=== PATIENT | male | born 1945 | race Caucasian/White ===

== ENCOUNTER 2023-09-02 23:40 | Inpatient (IN) | payer MEDICARE, OTHER, SELFPAY ==
[2023-09-02 20:07] VITALS: BP 158/78
[2023-09-02 21:06] LABS: % Basophils 0.3 % (0-2); % Eosinophils 0.8 % (0-6); % Immature Granulocytes 0.5 % (0-0.5); % Lymphocytes 12.6 % (20.5-51.1); % Monocytes 10.6 % (1.7-9.3); % Neutrophils 75.2 % (42.2-75.2); Absolute Eosinophils 0.1 10^3/uL (0-0.7); Absolute Immature Granulocytes 0.1 10^3/uL (0-0.05); Absolute Lymphocytes 1.3 10^3/uL (1.2-3.4); Absolute Monocytes 1.1 10^3/uL (0.1-0.6); Hematocrit 33.5 % (39.0-52.0); Hemoglobin 11.4 g/dL (13.0-18.0); Mean Corpuscular Hgb 27.8 pg (27.0-31.0); Mean Corpuscular Volume 81.7 fL (80.0-94.0); Mean Platelet Volume 10.5 fL (7.4-10.4); Nucleated Red Blood Cells % 0 % (-); Platelet Count 141 10^3/uL (130-400); Red Cell Dist. Width 15.9 % (11.5-14.5); White Blood Cell Count 10.6 10^3/uL (4.8-10.8)
[2023-09-02 21:07] LABS: Urine Albumin 3+ (Neg - Trace); Urine Bilirubin 1+ (Negative); Urine Character Very Cloudy (Clear); Urine Color Yellow; Urine Glucose Negative (Negative); Urine Ketone Trace (Negative); Urine Leukocyte 2+ (Negative); Urine Nitrite Positive (Negative); Urine Occult Blood 4+ (Negative); Urine Urobilinogen 2+ (Neg - 1+)
[2023-09-02 21:15] LABS: ALT (SGPT) 16 U/L (0-50); AST (SGOT) 21 U/L (17-59); Alkaline Phosphatase 73 U/L (38-126); Blood Urea Nitrogen 18 mg/dl (9-20); Calcium 9.3 mg/dl (8.4-10.2); Carbon Dioxide 26 mmol/L (22-30); Chloride 100 mmol/L (98-107); Glucose 161 mg/dl (70-99); Potassium 3.8 mmol/L (3.5-5.1); Sodium 134 mmol/L (135-145); Total Bilirubin 1.5 mg/dl (0.2-1.3); Total Protein 6.6 g/dl (6.3-8.2); eGFR > 60.00
[2023-09-02 21:23] LABS: Urine Bacteria Many (Negative); Urine White Cell >100 /HPF (0-5)
--- NOTE | 2023-09-02 21:57 | ED.GENMED ---
History of Present Illness
General
Chief Complaint: Urinary Symptoms
Source: patient
Exam Limitations: none
Time Seen by Provider: 09/02/23 21:13
Travel History
Have you had any contact with someone who has COVID-19?: No
Do you have any symptoms of coronavirus? Fever > 100 degrees, chills, cough, shortness of breath, sore throat, loss of taste or smell, muscle aches, or headache?: No
History of Present Illness
History of Present Illness:
78-year-old male with history of diabetes, coronary artery disease, hypertension hyperlipidemia presents with weakness chills and urinary frequency. He also notes a pus like material coming out when he urinates. He denies significant flank pain.
No vomiting. No chest pain or short breath. No other complaints at this time
Past History
Past History
ED Past Medical History: CAD, HTN, Hypercholesterolemia, NIDDM, Renal failure (Mild chronic kidney disease) and Other (BPH, low back pain, Sleep apnea, Kidney stones)
ED Past Surgical History: Cardiac (stent placement)
Patient has exhibited threatening behavior?: No
Social History
Tobacco: Non-smoker
Alcohol: None
Personal:
Living: with family
Employment: Retired
Family History
Family History: Other (Noncontributory)
Phy Exam
Physical Exam
Physical Exam:
General: Well-appearing male no acute respiratory distress
HEENT: Normocephalic atraumatic neck is supple
: Regular rate and rhythm no murmurs
Lungs: Clear no wheeze
Abdomen: Soft mild suprapubic tenderness no guarding or rebound normal bowel sounds
Extremities: No cyanosis
Skin: warm, no rashes
Neuro: Alert and oriented. no facial asymmetry
Course
Orders/Labs/Results
Orders:
Orders
09/02/23 20:55
Complete Blood Count/With Diff Urgent
Comprehensive Metabolic Panel Urgent
Urinalysis Reflex To Culture Urgent
Date Specimen was Collected: 09/02/23
Time Specimen was Collected: 20:41
Urine Microscopic Reflex Cult Urgent
Urine Culture Urgent
JOSE C Source: U
Specimen Description:
Date Specimen was Collected: 09/02/23
Time Specimen was Collected: 20:41
09/02/23 21:22
CT Abd/pel Without Iv Or Oral Urgent
Comment:
Reason For Exam: urinary sympoms
09/02/23 22:10
Lactic Acid Urgent
Blood Culture Q30M
JOSE C Source: Blood/Venous
Specimen Description:
Blood Culture Q30M
JOSE C Source: Blood/Venous
Specimen Description:
09/02/23 22:57
CefTRIAXone [Rocephin] 1,000 mg IV NOW STA
Abnormal Lab Results
09/02/23
20:55
RBC 4.10 L 10^6/uL
(4.70-6.10)
Hgb 11.4 L g/dL
(13.0-18.0)
Hct 33.5 L %
(39.0-52.0)
RDW 15.9 H %
(11.5-14.5)
MPV 10.5 H fL
(7.4-10.4)
Abs Immat Gran (auto) 0.1 H 10^3/uL
(0-0.05)
Absolute Neuts (auto) 8.0 H 10^3/uL
(1.4-6.5)
Absolute Monos (auto) 1.1 H 10^3/uL
(0.1-0.6)
Lymphocytes % 12.6 L %
(20.5-51.1)
Monocytes % 10.6 H %
(1.7-9.3)
Sodium 134 L mmol/L
(135-145)
Glucose 161 H mg/dl
(70-99)
Total Bilirubin 1.5 H mg/dl
(0.2-1.3)
Urine Ketones Trace A
(Negative)
Ur Occult Blood Reflex 4+ A
(Negative)
Urine Nitrite (Reflex) Positive A
(Negative)
Urine Bilirubin 1+ A
(Negative)
Urine Urobilinogen 2+ A
(Neg - 1+)
Leukocyte Esterase Rfl 2+ A
(Negative)
Urine WBC (Reflex) >100 A /HPF
(0-5)
Urine Bacteria (Reflex) Many A
(Negative)
Urine Albumin (Reflex) 3+ A
(Neg - Trace)
09/02/23 20:55
09/02/23 20:55
Vital Signs
Initial and Last Documented VS:
Initial Vital Signs
Temp Pulse Resp BP Pulse Ox
98.6 F 72 22 158/78 96
09/02/23 20:07 09/02/23 20:07 09/02/23 20:07 09/02/23 20:07 09/02/23 20:07
Last Documented Vital Signs
Temp Pulse Resp BP Pulse Ox
98.6 F 72 22 158/78 96
09/02/23 20:07 09/02/23 20:07 09/02/23 20:07 09/02/23 20:07 09/02/23 20:07
MDM/Problems Addressed
Differential Diagnosis Includes:
Urinary symptoms. Question UTI versus pyelonephritis versus kidney stone
Patient has multiple medical conditions affecting today's care including [id number] diabetes, coronary artery disease
Patient notes chills. Will check labs including lactic and blood cultures. Urinalysis pending will order CT
*Critical Care Note
Total Time (30-74mins, 75-104mins- exclusive of procedures): Not Applicable
Update Note
Update Note:
CT demonstrates signs of cystitis. Urinalysis with pyuria. Patient has multiple medical comorbidities. Will start Rocephin and admit to hospital.
ED Attending Note
-
Portions of this chart may have been created with voice recognition software.� Occasional wrong word or��sound alike� substitutions may have occurred due to the inherent limitations of voice recognition software.
Discharge Plan
Departure
Patient Disposition: Admit
Date of Disposition: 09/02/23
Time of Disposition: 23:00
Admit to: Telemetry
Presentation/result/management discussed w/ accepting MD/DO: Hospitalist
Discharge Problem:
Acute UTI
Prescriptions:
No Action
pioglitazone 15 MG tablet
15 mg PO DAILY
atorvastatin 40 MG tablet
40 mg PO DAILY
citalopram 10 MG tablet
1 mg PO DAILY
clopidogrel 75 MG tablet
75 mg PO DAILY
amlodipine 10 MG tablet
10 mg PO DAILY
metoprolol tartrate 50 MG tablet
50 mg PO BID
aspirin 81 MG tablet,chewable
81 mg PO DAILY
fenofibrate 160 MG tablet
160 mg PO DAILY
fesoterodine [Toviaz] 4 MG tablet extended release 24 hr
4 mg PO DAILY
plecanatide [Trulance] 3 MG tablet
3 mg PO DAILY
semaglutide [Ozempic] 1 MG/0.75 ML pen injector
1 ea SC WEEKLY
oxycodone-acetaminophen [Percocet] 5-325 mg Tablet
1 tab PO Q6HPRN PRN (Reason: pain) Qty: 12 0RF
Referrals:
NONE,* [Active] -
Interventions
Interventions:
ED-Male Genitourinary Assessment Last Done: 09/02/23 21:06
ED- Neurological Assessment Last Done: 09/02/23 21:06
Discharge Date and Time
Print Language: NIUEAN
[2023-09-02] MEDS: ROCEPHIN 1000 MG IV (23:03)
[2023-09-02] MEDS: NSS 1000 IV (23:04)
[2023-09-02 23:09] VITALS: BP 149/78
--- NOTE | 2023-09-02 23:23 | HPS.HSE ---
Family Physician
-
Family Physician: Lu Lopez NP
Chief Complaint
-
Urinary complaints
History of Present Illness
78 y/o Citizen Of [place] speaking male with hx of DM, CAD, HTN, HLD, enlarged prostate (just established with Urology) presents to ER for 1 day history of weakness. He reports progressive weakness. Also chills and urinary frequency. He noted pus with
urination. No flank pain. No vomiting, SOB or CP. No other complaints.
in ER, UA+ and CT showing cystitis, IVF and IV Abx were given
Medical History
Past Medical History
Past Medical History: Reports Other (DM, CAD, HTN, HLD, enlarged prostate)
Past Surgical History: Reports Cardiac (stent placement)
Social History
Tobacco: Non-smoker
Alcohol: None
Personal:
Living: With Family
Employment: Retired
Family History
Family History: Not pertinent
Allergies / Home Medications
Allergies reflects when Allergies were last updated in [facility].
Home Medications with original date entered in [facility]
Allergy/Medication List:
Allergies
Allergy/AdvReac Type Severity Reaction Status Date / Time
latex Allergy Rash Verified 09/02/23 20:10
Home Medications
amlodipine 10 mg tablet 10 mg PO DAILY 08/31/20
atorvastatin 40 mg tablet 40 mg PO HS 08/31/20
citalopram 10 mg tablet 10 mg PO DAILY 08/31/20
clopidogrel 75 mg tablet 75 mg PO DAILY 08/31/20
metoprolol tartrate 50 mg tablet 50 mg PO BID 08/31/20
cholecalciferol (vitamin D3) 1,250 mcg (50,000 unit) tablet 1,250 mcg PO Q5D 09/02/23
dulaglutide 4.5 mg/0.5 mL subcutaneous pen injector (Trulicity) 4.5 mg SC WE 09/02/23
pantoprazole 40 mg tablet,delayed release 40 mg PO DAILY PRN GERD 09/02/23
pioglitazone 30 mg tablet 30 mg PO DAILY 09/02/23
Review of Systems
-
A 12 point ROS was completed and negative except as noted: Yes
Physical Exam
Vital Signs
Vital Signs
Temp Pulse Resp BP Pulse Ox
98.6 F 63 12 158/78 95
09/02/23 20:07 09/02/23 23:15 09/02/23 23:15 09/02/23 20:07 09/02/23 23:15
Physical Exam
General: Well Developed and Well Nourished
HEENT: NormoCephalic and Anicteric
Respiratory: No Wheezes or Rales
Cardiac: S1/S2 and Regular Rhythm
GI: Soft
Neuro: AO x 3
Hematologic/Lymphatic: No Lymphadenopathy
Psych: Calm
Laboratory Results
-
09/02/23 20:55
09/02/23 20:55
Laboratory Results
Lactic Acid 1.0 mmol/L (0.7-2.0) 09/02/23 22:10
Total Bilirubin 1.5 mg/dl (0.2-1.3) H 09/02/23 20:55
AST 21 U/L (17-59) 09/02/23 20:55
ALT 16 U/L (0-50) 09/02/23 20:55
Alkaline Phosphatase 73 U/L (38-126) 09/02/23 20:55
Data Reviewed
-
CT Scan: Report Reviewed by me
Lab Data: Labs Reviewed by me
Impression/Plan
-
Assessment:
Cystitis/UTI
Suspected underlying enlarged prostate
- + UA, negative CT
- empiric Rocephin pending cultures
generalized weakness from above UTI
- PT/OT
Type 2 DM
- hold Trulicity/Actos
- continue SSI
- check A1c
CAD s/p stent
Essential HTN
HLD
- continue BP meds
- continue Plavix/Statin
DVT ppx: SCDs
Code: Full
[2023-09-03] VITALS (13 sets, daily range): BP systolic 134–215; BP diastolic 62–89; PULSE 70–74; O2SAT 95; BMI 55.4
[2023-09-03] MEDS: NSS 1000 IV ×3 (00:47→20:54)
--- NOTE | 2023-09-03 00:54 | PTCARENOTE ---
Mannual BP 170/68. BP reposted to Wesley REYES. Will recheck BP at 0400 per provider.
--- NOTE | 2023-09-03 03:23 | DOWNTIME ---
There was a [employer] Downtime on 09/02/2023 from 0100 to 09/03/2023 at 0300. Downtime documentation of patient's care, including medication administrations, has been reconciled in the electronic record per guidelines. Refer to the
patient's paper chart under the miscellaneous tab to see printed paper medication records and downtime forms.
[2023-09-03 07:00] LABS: Hemoglobin 10.9 g/dL (13.0-18.0); Mean Corpuscular Hgb 27.6 pg (27.0-31.0); Mean Corpuscular Volume 83.5 fL (80.0-94.0); Platelet Count 131 10^3/uL (130-400); Red Blood Cell Count 3.95 10^6/uL (4.70-6.10); Red Cell Dist. Width 15.9 % (11.5-14.5); White Blood Cell Count 10.5 10^3/uL (4.8-10.8)
[2023-09-03] MEDS: CELEXA 10 MG PO (07:00)
[2023-09-03 07:32] LABS: Blood Urea Nitrogen 15 mg/dl (9-20); Calcium 8.9 mg/dl (8.4-10.2); Carbon Dioxide 24 mmol/L (22-30); Chloride 102 mmol/L (98-107); Estimated Creatinine Clearance 110 ml/min; Glucose 114 mg/dl (70-99); Potassium 3.9 mmol/L (3.5-5.1); Sodium 136 mmol/L (135-145); eGFR > 60.00
[2023-09-03 07:53] LABS: Glucose - Point of Care 109 mg/dl (70-99)
[2023-09-03] MEDS: NOVOLOG FLEXPEN-LOW RESISTANCE SC ×2 (08:00→11:47)
[2023-09-03] MEDS: PLAVIX 75 MG PO (08:08)
[2023-09-03] MEDS: LOPRESSOR 50 MG PO ×2 (08:08→20:12)
[2023-09-03] MEDS: NORVASC 10 MG PO (08:08)
--- NOTE | 2023-09-03 09:16 | W.PN.HOSP.TC ---
Addendum entered and electronically signed by Alexandre Ceballos DO 09/03/23 09:23:
Bladder scan was 150 cc. Add tamsulosin.
Original Note:
Today's Communication/Plan
-
Bladder scan
Await cultures
Continue antibiotics
Bowel regimen
Assessment / Plan
Assessment / Plan
Gen-AAOx3, NAD, morbid obesity
HEENT-NC, AT, anicteric, clear oral mm
Neck-supple
CV-reg, no M, +S1/S2
Lungs-clear B/L
Abd-soft, NT, ND
Ext-no edema
Musculoskeletal-no cyanosis, clubbing
Skin-warm and dry
Neuro-grossly non-focal
Psych-calm, cooperative
Acute cystitis -no anatomic abnormalities noted on CT scan. No stones noted. Hemodynamically stable. Cultures pending. Continue IV Rocephin for now. Patient denies history of UTI in the past.
Suspected BPH. Check bladder scan now, discussed with nurse. Constipation may be contributing, patient states last bowel movement was several days ago. Bowel regimen ordered. He has a urologist, he does not remember the name. Recommend
outpatient follow-up.
Hyponatremia -present on admission. Resolved.
CAD -history of stent. Stable. Continue clopidogrel.
Essential hypertension -blood pressure elevated. Recheck after medications.
DM2 without hyperglycemia -he is on pioglitazone and Trulicity at home. Glucose 114 this morning. Hemoglobin A1c pending.
Hyperlipidemia -continue atorvastatin.
Morbid obesity due to excess calories
Full code
Patient son updated on the phone. All questions answered.
Anticipated Discharge: Within 24 hours
Subjective/Interval History
-
Date of Service: September 03, 2023
Patient seen and examined. Feeling better overall. Denies dysuria, flank pain. No complaints. Spoke with patient with the help of patient's son to interpret.
Objective Data
-
Labs:
Laboratory Results
09/02/23 09/03/23
20:55 06:23
WBC 10.6 10.5
Hgb 11.4 L 10.9 L
Hct 33.5 L 33.0 L
Plt Count 141 131
Sodium 136
Potassium 3.9
Chloride 102
Carbon Dioxide 24
BUN 15
Creatinine 0.7
Glucose 114 H
Calcium 8.9
Vital Signs:
Vital Signs
Temp Pulse Resp BP Pulse Ox
98.7 F 77 18 170/89 94
09/03/23 07:30 09/03/23 07:30 09/03/23 07:30 09/03/23 08:58 09/03/23 07:30
I&O
09/02/23 09/03/23 09/04/23
06:59 06:59 06:59
Intake Total 360 / 360
Output Total 300 / 300
Balance 60 / 60
Review of Systems
-
Unable to obtain full review of systems at this time due to: Language Barrier
History Source: Patient
All other systems: Reviewed and negative
[2023-09-03] MEDS: MIRALAX 17 GRAMS PO (09:42)
[2023-09-03] MEDS: SENOKOT-S 1 TABLET PO ×2 (09:43→20:13)
[2023-09-03] MEDS: FLOMAX 0.400000000000000022 MG PO (09:43)
[2023-09-03 10:41] LABS: Glycohemoglobin (HgbA1c) 6.7 % (4.0-5.6)
[2023-09-03 11:46] LABS: Glucose - Point of Care 139 mg/dl (70-99)
[2023-09-03] MEDS: ROCEPHIN 1000 MG IV (15:13)
[2023-09-03] MEDS: STERILE WATER FOR INJECTION 10 ML IV (15:13)
--- NOTE | 2023-09-03 16:14 | CM ---
rd manager reviewed patient's chart and met with patient and patient lives with his spouse and daughter in a multilevel home, patient is independent with adl's and ambulation, patient states he has a CPAP at home. Patient has a prescription plan
and uses [facility].
PCP: Lu Lopez
Plan: Home with family when stable.
[2023-09-03 16:42] LABS: Glucose - Point of Care 151 mg/dl (70-99)
[2023-09-03] MEDS: NOVOLOG FLEXPEN-LOW RESISTANCE 1 UNITS SC (17:24)
[2023-09-03] MEDS: LIPITOR 40 MG PO (20:54)
[2023-09-03 21:14] LABS: Glucose - Point of Care 158 mg/dl (70-99)
[2023-09-04] MEDS: NSS 1000 IV (06:34)
[2023-09-04 07:19] LABS: Glucose - Point of Care 112 mg/dl (70-99)
[2023-09-04 07:35] VITALS: BP 120/75
[2023-09-04] MEDS: NOVOLOG FLEXPEN-LOW RESISTANCE SC (07:46)
[2023-09-04] MEDS: FLOMAX 0.400000000000000022 MG PO (07:47)
[2023-09-04] MEDS: NORVASC 10 MG PO (07:47)
[2023-09-04] MEDS: LOPRESSOR 50 MG PO (07:47)
[2023-09-04] MEDS: CELEXA 10 MG PO (07:47)
[2023-09-04] MEDS: MIRALAX 17 GRAMS PO (07:48)
[2023-09-04] MEDS: PLAVIX 75 MG PO (07:48)
[2023-09-04] MEDS: SENOKOT-S 1 TABLET PO (07:48)
--- NOTE | 2023-09-04 10:40 | W.PN.HOSP.TC ---
Today's Communication/Plan
-
Discharge
Assessment / Plan
Assessment / Plan
Gen-AAOx3, NAD, morbid obesity
HEENT-NC, AT, anicteric, clear oral mm
Neck-supple
CV-reg, no M, +S1/S2
Lungs-clear B/L
Abd-soft, NT, ND
Ext-no edema
Musculoskeletal-no cyanosis, clubbing
Skin-warm and dry
Neuro-grossly non-focal
Psych-calm, cooperative
Acute cystitis -no anatomic abnormalities noted on CT scan. No stones noted. Preliminary urine culture shows greater than 100,000 Proteus, sensitivity pending. I spoke with microbiology lab. Blood cultures negative so far.
Based on [facility] antibiogram, can use Augmentin on discharge. Follow-up on urine culture sensitivity. Discussed with patient and nurse.
He has a urologist, he does not remember the name. Recommend outpatient follow-up.
Bladder scan yesterday showed 150 cc. Differential diagnosis for nocturia includes overactive bladder versus BPH versus other causes. Counseled patient to avoid caffeine and alcohol, reduce fluid intake after dinnertime.
Hyponatremia -present on admission. Resolved.
CAD -history of stent. Stable. Continue clopidogrel.
Essential hypertension -blood pressure elevated. Recheck after medications.
DM2 without hyperglycemia -he is on pioglitazone and Trulicity at home. Glucose 114 this morning. Hemoglobin A1c 6.7%.
Hyperlipidemia -continue atorvastatin.
Morbid obesity due to excess calories
Full code
Dispo -discharge today. Outpatient follow-up with urology and PCP.
32 minutes spent in discharge process.
Anticipated Discharge: Today
Subjective/Interval History
-
Date of Service: September 04, 2023
Patient seen and examined. Overall feeling better. Still complaining of nocturia. Patient's nurse assisted with translation.
Objective Data
-
Vital Signs:
Vital Signs
Temp Pulse Resp BP Pulse Ox
98.3 F 84 18 120/75 95
09/04/23 07:35 09/04/23 07:35 09/04/23 07:35 09/04/23 07:47 09/04/23 07:35
I&O
09/03/23 09/04/23 09/05/23
06:59 06:59 06:59
Intake Total 360 / 360 2200 / 2200
Output Total 300 / 300 2850 / 2850
Balance 60 / 60 -650 / -650
Review of Systems
-
Unable to obtain full review of systems at this time due to: Language Barrier
History Source: Patient
All other systems: Reviewed and negative
--- NOTE | 2023-09-04 10:46 | W.DS.TRANS ---
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
-
Discharge Instructions:
Discharge Diagnosis/Procedures UTI
Diet Low Fat,Low Cholesterol
Activity As tolerated
Driving Restrictions As prior to admission
Bathing Restrictions None
Instructions:
Stand-Alone Forms:
Changes to Home Medications: No
Discharge Medications:
DC Medications w/original date entered in [facility]
amlodipine 10 mg tablet 10 mg PO DAILY 08/31/20
atorvastatin 40 mg tablet 40 mg PO HS 08/31/20
citalopram 10 mg tablet 10 mg PO DAILY 08/31/20
clopidogrel 75 mg tablet 75 mg PO DAILY 08/31/20
metoprolol tartrate 50 mg tablet 50 mg PO BID 08/31/20
cholecalciferol (vitamin D3) 1,250 mcg (50,000 unit) tablet 1,250 mcg PO Q5D 09/02/23
dulaglutide 4.5 mg/0.5 mL subcutaneous pen injector (Trulicity) 4.5 mg SC WE 09/02/23
pantoprazole 40 mg tablet,delayed release 40 mg PO DAILY PRN GERD 09/02/23
pioglitazone 30 mg tablet 30 mg PO DAILY 09/02/23
amoxicillin 875 mg-potassium clavulanate 125 mg tablet 1 tab PO BID #10 tabs 09/04/23
tamsulosin 0.4 mg capsule 0.4 mg PO DAILY #30 caps 09/04/23
Home Medication Changes
Pending Results: No
--- NOTE | 2023-09-04 11:04 | CM ---
Chart reviewed home today
Plan; Home no needs.
[2023-09-04 11:45] VITALS: BP 145/79
== END 2023-09-04 12:33 | disposition home or self-care (01) | DRG 690 ==
LOC: 4 WEST ACU 23:40
PROVIDERS: Physician Assistant; ADMITTING PHYSICIAN Internal Medicine; ATTENDING PHYSICIAN Hospitalist; EMERGENCY PHYSICIAN Emergency Medicine; FAMILY PHYSICIAN Nurse Practitioner Adult Health
PROC: 5A09357 Assistance with Respiratory Ventilation, Less than 24 Consecutive Hours, Continuous Positive Airway Pressure (ICD-10-PCS; 2023-09-03)
DX: N30.00 Acute cystitis without hematuria (principal); E87.1 Hypo-osmolality and hyponatremia; Z68.43 Body mass index [BMI] 50.0-59.9, adult; R35.0 Frequency of micturition; E11.22 Type 2 diabetes mellitus with diabetic chronic kidney disease; N18.2 Chronic kidney disease, stage 2 (mild); I25.10 Atherosclerotic heart disease of native coronary artery without angina pectoris; I12.9 Hypertensive chronic kidney disease with stage 1 through stage 4 chronic kidney disease, or unspecified chronic kidney disease; E78.00 Pure hypercholesterolemia, unspecified; G47.30 Sleep apnea, unspecified; K59.00 Constipation, unspecified; B96.4 Proteus (mirabilis) (morganii) as the cause of diseases classified elsewhere; E66.01 Morbid (severe) obesity due to excess calories; N40.0 Benign prostatic hyperplasia without lower urinary tract symptoms; Z87.442 Personal history of urinary calculi; Z95.5 Presence of coronary angioplasty implant and graft; Z79.02 Long term (current) use of antithrombotics/antiplatelets; Z79.82 Long term (current) use of aspirin; Z79.85 Long-term (current) use of injectable non-insulin antidiabetic drugs; Z79.891 Long term (current) use of opiate analgesic; Z91.040 Latex allergy status
CPT/HCPCS: 74176; 80048; 80053; 81003; 81015; 82962; 83036; 83605; 85025; 85027; 87040; 87086; 87088; 87186; 94660; 97161; 97166; 99285

== ENCOUNTER 2023-09-05 06:12 | Observation (INO) | payer MEDICARE, OTHER, SELFPAY ==
[2023-09-05] VITALS (10 sets, daily range): BP systolic 147–186; BP diastolic 67–104; BMI 42.0
--- NOTE | 2023-09-05 02:58 | ED.GENMED ---
History of Present Illness
General
Chief Complaint: Fever
Source: patient
Exam Limitations: none
Time Seen by Provider: 09/05/23 02:40
Nursing documentation reviewed up to this point in time: agreed with
Travel History
Have you had any contact with someone who has COVID-19?: No
Do you have any symptoms of coronavirus? Fever > 100 degrees, chills, cough, shortness of breath, sore throat, loss of taste or smell, muscle aches, or headache?: Yes
Symptoms:: fever
History of Present Illness
History of Present Illness:
Pleasant 78-year-old male presents with fever and right arm pain. He was discharged from the hospital at noon today after brief stay for urinary tract infection. Patient states that he has pain where the IV was removed from his right arm.
Past History
Past History
ED Past Medical History: CAD, HTN, Hypercholesterolemia, NIDDM, Renal failure (Mild chronic kidney disease) and Other (BPH, low back pain, Sleep apnea, Kidney stones)
ED Past Surgical History: Cardiac (stent placement)
Patient has exhibited threatening behavior?: No
Social History
Tobacco: Non-smoker
Alcohol: None
Personal:
Living: with family
Employment: Retired
Family History
Family History: Other (Noncontributory)
Review of Systems
Review of Systems
Allergies reviewed?: Yes
All Other Systems: ROS reviewed and negative except as documented in HPI and ROS
Constitutional: Reports fever and fatigue
EENT: Reports no symptoms
Respiratory: Reports no symptoms
Cardiac: Reports no symptoms
ABD/GI: Reports no symptoms
: Reports no symptoms
Musculoskeletal: Reports muscle pain
Skin: Reports no symptoms
Neurological: Reports weakness
Endocrine: Reports no symptoms
Hematologic/Lymphatic: Denies bleeding
Psychiatric: Reports no symptoms
Phy Exam
General Physical Exam
General Presentation: well appearing and mild distress
General Skin: warm, dry and other (Ecchymosis about the right and left mid arm)
General Habitus: normal
General Mental: alert
General Hydration: appears well hydrated
ENT Exam
ENT Exam: EOMI, pharynx normal, neck supple and normocephalic
Eye Exam
Eye Exam: PERRL, cornea clear and conjunctiva normal
Cardiovascular Exam
Cardiovascular Exam: regular rate/rhythm, no edema, no murmur and normal peripheral pulses
Pulmonary Exam
Pulmonary Exam: lungs clear, no respiratory distress, no rales, no crackles, no rhonchi, no stridor, no wheezing and no cough
Gastrointestinal Exam
Gastrointestinal Exam: normal bowel sounds, non tender, soft, no organomegaly, no pulsatile mass and non distended
Neurological Exam
Neurological Exam: alert, oriented x3, no motor deficits and speech normal
Musculoskeletal Exam
Musculoskeletal Exam: full ROM and no edema
Skin Exam
Skin Exam: normal color, warm/dry, no rash and no petechia
Psychiatric Exam
Psychiatric Exam: normal mood/affect
Course
Orders/Labs/Results
Orders:
Orders
09/05/23 02:41
Urinalysis Reflex To Culture Urgent
09/05/23 03:02
HYDROmorphone [Dilaudid] 1 mg IV NOW STA
Ondansetron Injectable [Zofran] 4 mg IV NOW STA
09/05/23 03:03
US Arms, Right [US Periph Venous UPPER Ext RT] Urgent
Comment:
Reason For Exam: Pain and possible swelling after IV removal
09/05/23 03:08
Complete Blood Count/With Diff Urgent
Comprehensive Metabolic Panel Urgent
Lactic Acid Q4H
Comment: CANCEL 2nd LACTIC ACID IF 1st LACTIC ACID IS LESS THAN 2
Procalcitonin Urgent
PCT Algorithmm Indication: Sepsis
09/05/23 04:50
HYDROmorphone [Dilaudid] 0.5 mg IV NOW STA
09/05/23 05:13
Ketorolac [Toradol] 15 mg .ROUTE .STK-MED ONE
09/05/23 05:14
Ketorolac [Toradol] 15 mg IV NOW STA
Abnormal Lab Results
09/05/23
03:08
RBC 4.20 L 10^6/uL
(4.70-6.10)
Hgb 11.5 L g/dL
(13.0-18.0)
Hct 34.2 L %
(39.0-52.0)
RDW 15.2 H %
(11.5-14.5)
Absolute Lymphs (auto) 1.0 L 10^3/uL
(1.2-3.4)
Absolute Monos (auto) 1.0 H 10^3/uL
(0.1-0.6)
Lymphocytes % 12.6 L %
(20.5-51.1)
Monocytes % 12.4 H %
(1.7-9.3)
Potassium 3.3 L mmol/L
(3.5-5.1)
Glucose 151 H mg/dl
(70-99)
Total Bilirubin 1.5 H mg/dl
(0.2-1.3)
09/05/23 03:08
09/05/23 03:08
Vital Signs
Initial and Last Documented VS:
Initial Vital Signs
Temp Pulse Resp BP Pulse Ox
100.5 F H 91 24 147/85 96
09/05/23 02:27 09/05/23 02:27 09/05/23 02:27 09/05/23 02:27 09/05/23 02:27
Last Documented Vital Signs
Temp Pulse Resp BP Pulse Ox
100.5 F H 88 18 186/79 94
09/05/23 02:27 09/05/23 04:54 09/05/23 04:54 09/05/23 04:54 09/05/23 04:54
*Critical Care Note
Total Time (30-74mins, 75-104mins- exclusive of procedures): Not Applicable
ED Attending Note
-
Portions of this chart may have been created with voice recognition software.� Occasional wrong word or��sound alike� substitutions may have occurred due to the inherent limitations of voice recognition software.
Discharge Plan
Departure
Patient Disposition: Admit
Date of Disposition: 09/05/23
Time of Disposition: 05:38
Admit to: Med/Surg
Presentation/result/management discussed w/ accepting MD/DO: Hospitalist
Patient with high blood pressure during this ER visit?: No
Condition: Good
Discharge Problem:
Fever, Weakness, Extremity pain
Prescriptions:
No Action
atorvastatin 40 MG tablet
40 mg PO HS
citalopram 10 MG tablet
10 mg PO DAILY
clopidogrel 75 MG tablet
75 mg PO DAILY
amlodipine 10 MG tablet
10 mg PO DAILY
metoprolol tartrate 50 MG tablet
50 mg PO BID
pantoprazole 40 mg tablet,delayed release (DR/EC)
40 mg PO DAILY PRN (Reason: GERD)
pioglitazone 30 mg tablet
30 mg PO DAILY
cholecalciferol (vitamin D3) 1,250 mcg (50,000 unit) Tablet
1,250 mcg PO Q5D
Trulicity 4.5 mg/0.5 mL pen injector
4.5 mg SC WE
tamsulosin 0.4 mg Capsule
0.4 mg PO DAILY Qty: 30 0RF
amoxicillin-pot clavulanate 875-125 mg tablet
1 tab PO BID Qty: 10 0RF
Referrals:
Lu Lopez NP [Family Provider] -
Interventions
Interventions:
*General Assessment Last Done: 09/05/23 03:33
*Neglect/Abuse Screening Last Done: 09/05/23 03:33
*ED COVID-19 Vaccine History Last Done: 09/05/23 03:33
ED- Neurological Assessment Last Done: 09/05/23 03:36
ED-Skin Assessment Last Done: 09/05/23 03:42
Discharge Date and Time
Print Language: Croatian
[2023-09-05 03:17] LABS: % Basophils 0.4 % (0-2); % Eosinophils 1.4 % (0-6); % Immature Granulocytes 0.5 % (0-0.5); % Lymphocytes 12.6 % (20.5-51.1); % Monocytes 12.4 % (1.7-9.3); % Neutrophils 72.7 % (42.2-75.2); Absolute Eosinophils 0.1 10^3/uL (0-0.7); Absolute Neutrophils 5.9 10^3/uL (1.4-6.5); Hematocrit 34.2 % (39.0-52.0); Hemoglobin 11.5 g/dL (13.0-18.0); Mean Corp Hgb Conc. 33.6 g/dL (33.0-37.0); Mean Corpuscular Hgb 27.4 pg (27.0-31.0); Mean Corpuscular Volume 81.4 fL (80.0-94.0); Mean Platelet Volume 10.2 fL (7.4-10.4); Nucleated Red Blood Cells % 0 % (-); Platelet Count 148 10^3/uL (130-400); Red Cell Dist. Width 15.2 % (11.5-14.5); White Blood Cell Count 8.1 10^3/uL (4.8-10.8)
[2023-09-05] MEDS: DILAUDID 1 MG IV (03:18)
[2023-09-05] MEDS: ZOFRAN 4 MG IV (03:19)
[2023-09-05 03:31] LABS: Lactic Acid 1.1 mmol/L (0.7-2.0)
[2023-09-05 03:33] LABS: ALT (SGPT) 17 U/L (0-50); AST (SGOT) 28 U/L (17-59); Alkaline Phosphatase 81 U/L (38-126); Blood Urea Nitrogen 17 mg/dl (9-20); Calcium 9.3 mg/dl (8.4-10.2); Carbon Dioxide 22 mmol/L (22-30); Chloride 105 mmol/L (98-107); Glucose 151 mg/dl (70-99); Potassium 3.3 mmol/L (3.5-5.1); Sodium 138 mmol/L (135-145); Total Bilirubin 1.5 mg/dl (0.2-1.3); Total Protein 6.8 g/dl (6.3-8.2); eGFR > 60.00
[2023-09-05 04:03] LABS: Procalcitonin < 0.05 ng/ml (0.0-0.25)
[2023-09-05] MEDS: DILAUDID 0.5 MG IV (04:58)
[2023-09-05] MEDS: TORADOL 15 MG IV (05:15)
--- NOTE | 2023-09-05 06:05 | HPS.HSE ---
Family Physician
-
Family Physician: Lu Lopez NP
Chief Complaint
-
R Arm Pain
History of Present Illness
Patient is a 78y M with PMH significant for ASCVD, HTN and DM-II who presents to ED complaining of severe right arm pain. Patient was admitted to from 09/01 - 09/03 secondary to cystitis. He was discharged to home 09/03 on PO abx and was
feeling fairly well according to his daughter. This afternoon / evening, patient began to have severe right arm pain. He has pain with any movement and was 'crying out' in pain at home. Patient denies any injury / trauma. He did have IV in the R
antecubital region during his recent hospital stay. Patient states that his urinary symptoms remain improved and he had been ambulating within the home prior to the onset of his pain.
His pain improved after several doses of IV pain medication in the ED.
Patient denies any prior history of similar symptoms.
At present, patient is feeling somewhat 'woozy' after pain medication in the ED and is unable to stand / ambulate steadily.
Medical History
Past Medical History
Past Medical History: Reports Other (DM, CAD, HTN, CANDICE, enlarged prostate)
Past Surgical History: Reports Cardiac (stent placement)
Social History
Tobacco: Non-smoker
Alcohol: None
Personal:
Living: With Family
Employment: Retired
Family History
Family History: Not pertinent
Allergies / Home Medications
Allergies reflects when Allergies were last updated in [facility].
Home Medications with original date entered in [facility]
Allergy/Medication List:
Allergies
Allergy/AdvReac Type Severity Reaction Status Date / Time
latex Allergy Rash Verified 09/05/23 02:27
Home Medications
amlodipine 10 mg tablet 10 mg PO DAILY Blood Pressure 08/31/20
atorvastatin 40 mg tablet 40 mg PO HS High Cholesterol 08/31/20
citalopram 10 mg tablet 10 mg PO DAILY depression/anxiety 08/31/20
clopidogrel 75 mg tablet 75 mg PO DAILY Blood Clot Prevention/Tx 08/31/20
metoprolol tartrate 50 mg tablet 50 mg PO BID blood pressure 08/31/20
cholecalciferol (vitamin D3) 1,250 mcg (50,000 unit) tablet 1,250 mcg PO Q5D Supplement 09/02/23
dulaglutide 4.5 mg/0.5 mL subcutaneous pen injector (Trulicity) 4.5 mg SC WE diabetes 09/02/23
pantoprazole 40 mg tablet,delayed release 40 mg PO DAILY PRN GERD 09/02/23
pioglitazone 30 mg tablet 30 mg PO DAILY diabetes 09/02/23
amoxicillin 875 mg-potassium clavulanate 125 mg tablet 1 tab PO BID #10 tabs 09/04/23
tamsulosin 0.4 mg capsule 0.4 mg PO DAILY #30 caps 09/04/23
Review of Systems
-
History Source: Patient and Family
A 12 point ROS was completed and negative except as noted: Yes
Constitutional: Denies Fever, Fatigue or Chills
Respiratory: Denies Cough or Trouble Breathing
Cardiac: Denies Chest Pain or Palpitations
Abdomen/GI: Denies Abdominal Pain, Nausea, Vomiting or Diarrhea
: Denies Dysuria, Frequency or Flank Pain
Musculoskeletal: Reports Joint Pain, Muscle Pain and Edema
Neurological: Reports Weakness; Denies Dizzy or Headache
Psych: Denies Depression or Anxiety
Physical Exam
Vital Signs
Vital Signs
Temp Pulse Resp BP Pulse Ox
98.9 F 88 18 186/79 94
09/05/23 05:00 09/05/23 04:54 09/05/23 04:54 09/05/23 04:54 09/05/23 04:54
Physical Exam
General: Other (78y M in no current distress.)
HEENT: Moist mucous membranes and Other (Thick neck.)
Respiratory: Clear; No Wheezes, Rales or Rhonchi
Cardiac: S1/S2 and Regular Rhythm; No Murmur
GI: Soft, Non Tender, Non Distended, Normal Bowel Sounds and Other (Obese)
Musculoskeletal: No Clubbing, No Cyanosis and Other (Increased warmth and focal tenderness lateral aspect of the R elbow without evident erythema, rash, skin lesions. Some discomfort with ROM. No palpable cords.)
Neuro: AO x 3
Laboratory Results
-
09/05/23 03:08
09/05/23 03:08
Laboratory Results
Lactic Acid Cancelled 09/05/23 07:00
Total Bilirubin 1.5 mg/dl (0.2-1.3) H 09/05/23 03:08
AST 28 U/L (17-59) 09/05/23 03:08
ALT 17 U/L (0-50) 09/05/23 03:08
Alkaline Phosphatase 81 U/L (38-126) 09/05/23 03:08
Impression/Plan
-
A/P: Patient is a 78y M with PMH significant for ASCVD, HTN and DM-II s/p recent admission for cystitis who presents to ED complaining of severe R arm pain.
RUE Pain
- Observe for further evaluation and treatment.
- ? superficial phlebitis given location / recent IV / etc.
- US done in the ED with no evidence for deep thrombus.
- Heat application. Follow for any new / worsening symptoms.
- Check inflammatory markers, uric acid, etc to rule out other possible etiologies for his pain.
- Pain seemed most improved with anti-inflammatory / Toradol and will continue pain control medications.
- OT evaluation. Follow for improvement.
Proteus UTI
- Stable. Symptoms remain improved per patient.
- Continue Augmentin and follow-up sensitivities.
ASCVD
- Stable. No current chest pain, etc.
- Continue current CV med regimen including Plavix, beta-jonnie, statin, etc.
Benign Hypertension
- Uncontrolled. Likely in part due to uncontrolled pain.
- Continue home med regimen with holding parameters.
- Adjust regimen as needed for adequate control.
DM-II
- Stable. Continue current med regimen.
- Follow glucose and cover with SSI as needed.
- A1C on recent admission was 6.7%.
CANDICE on CPAP
- Stable. Continue CPAP at HS.
Morbid Obesity due to excess calories
- Affects all aspects of care.
- Encourage healthy diet and increased activity with goal of weight loss.
DVT Prophylaxis: Lovenox
Code Status: Full
--- NOTE | 2023-09-05 07:05 | EDRN ---
the pt pressed the call pop and this RN and Latisha MANN entered the pts room, the pt stated that he needed to urinate and didn't want women present in the room and stated that he wanted to walk to the bathroom and stated that he wasn't sure why the
other nurse wouldn't let him get up, the pt sat up and stood at the side of the bed with no c/o lightheadedness or dizziness, the pt was able to ambulate to the bathroom and back to the stretcher with no issues, will continue to monitor the pt
closely
[2023-09-05 07:30] LABS: Urine Albumin Trace (Neg - Trace); Urine Bilirubin 1+ (Negative); Urine Character Clear (Clear); Urine Color Yellow; Urine Glucose Negative (Negative); Urine Ketone 2+ (Negative); Urine Leukocyte Trace (Negative); Urine Nitrite Negative (Negative); Urine Occult Blood Negative (Negative); Urine Urobilinogen 2+ (Neg - 1+)
[2023-09-05 07:42] LABS: Urine Mucus Many
[2023-09-05 07:45] LABS: Urine Amorphous Seen; Urine Red Blood Cell 0-2 /HPF (0-2)
--- NOTE | 2023-09-05 08:04 | EDRN ---
the pt was received from previous head athletic trainer RN, the pt is resting in stretcher in the lowest position, side rails up x2, call pop within reach, HOB elevated, no s/s of distress, RUE limb restriction, right arm swelling with tenderness to tough,
VS WNL, communications technologist at the pts bedside speaking with the pt and the pts daughter confirming medication reconciliation, will continue to monitor the pt closely
--- NOTE | 2023-09-05 08:13 | EDRN ---
Dr. Ceballos currently at the pts bedside speaking to the pt and the pts daughter
--- NOTE | 2023-09-05 08:15 | EDRN ---
Dr. Ceballos is speaking with the pt and the pts daughter and does not feel that the pt needs to stay in the hospital and wants the pt to be discharged
--- NOTE | 2023-09-05 08:17 | W.PN.HOSP.TC ---
Addendum entered and electronically signed by Alexandre Ceballos DO 09/05/23 08:22:
Hypokalemia -will replete.
Original Note:
Today's Communication/Plan
-
Discharge
Assessment / Plan
Assessment / Plan
Gen-AAOx3, NAD
HEENT-NC, AT, anicteric, clear oral mm
Neck-supple
CV-reg, no M, +S1/S2
Lungs-clear B/L
Abd-soft, NT, ND
Ext-no edema
Musculoskeletal-no cyanosis, clubbing, right antecubital fossa pain with flexion of the right arm, no significant warmth or fluctuance or swelling or redness
Skin-warm and dry
Neuro-grossly non-focal
Psych-calm, cooperative
Right upper extremity superficial phlebitis -no thrombosis noted on Doppler ultrasound. Suspect related to recent hospitalization with peripheral IV catheter use. Main treatment will be warm/cold compresses, elevation, anti-inflammatories such as
ibuprofen. Avoid opiates as they will not be effective and only cause further side effects. Discussed with patient and daughter. Medically stable for discharge. Outpatient follow-up with PCP.
Proteus UTI -discharged yesterday on Augmentin, will continue.
Full code
Anticipated Discharge: Today
Subjective/Interval History
-
Date of Service: September 05, 2023
Patient seen and examined. Daughter at the bedside to help with translation. He feels better today, less arm pain. No other complaints.
Objective Data
-
Labs:
Laboratory Results
09/05/23
03:08
WBC 8.1
Hgb 11.5 L
Hct 34.2 L
Plt Count 148
Sodium 138
Potassium 3.3 L
Chloride 105
Carbon Dioxide 22
BUN 17
Creatinine 0.7
Glucose 151 H
Calcium 9.3
Total Bilirubin 1.5 H
AST 28
ALT 17
Alkaline Phosphatase 81
Vital Signs:
Vital Signs
Temp Pulse Resp BP Pulse Ox
97.6 F 80 15 166/104 92
09/05/23 07:56 09/05/23 08:00 09/05/23 08:00 09/05/23 08:00 09/05/23 08:00
Review of Systems
-
Unable to obtain full review of systems at this time due to: Language Barrier
--- NOTE | 2023-09-05 08:22 | W.DS.TRANS ---
DC Summary - It Analyst
-
Discharge Instructions:
Discharge Diagnosis/Procedures Right arm superficial phlebitis
Diet Diabetic, Carb Controlled
Activity As tolerated
Driving Restrictions As prior to admission
Bathing Restrictions None
Instructions:
Stand-Alone Forms:
Changes to Home Medications: No
Discharge Medications:
DC Medications w/original date entered in [facility]
amlodipine 10 mg tablet 10 mg PO DAILY Blood Pressure 08/31/20
atorvastatin 40 mg tablet 40 mg PO HS High Cholesterol 08/31/20
citalopram 10 mg tablet 10 mg PO DAILY depression/anxiety 08/31/20
clopidogrel 75 mg tablet 75 mg PO DAILY Blood Clot Prevention/Tx 08/31/20
metoprolol tartrate 50 mg tablet 50 mg PO BID blood pressure 08/31/20
pantoprazole 40 mg tablet,delayed release 40 mg PO DAILY PRN GERD 09/02/23
pioglitazone 30 mg tablet 30 mg PO DAILY diabetes 09/02/23
amoxicillin 875 mg-potassium clavulanate 125 mg tablet 1 tab PO BID #10 tabs 09/04/23
acetaminophen 500 mg tablet (Tylenol Extra Strength) 1,000 mg PO HSPRN PRN mild pain 09/05/23
chlorhexidine gluconate 0.12 % mouthwash 15 ml buccal DAILY PRN gingivitis 09/05/23
cholecalciferol (vitamin D3) 1,250 mcg (50,000 unit) capsule 1,250 mcg PO Q5D 09/05/23
clotrimazole-betamethasone 1 %-0.05 % topical cream 1 applic topical DAILYPRN PRN penis 09/05/23
dulaglutide 4.5 mg/0.5 mL subcutaneous pen injector (Trulicity) 4.5 mg SC WE 09/05/23
ibuprofen 800 mg tablet 800 mg PO Q6H PRN arm pain #20 tabs 09/05/23
ketoconazole 2 % topical cream 1 applic topical DAILYPRN PRN penis 09/05/23
Home Medication Changes
Pending Results: No
[2023-09-05] MEDS: KCL 40 MEQ PO (08:43)
== END 2023-09-05 10:00 | disposition home or self-care (01) ==
LOC: ED 06:12
PROVIDERS: ADMITTING PHYSICIAN Hospitalist; ATTENDING PHYSICIAN Hospitalist; EMERGENCY PHYSICIAN Student in an Organized Health Care Education/Training Program; FAMILY PHYSICIAN Nurse Practitioner Adult Health
DX: I80.8 Phlebitis and thrombophlebitis of other sites (principal); R50.9 Fever, unspecified; M79.601 Pain in right arm; N40.0 Benign prostatic hyperplasia without lower urinary tract symptoms; E78.00 Pure hypercholesterolemia, unspecified; G47.33 Obstructive sleep apnea (adult) (pediatric); I12.9 Hypertensive chronic kidney disease with stage 1 through stage 4 chronic kidney disease, or unspecified chronic kidney disease; E11.22 Type 2 diabetes mellitus with diabetic chronic kidney disease; I25.10 Atherosclerotic heart disease of native coronary artery without angina pectoris; R53.1 Weakness; E66.01 Morbid (severe) obesity due to excess calories; Z68.41 Body mass index [BMI] 40.0-44.9, adult; E87.6 Hypokalemia; N30.90 Cystitis, unspecified without hematuria; B96.4 Proteus (mirabilis) (morganii) as the cause of diseases classified elsewhere; Z95.5 Presence of coronary angioplasty implant and graft; Z87.442 Personal history of urinary calculi; Z79.02 Long term (current) use of antithrombotics/antiplatelets; Z79.84 Long term (current) use of oral hypoglycemic drugs
CPT/HCPCS: 80053; 81003; 81015; 83605; 84145; 85025; 93971

== ENCOUNTER → 2023-10-28 11:08 | Outpatient (REF) | payer MEDICARE, OTHER, SELFPAY | LOC: HWRCS 11:08 | PROVIDERS: ATTENDING PHYSICIAN Nurse Practitioner Adult Health | DX: R06.02 Shortness of breath (principal) | CPT/HCPCS: 93306 ==

== ENCOUNTER → 2023-11-11 13:47 | Outpatient (REF) | payer MEDICARE, OTHER, SELFPAY | LOC: HWRAD 13:47 | PROVIDERS: ATTENDING PHYSICIAN Urology; FAMILY PHYSICIAN Nurse Practitioner Adult Health | DX: N30.00 Acute cystitis without hematuria (principal) | CPT/HCPCS: 76770 ==

== ENCOUNTER → 2023-12-25 07:16 | Outpatient (REF) | payer MEDICARE, OTHER, SELFPAY | LOC: EMG 07:16 | PROVIDERS: ATTENDING PHYSICIAN Physician Assistant Surgical | DX: M25.522 Pain in left elbow (principal); G56.22 Lesion of ulnar nerve, left upper limb | CPT/HCPCS: 95886; 95909 ==

== ENCOUNTER 2024-09-28 15:46 | Inpatient (IN) | payer MEDICARE, OTHER, SELFPAY ==
[2024-09-28] VITALS (8 sets, daily range): BP systolic 128–148; BP diastolic 64–76; BMI 44.3
[2024-09-28] MEDS: DILAUDID 0.5 MG IV ×3 (13:25→22:58)
[2024-09-28 13:41] LABS: % Basophils 0.7 % (0-2); % Eosinophils 3.1 % (0-6); % Immature Granulocytes 0.6 % (0-0.5); % Lymphocytes 28.8 % (20.5-51.1); % Monocytes 9.2 % (1.7-9.3); % Neutrophils 57.6 % (42.2-75.2); Absolute Basophils 0.1 10^3/uL (0-0.2); Absolute Eosinophils 0.2 10^3/uL (0-0.7); Absolute Monocytes 0.6 10^3/uL (0.1-0.6); Hematocrit 35.8 % (39.0-52.0); Hemoglobin 11.8 g/dL (13.0-18.0); Mean Corpuscular Hgb 27.8 pg (27.0-31.0); Mean Corpuscular Volume 84.4 fL (80.0-94.0); Mean Platelet Volume 10.1 fL (7.4-10.4); Nucleated Red Blood Cells % 0 % (-); Platelet Count 148 10^3/uL (130-400); Red Blood Cell Count 4.24 10^6/uL (4.70-6.10); Red Cell Dist. Width 16.2 % (11.5-14.5); White Blood Cell Count 6.9 10^3/uL (4.8-10.8)
[2024-09-28 13:51] LABS: APTT 34.9 Sec (23.4-35.0); INR 1.35
[2024-09-28 13:58] LABS: ALT (SGPT) 18 U/L (0-50); AST (SGOT) 20 U/L (17-59); Albumin 4.4 g/dl (3.5-5.0); Alkaline Phosphatase 72 U/L (38-126); Blood Urea Nitrogen 19 mg/dl (9-20); Calcium 9.4 mg/dl (8.4-10.2); Carbon Dioxide 27 mmol/L (22-30); Chloride 107 mmol/L (98-107); Estimated Creatinine Clearance 101 ml/min; Glucose 195 mg/dl (70-99); Potassium 3.9 mmol/L (3.5-5.1); Sodium 142 mmol/L (135-145); Total Bilirubin 0.9 mg/dl (0.2-1.3); Total Protein 7.3 g/dl (6.3-8.2); eGFR > 60.00
[2024-09-28] MEDS: DILAUDID 1 MG IV (14:00)
--- NOTE | 2024-09-28 14:54 | ED.MUSCINJ ---
HPI-Injury
General
Chief Complaint: Fall
Source: patient
Time Seen by Provider: 09/28/24 13:08
History of Present Illness-Injury
Initial Injury comments:
Note:
CHIEF COMPLAINT(S)
Right hip pain after a fall.
HISTORY OF PRESENT ILLNESS
The patient is a 79-year-old male who presents with right hip pain following a fall that occurred while he was outside adjusting his slipper. He did not experience any lightheadedness or dizziness prior to the fall and specifically denies any loss
of consciousness. The patient is on a blood thinner, Apixaban. He denies trauma to his head or any neck or chest pain after the incident. There is a noticeable concern about his right leg being shortened and externally rotated, which raises
suspicion of a hip fracture. The patient has a history of diabetes and hypertension and is being seen by a concrete products machine operator. He denies any past surgeries on the hip.
ADDITIONAL HISTORY OBTAINED FROM SOURCES OTHER THAN THE PATIENT
Per a family member present, it was stated that during the fall, the patient landed in a way that prevented his head from hitting the ground.
CHRONIC MEDICAL CONDITIONS SIGNIFICANTLY AFFECTING CARE
- Diabetes
- Hypertension
SOCIAL HISTORY
The patient lives with his family and typically uses a walker but was using a cane at the time of the fall.
MEDICATIONS
The patient is currently on Apixaban for anticoagulation.
PHYSICAL EXAM
-Heart: RRR
Lungs: CTA
Musculoskeletal: The right leg appears shortened and externally rotated, indicating a potential hip fracture. c-spine nontender
Skin is intact
Neurologic: alert and oriented
- Nursing notes reviewed. Vital signs now show regular rhythm, excluding concerns for cardiac arrhythmia, though continuous monitoring is advised.
PLAN
- Obtain X-rays of the hip to evaluate for fracture.
- Start intravenous access for potential pain management.
- Administer pain medication as needed.
DIFFERENTIAL DIAGNOSIS
The Differential Diagnosis includes, in no particular order and is not limited to:
1. Hip fracture
2. Hip dislocation
3. Contusion of the hip
CARE-UPDATE
09/28/24 - 14:52
X-rays confirmed a displaced and angulated intertrochanteric fracture of the right hip. Plan to notify hospitalists and orthopedic team for further evaluation, and arrange for patient admission to the hospital for management.
Past History
Past History
ED Past Medical History: CAD, HTN, Hypercholesterolemia, NIDDM, Renal failure (Mild chronic kidney disease) and Other (BPH, low back pain, Sleep apnea, Kidney stones)
ED Past Surgical History: Cardiac (stent placement)
Patient has exhibited threatening behavior?: No
Social History
Tobacco: Non-smoker
Alcohol: None
Personal:
Living: with family
Employment: Retired
Family History
Family History: Other (Noncontributory)
Phy Exam
Physical Exam
Physical Exam:
see above
Injury Course
Orders/Labs/Results
Orders:
Orders
09/28/24 13:16
CR Hip - RT w/wo Pel 2-3 Vw* Urgent
Comment:
Reason For Exam: fall, hip pain
Include a pelvis x-ray?: Yes
09/28/24 13:19
HYDROmorphone [Dilaudid] 0.5 mg IV NOW STA
09/28/24 13:30
Type+Screen Urgent
Complete Blood Count/With Diff Urgent
Comprehensive Metabolic Panel Urgent
PTT Urgent
Prothrombin Time Urgent
09/28/24 13:42
ABO2 Urgent
BBK Wristband Number:
Associate notified that ABO2 has been ordered: [id number]
Date: 09/28/24
Time: 13:42
Bone Char Kiln Operator ID: [id number]
09/28/24 13:55
HYDROmorphone [Dilaudid] 1 mg IV NOW STA
Abnormal Lab Results
06/10/25
13:30
RBC 4.24 L 10^6/uL
(4.70-6.10)
Hgb 11.8 L g/dL
(13.0-18.0)
Hct 35.8 L %
(39.0-52.0)
RDW 16.2 H %
(11.5-14.5)
Immature Gran % 0.6 H %
(0-0.5)
PT 17.0 H Sec
(11.4-14.6)
Glucose 195 H mg/dl
(70-99)
09/28/24 13:30
09/28/24 13:30
*Critical Care Note
Total Time (30-74mins, 75-104mins- exclusive of procedures): Not Applicable
ED Attending Note
-
Portions of this chart may have been created with voice recognition software.� Occasional wrong word or��sound alike� substitutions may have occurred due to the inherent limitations of voice recognition software.
Discharge Plan
Departure
Patient Disposition: Admit
Date of Disposition: 09/28/24
Time of Disposition: 14:55
Presentation/result/management discussed w/ accepting MD/DO: Hospitalist
Discharge Problem:
Closed fracture of right hip
Prescriptions:
No Action
atorvastatin 40 MG tablet
40 mg PO HS
citalopram 10 MG tablet
10 mg PO DAILY
amlodipine 10 MG tablet
10 mg PO DAILY
metoprolol tartrate 50 MG tablet
50 mg PO BID
pantoprazole 40 mg tablet,delayed release (DR/EC)
40 mg PO DAILY
pioglitazone 30 mg tablet
30 mg PO DAILY
Trulicity 4.5 mg/0.5 mL pen injector
4.5 mg SC WE@1900
tamsulosin [Flomax] 0.4 mg Capsule
0.8 mg PO HS
cholecalciferol (vitamin D3) [Vitamin D3] 125 mcg (5,000 unit) Tablet
125 mcg PO DAILY
Eliquis 5 mg Tablet
5 mg PO BID
Referrals:
Lu Lopez RESTAURANT DELIVERY DRIVER [Family Provider, Family Practice]
Interventions
Interventions:
*Risk Screen - Suicide Last Done: 09/28/24 13:10
*General Assessment Last Done: 09/28/24 13:10
*Neglect/Abuse Screening Last Done: 09/28/24 13:10
*ED- Fall Risk Assessment Last Done: 09/28/24 13:10
*ED COVID-19 Vaccine History Last Done: 09/28/24 13:10
ED-Musculoskeletal Assessment Last Done: 09/28/24 13:21
ED- Neurological Assessment Last Done: 09/28/24 13:20
ED-Skin Assessment Last Done: 09/28/24 13:21
Discharge Date and Time
Print Language: Scottish
--- NOTE | 2024-09-28 15:06 | HPS.HSE ---
Addendum entered and electronically signed by Ez Elizondo MD 09/28/24 16:35:
Seen and examined by me independently in collaboration with the nurse practitioner Shayy.
Past medical history/social history/medication/allergies reviewed.
Lab data and imaging data reviewed.
Nepalese-speaking patient but family at bedside who provided the history. Patient does understand some Andorran and speaks a little Andorran.
Patient was getting outside the house with his slippers on slipped and fell down onto the right side and came in with a right hip pain. He is diagnosed to have a right intertrochanteric hip fracture and getting admitted for surgical fixation.
He denies any loss of consciousness.
He has a history of CAD with prior stents but denies any history of heart attack or heart failure. Denies any angina story. Follows with auctioneer art with [facility]. He says he may had stress test a month ago and doctors office but
is not clear on the details. Last visit the auctioneer art to decrease the dose of metoprolol.
Eliquis was introduced by his auctioneer art apparently but did not know he had atrial fibrillation [echo from last year shows he was in atrial fibrillation]. Denies palpitation.
In the last couple of months is seeing increasing lower extremity swelling and also exertional shortness of breath but did not had any evaluation apparently. Not on any diuretics. Denies any primary lung problems of asthma or emphysema.
Non-smoker. He has got history of sleep apnea on CPAP. No orthopnea or cough.
Alert and oriented.
No respiratory distress lying flat in the ER.
Has shortness of breath S2 heard irregular heart rate and 70s on the monitor A-fib
Abdomen obese, soft
Bilateral lower extremity edema 2+
Labs are okay.
EKG pending.
With 2-month history of progressive lower extremity edema and shortness of breath on exertion evaluate for heart failure. Check BNP. Check a chest x-ray. Consult cardiology for preop cardiac eval.
Hold Eliquis for procedure. Orthopedics to see with regards to surgical fixation.
Full code.
Original Note:
Family Physician
-
Family Physician: Lu Lopez NP
Chief Complaint
-
mechanical fall
History of Present Illness
Patient is a 79-year-old male with past medical history significant for hypertension, diabetes, GERD, atrial fibrillation, depression/anxiety and CAD who presented to [facility] ED for evaluation s/p mechanical fall. Patient family at bedside who assist
with HPI as patient is primarily Nepalese speaking. Patient walked outside this morning in slippers when he lost his footing and feel on right hip. Patient was in significant discomfort and unable to get up so family called EMS for assistance. Denies
any recent illness, fever, chills, cough, shortness of breath, chest pain, nausea, vomiting, constipation, diarrhea or urinary symptoms.
Medical History
Past Medical History
Past Medical History: Reports Other
Additional Past Medical History:
DM
CAD
hypertension
atrial fibrillation
CANDICE
enlarged prostate
Past Surgical History: Reports Other
Additional Past Surgical History:
cardiac stent
Social History
Tobacco: Non-smoker
Alcohol: None
Personal:
Living: With Family
Employment: Retired
Family History
Family History: Not pertinent
Allergies / Home Medications
Allergies reflects when Allergies were last updated in [facility].
Home Medications with original date entered in [facility]
Allergy/Medication List:
Allergies
Allergy/AdvReac Type Severity Reaction Status Date / Time
latex Allergy Rash Verified 09/05/23 02:27
Home Medications
amlodipine 10 mg tablet 10 mg PO DAILY Blood Pressure 08/31/20
atorvastatin 40 mg tablet 40 mg PO HS High Cholesterol 08/31/20
citalopram 10 mg tablet 10 mg PO DAILY depression/anxiety 08/31/20
metoprolol tartrate 50 mg tablet 50 mg PO BID blood pressure 08/31/20
pantoprazole 40 mg tablet,delayed release 40 mg PO DAILY GERD 09/02/23
pioglitazone 30 mg tablet 30 mg PO DAILY diabetes 09/02/23
dulaglutide 4.5 mg/0.5 mL subcutaneous pen injector (Trulicity) 4.5 mg SC WE@1900 Diabetes 09/05/23
apixaban 5 mg tablet (Eliquis) 5 mg PO BID Blood Clot Prevention/Tx 09/28/24
cholecalciferol (vitamin D3) 125 mcg (5,000 unit) tablet (Vitamin D3) 125 mcg PO DAILY Supplement 09/28/24
tamsulosin 0.4 mg capsule (Flomax) 0.8 mg PO HS Urinary Issue 09/28/24
Review of Systems
-
History Source: Patient and Family
Musculoskeletal: Reports Joint Pain (right hip pain )
Physical Exam
Vital Signs
Vital Signs
Temp Pulse Resp BP Pulse Ox
97.6 F 69 15 145/73 91
09/28/24 15:02 09/28/24 15:00 09/28/24 15:00 09/28/24 14:58 09/28/24 15:02
Physical Exam
General: Well Developed, Well Nourished, No Apparent Distress and Morbidly Obese
HEENT: NormoCephalic, Moist mucous membranes and Atraumatic
Respiratory: Clear
Cardiac: S1/S2 and Regular Rhythm
Breast: Deferred by me
GI: Soft, Non Tender, Non Distended and Normal Bowel Sounds
Rectal: Deferred by Provider
Genito-urinary: Deferred by me
Musculoskeletal: No Clubbing, No Cyanosis, No Edema and Other (right leg is shortened and externally rotated )
Skin: IV/Catheter Site
Neuro: Awake, Alert and Nonfocal/grossly intact
Psych: Calm
Laboratory Results
-
09/28/24 13:30
09/28/24 13:30
Laboratory Results
PT 17.0 Sec (11.4-14.6) H 09/28/24 13:30
INR 1.35 09/28/24 13:30
APTT 34.9 Sec (23.4-35.0) 09/28/24 13:30
Total Bilirubin 0.9 mg/dl (0.2-1.3) 09/28/24 13:30
AST 20 U/L (17-59) 09/28/24 13:30
ALT 18 U/L (0-50) 09/28/24 13:30
Alkaline Phosphatase 72 U/L (38-126) 09/28/24 13:30
Data Reviewed
-
Lab Data: Labs Reviewed by me
Impression/Plan
-
IMPRESSION/PLAN:
#right hip intertrochanteric fracture
Hip x-ray: read pending
- Admit to med/surg
- Consult Ortho
- pain regimen
- Consult cardiology for clearance for surgery
- EKG and BNP
#hypertension
- continue amlodipine and metoprolol
#hyperlipidemia
- continue atorvastatin
#atrial fibrillation
- continue metoprolol
- hold apixaban for surgery
#diabetes
- AccuCheck AC & HS
- SSI
- continue pioglitazone and Trulicity
#GERD
- continue pantoprazole
#CANDICE
patient own CPAP
#depression/anxiety
Code status: full code
DVT prophylaxis: SCDs
[2024-09-28 16:21] LABS: NT-proBNP 1930 pg/ml
--- NOTE | 2024-09-28 16:24 | CON.CAR ---
Addendum entered and electronically signed by Anurag Esparza MD 09/28/24 19:07:
I saw and examined the patient.
The Development Professional's note was reviewed and I agree with the note.
Comment: Briefly, 79-year-old man past medical history of cardiomyopathy with mildly reduced LVEF 45-50%, CAD with remote prior bare-metal stent placement and persistent atrial fibrillation on Eliquis who presents after mechanical fall and was found
to have hip fracture. Cardiology is asked to comment on his risk for operative repair.
History obtained through family members at bedside, patient has been experiencing worsening dyspnea over the last several weeks to months
Suspect he may have some degree of heart failure at this time
Plan to check proBNP
Will try to optimize his volume status with IV Lasix
Records from his primary hard metals engraver hand reviewed, Lexiscan nuclear stress test from August 2024 with fixed defect but no evidence of ischemia
Echo also from August 2024 with moderate MR and mildly reduced LV systolic function
No need to repeat the above testing
Okay to hold Eliquis while awaiting the OR
Original Note:
Consultation
Consultation Request
Date/Time Consultation Requested: 09/28/2024
Date/Time Consultation Performed: 09/28/2024
Requesting Provider: Dr. Elizondo
Performing Provider: Dr. Esparza
Reason for Consultation: Acute HF, Afib, hip fracture
Medical History
-
History of Present Illness:
Patient came to [facility] ER today after a mechanical fall at home and is being admitted with hip fracture cardiology is consulted for preoperative cardiovascular evaluation and concern for possible acute heart failure. Patient is 79 and lives at home
with his family, he does not speak [place] but multiple family members are present to help with translation. Patient slipped and fell with his slippers on the stairs outside of their home today and fell and had immediate pain and broke his hip.
Patient was brought to [facility], but generally follows with Dr. Leigh reid at [place]. Patient has a history of abnormal stress test leading to cardiac catheterization and bare-metal stenting of unknown vessels x 2 07/2014. He last saw
Frances in the office on 08/25/2024 and complained of TEMPLE for months and increased LE edema. Patient was found to be in newly diagnosed paroxysmal atrial fibrillation at that visit and was started on Eliquis 5 mg twice daily. He also had a monitor
placed and as noted above had a 100% atrial fibrillation burden. He also had an echo that showed moderately reduced EF at 45 to 50%. Patient is not chronically on a diuretic.
PMH:
EF 45 to 50% by echo 09/08/2024
CAD status post BMS x 2 unknown vessels 07/2014
Persistent A-fib
Chronic Eliquis OAC
Hyperlipidemia
DM 2
Moderate MR by echo 09/08/2024
Past Medical History
Past Medical History: Other (in HPI)
Past Surgical History: Cardiac (BMS unknown vessels 07/2014)
Social History
Tobacco: Non-Smoker
Alcohol: None
Drug: None
Living: With Family
Employment: Retired
Family History
Family History: Hypertension
Allergies / Home Medications
Allergy/AdvReac Type Severity Reaction Status Date / Time
latex Allergy Rash Verified 09/05/23 02:27
�Medication �Instructions �Recorded �Confirmed �Type
amlodipine 10 mg tablet 10 mg PO DAILY Blood Pressure 08/31/20 09/28/24 History
atorvastatin 40 mg tablet 40 mg PO HS High Cholesterol 08/31/20 09/28/24 History
citalopram 10 mg tablet 10 mg PO DAILY depression/anxiety 08/31/20 09/28/24 History
metoprolol tartrate 50 mg tablet 50 mg PO BID blood pressure 08/31/20 09/28/24 History
pantoprazole 40 mg tablet,delayed 40 mg PO DAILY GERD 09/02/23 09/28/24 History
release
pioglitazone 30 mg tablet 30 mg PO DAILY diabetes 09/02/23 09/28/24 History
dulaglutide 4.5 mg/0.5 mL 4.5 mg SC WE@1900 Diabetes 09/05/23 09/28/24 History
subcutaneous pen injector
(Trulicity)
apixaban 5 mg tablet (Eliquis) 5 mg PO BID Blood Clot 09/28/24 09/28/24 History
Prevention/Tx
cholecalciferol (vitamin D3) 125 125 mcg PO DAILY Supplement 09/28/24 09/28/24 History
mcg (5,000 unit) tablet (Vitamin
D3)
tamsulosin 0.4 mg capsule (Flomax) 0.8 mg PO HS Urinary Issue 09/28/24 09/28/24 History
Review of Systems
-
History Source: Patient and Family (son in law, daughter and grandchildren in the room and on the phone)
All other systems: Negative unless noted
Physical Exam
Vital Signs
Temp Pulse Resp BP Pulse Ox
97.6 F 67 22 137/76 88
09/28/24 15:02 09/28/24 16:00 09/28/24 16:00 09/28/24 16:00 09/28/24 16:00
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
HEENT: mmm
LUNGS: RA. No audible wheeze
CV: A-fib on telemetry. Irreg irreg, S1/S2, no murmur
ABD: soft, BS+, NT
EXT: +3 pitting B/L LE edema
NEURO: Gross non-focal
SKIN: No rash
Lab Results
09/28/24 13:30
09/28/24 13:30
Tju-Y-Dfhudwuvnnk Pept 1930 pg/ml 09/28/24 15:49
Impression / Plan
-
PCP: Dr. Lu Lopez
Card: Dr. Leigh Ann Daniels at [place]
Impression:
Admitted with mechanical fall and hip fracture 09/28/2024
Acute HFmrEF
EF 45 to 50% by echo 09/08/2024
CAD status post BMS x 2 unknown vessels 07/2014
Persistent A-fib
Chronic Eliquis OAC
Hyperlipidemia
DM 2
Moderate MR by echo 09/08/2024
ZIO monitor 09/08/2024: Continuous atrial fibrillation with 100% burden
Lexiscan nuclear stress test 09/08/2024: EF 54%, medium sized moderate defect in the anterior wall that is fixed
Echo 09/08/2024: [facility], EF 45 to 50%, moderate concentric LVH, mild to moderate TR, mild PHTN with PAP 40 mmHg, moderate MR, mild aortic regurgitation
Plan:
-Patient came to [facility] ER today after a mechanical fall at home and is being admitted with hip fracture cardiology is consulted for preoperative cardiovascular evaluation and concern for possible acute heart failure. Patient is 79 and lives at home
with his family, he does not speak [place] but multiple family members are present to help with translation. Patient slipped and fell with his slippers on the stairs outside of their home today and fell and had immediate pain and broke his hip.
Patient was brought to [facility], but generally follows with Dr. Frances reid at [place]. Patient has a history of abnormal stress test leading to cardiac catheterization and bare-metal stenting of unknown vessels x 2 07/2014. He last saw Dr. Daniels
in the office on 08/25/2024 and complained of TEMPLE for months and increased LE edema. Patient was found to be in newly diagnosed paroxysmal atrial fibrillation at that visit and was started on Eliquis 5 mg twice daily. He also had a monitor placed
and as noted above had a 100% atrial fibrillation burden. He also had an echo that showed moderately reduced EF at 45 to 50%. Patient is not chronically on a diuretic.
-ECG reviewed by me shows atrial fibrillation with controlled ventricular response
-Obtained records from primary hard metals engraver hand and then's reviewed and summarized within this note all performed by me on 09/28/2024
-Suspect patient is in acute HFmr EF. No need to repeat echo
-Recommend Lasix 40 mg IV x 1 now and assess for response
-Would recommend condom catheter if able to be placed given hip fracture and need for IV diuresis
-Patient is chronically on Lopressor 50 mg twice daily, would consider changing to Toprol-XL given acute HF and EF at 45%
-No evidence of ischemia on stress test 09/08/2024, it is possible that his newly HF is related to atrial arrhythmia although HR controlled. Atrial fibrillation burden was 100% by monitoring 09/08/2024
-Landyquprashant is on hold for surgery. No history of thromboembolic event
-Recommend IV diuresis and stabilization prior to planned hip repair, will reassess in a.m.
--- NOTE | 2024-09-28 18:35 | PTCARENOTE ---
pt arrived to 2S room 2104 via bed from the ED. pt is AAOx3, Finnish speaking. pt oriented to room, bed controls and plan of care with assistance of son, Rashawn. offering no c/o pain at this time. son went home to get pt's own CPAP machine and
will return shortly. care ongoing.
[2024-09-28] MEDS: NOVOLOG FLEXPEN-LOW RESISTANCE SC (19:45)
[2024-09-28] MEDS: ROXICODONE 5 MG PO (19:46)
[2024-09-28] MEDS: LASIX 40 MG IV (19:46)
[2024-09-28] MEDS: FLOMAX 0.8 MG PO (21:17)
[2024-09-28] MEDS: LOPRESSOR 50 MG PO (21:17)
[2024-09-28] MEDS: LIPITOR 40 MG PO (21:17)
[2024-09-28 21:36] LABS: Glucose - Point of Care 166 mg/dl (70-99)
[2024-09-29 06:00] VITALS: BMI 42.0
[2024-09-29 07:15] VITALS: BP 151/73
--- NOTE | 2024-09-29 07:22 | CON.ORTHO ---
Consultation
-
Date/Time Consultation Requested: September 28, 2024 at 3 PM
Date/Time Consultation Performed: September 29, 2024 at 6:30 AM
Requesting Provider: Dr Elizondo
Performing Provider: Christiano Massey PA-C for Dr. Dubose
Reason for Consultation: Right hip pain
Consultation - Orthopedics
History
Patient speaks Somali and very little Armenian. He seems to understand what I am telling him today. History primarily obtained from chart and his son Aston España.
This is a 79-year-old gentleman who was walking outside earlier yesterday and lost his balance. He fell on his right hip. There was immediate onset of pain with inability to bear weight. He was eventually transported to [facility]
emergency room and x-rays revealed right hip intertrochanteric fracture. In his fall no other injuries. No back pain, numbness, tingling or weakness. Overnight he was admitted to the hospitalist service with orthopedic consult. His son relays
that he normally walks with a cane. This appears to be mechanical fall with no preceding lightheadedness or dizziness. When he fell he did not strike his head or injure his neck.
Allergies / Home Medications
Allergy/AdvReac Type Severity Reaction Status Date / Time
latex Allergy Rash Verified 09/05/23 02:27
�Medication �Instructions �Recorded
amlodipine 10 mg tablet 10 mg PO DAILY Blood Pressure 08/31/20
atorvastatin 40 mg tablet 40 mg PO HS High Cholesterol 08/31/20
citalopram 10 mg tablet 10 mg PO DAILY depression/anxiety 08/31/20
metoprolol tartrate 50 mg tablet 50 mg PO BID blood pressure 08/31/20
pantoprazole 40 mg tablet,delayed 40 mg PO DAILY GERD 09/02/23
release
pioglitazone 30 mg tablet 30 mg PO DAILY diabetes 09/02/23
dulaglutide 4.5 mg/0.5 mL 4.5 mg SC WE@1900 Diabetes 09/05/23
subcutaneous pen injector
(Trulicity)
apixaban 5 mg tablet (Eliquis) 5 mg PO BID Blood Clot 09/28/24
Prevention/Tx
cholecalciferol (vitamin D3) 125 125 mcg PO DAILY Supplement 09/28/24
mcg (5,000 unit) tablet (Vitamin
D3)
tamsulosin 0.4 mg capsule (Flomax) 0.8 mg PO HS Urinary Issue 09/28/24
Vital Signs / Lab Results
Temp Pulse Resp BP Pulse Ox
98 F 75 18 144/71 91
09/28/24 23:00 09/28/24 23:00 09/28/24 23:00 09/28/24 23:00 09/28/24 23:00
He is 6 foot, weight 140.4 kg, BMI 42.0 kg/meters square, temperature 97.6 �F, pulse 69, respiratory rate 15, BP 145/73 and pulse ox on room air is 91%. Patient with full range of motion bilateral upper extremities and left lower extremity. Right
hip has edema without ecchymosis. Tenderness localized to the right hip and thigh. Shortening and external rotation noted. Logroll elicits pain in the right hip region. Distal neurovascular was grossly intact.
09/28/24 13:30
09/28/24 13:30
X-rays of the right hip show comminuted intertrochanteric fracture with extension into subtrochanteric region along with displacement.
Assessment / Plan
Right hip comminuted/displaced intertrochanteric fracture
Patient unfortunately has sustained right hip comminuted/displaced intertrochanteric fracture which is going to require surgical stabilization with gamma nail after Eliquis washout. Surgery has been tentatively scheduled for October 01, 2024 with
[facility]. It appears as though medicine and cardiology has cleared the patient. Anticoagulants will be held and mechanical devices used for DVT prophylactics. He will be n.p.o. for October 01, 2024. Ancef on-call to operating room. Type and screen has
been ordered. Surgery, postoperative course along with risk and potential complications were discussed with both patient and son. All questions were answered and they are agreeable to surgical intervention and blood if necessary.
[2024-09-29 08:14] LABS: Glucose - Point of Care 113 mg/dl (70-99)
[2024-09-29] MEDS: NOVOLOG FLEXPEN-LOW RESISTANCE SC ×3 (08:45→17:33)
[2024-09-29 08:50] LABS: Glycohemoglobin (HgbA1c) 6.4 % (4.0-5.6)
[2024-09-29] MEDS: VITAMIN D3 (cholecalciferol) 125 MCG PO (09:05)
[2024-09-29] MEDS: CELEXA 10 MG PO (09:06)
[2024-09-29] MEDS: PROTONIX 40 MG PO (09:06)
[2024-09-29] MEDS: ACTOS 30 MG PO (09:06)
[2024-09-29] MEDS: NORVASC 10 MG PO (09:06)
[2024-09-29] MEDS: LOPRESSOR 50 MG PO ×2 (09:06→20:47)
--- NOTE | 2024-09-29 09:07 | CM ---
CM reviewed medical records. CM spoke with patient in room. Of note, patient is Argentine speaking, but able to communicate. Patient denied VN, SNF. Patient does have a CPAP from [facility]. Patient stated that he stays primarily upstairs and rarely
gets out of bed. Patient stated that his son or grandson helps him down the stairs if needed. Patient lives with his .
Patient stated that he is active with his PCP. Patient does have medication coverage.
PLAN: SNF s/p OR.
--- NOTE | 2024-09-29 10:33 | W.PN.HOSP.TC ---
Today's Communication/Plan
-
Continue pain regimen DVT prophylaxis
Continue with IV diuresis per cardiology
Monitor on telemetry
Assessment / Plan
Assessment / Plan
Mechanical fall leading onto right intertrochanteric fracture
-Ortho plan for surgical repair for October 01 noted.
- DVT prophylaxis with Lovenox till surgery.
- Continue with current pain regimen.
Acute heart failure and midrange EF.
Patient on presentation admitted with progressive lower extremity edema and exertional shortness of breath. Clinically Was concerning for heart failure. BNP was elevated. Obtained a chest x-ray today which showed cardiomegaly with mildly
increased pulmonary vascularity suggesting mild CHF versus acute pulmonary edema.
Echo from 09/08/2024 showed EF of 45 to 50%.
Initiated on IV diuresis. Appreciate cardiology consultation.
CAD s/p PCI and coronary stents bare-metal 07/2014. Patient without angina. EKG with incomplete right bundle branch block and nonspecific T abnormalities in the inferior leads/anterior lateral leads. Check troponin baseline.
Persistent atrial fibrillation-rate controlled. On Eliquis which is on hold for procedure.
Essential hypertension-continue the home medication
Diabetes mellitus type 2-on Trulicity and pioglitazone. Start on sliding scale insulin. Check hemoglobin A1c.
Full code
Total time spent on today's encounter was 52 minutes which included time spent in counseling the patient/family regarding diagnosis and treatment plan as listed above, goals of care, and symptom management. Case was discussed with nursing staff,
specialists, and care coordinators/case management. All labs and imaging personally reviewed by me. Remainder the time spent in detailed review of previous records, lab data, imaging, and other medical provider documentation.
Anticipated Discharge: > 48 hours
Subjective/Interval History
-
Date of Service: September 29, 2024
Patient speaks limited Polish but understands Polish.
He is denying any shortness of breath. He was lying flat without shortness of breath; lying flat is preferential position due to right hip fracture.
Denies chest pain.
No nausea vomiting.
Objective Data
-
Vital Signs:
Vital Signs
Temp Pulse Resp BP Pulse Ox
98.4 F 74 16 151/73 93
09/29/24 07:15 09/29/24 07:15 09/29/24 07:15 09/29/24 07:15 09/29/24 07:15
I&O
09/28/24 09/29/24 09/30/24
06:59 06:59 06:59
Output Total 2625 / 2625
Balance -2625 / -2625
Review of Systems
-
Unable to obtain full review of systems at this time due to: Language Barrier
Physical Exam
-
Respiratory: Clear to Auscultation (On anterior auscultation. Difficult to examine because of right hip fracture.) and Non Labored Respirations; Negative Accessory Resp Muscle Use
Cardiac: S1/S2 and Irregular Rhythm; Negative Tachycardic
GI: Soft and Other (obese)
Neuro: Awake, Alert and Oriented
Psych: Calm
Data Reviewed
-
Labs: Labs Reviewed by me
--- NOTE | 2024-09-29 10:36 | W.PN.CARDCBS ---
Today's Communication / Plan
-
He has right hip comminuted/displaced intertrochanteric fracture and is gettingEliquis washout.
Surgery has been tentatively scheduled for October 01, [address] Dubose.
Cont IV diuresis but await labs this AM, ordered AM September 29.
IF cr stable with give additional lasix 40 mg IV daily today as his Is and Os are negative ove 2L last 24 hrs
pBNP was elevated on presentation
Wt coming down
Recent outside echo with stable EF. Cont Toprol.
Records from his primary pre sales technical engineer have been reviewed:
Lexiscan nuclear stress test from August 2024 with fixed defect but no evidence of ischemia
Echo also from August 2024 with moderate MR and mildly reduced LV systolic function
No need to repeat the above testing
Cont Eliquis washout
HR controlled.
He remains compensated for OR October 01
Impression / Plan
-
.
PCP: Dr. Lu Lopez
Card: Dr. Leigh Ann Daniels at [place]
Impression:
Admitted with mechanical fall and hip fracture 09/28/2024
Acute HFmrEF
EF 45 to 50% by echo 09/08/2024
CAD status post BMS x 2 unknown vessels 07/2014
Persistent A-fib
Chronic Eliquis OAC
Hyperlipidemia
DM 2
Moderate MR by echo 09/08/2024
ZIO monitor 09/08/2024: Continuous atrial fibrillation with 100% burden
Lexiscan nuclear stress test 09/08/2024: EF 54%, medium sized moderate defect in the anterior wall that is fixed
Echo 09/08/2024: [facility], EF 45 to 50%, moderate concentric LVH, mild to moderate TR, mild PHTN with PAP 40 mmHg, moderate MR, mild aortic regurgitation
Plan:
He has right hip comminuted/displaced intertrochanteric fracture and is gettingEliquis washout.
Surgery has been tentatively scheduled for October 01, [address] Dubose.
Cont IV diuresis but await labs this AM, ordered AM September 29.
IF cr stable with give additional lasix 40 mg IV daily today as his Is and Os are negative ove 2L last 24 hrs
pBNP was elevated on presentation
Wt coming down
Recent outside echo with stable EF. Cont Toprol.
Records from his primary pre sales technical engineer have been reviewed:
Lexiscan nuclear stress test from August 2024 with fixed defect but no evidence of ischemia
Echo also from August 2024 with moderate MR and mildly reduced LV systolic function
No need to repeat the above testing
Cont Eliquis washout
HR controlled.
He remains compensated for OR October 01
HPI: Patient came to [facility] ER today after a mechanical fall at home and is being admitted with hip fracture cardiology is consulted for preoperative cardiovascular evaluation and concern for possible acute heart failure. Patient is 79 and lives at
home with his family, he does not speak Cambodian but multiple family members are present to help with translation. Patient slipped and fell with his slippers on the stairs outside of their home today and fell and had immediate pain and broke his
hip. Patient was brought to [facility], but generally follows with Dr. Daniels down at [place].
Patient has a history of abnormal stress test leading to cardiac catheterization and bare-metal stenting of unknown vessels x 2 07/2014. He last saw Dr. Daniels in the office on 08/25/2024 and complained of TEMPLE for months and increased LE edema.
Patient was found to be in newly diagnosed paroxysmal atrial fibrillation at that visit and was started on Eliquis 5 mg twice daily. He also had a monitor placed and as noted above had a 100% atrial fibrillation burden. He also had an echo that
showed moderately reduced EF at 45 to 50%. Patient is not chronically on a diuretic.
.
Progress Note - Bung Remover
Subjective
Date of Service: September 29, 2024
Pt seen and examined. No cp or dyspne.
Objective
Labs:
09/28/24 13:30
09/28/24 13:30
Labs
Hgb 11.8 g/dL (13.0-18.0) L 09/28/24 13:30
Hct 35.8 % (39.0-52.0) L 09/28/24 13:30
Plt Count 148 10^3/uL (130-400) 09/28/24 13:30
PT 17.0 Sec (11.4-14.6) H 09/28/24 13:30
INR 1.35 09/28/24 13:30
APTT 34.9 Sec (23.4-35.0) 09/28/24 13:30
Sodium 142 mmol/L (135-145) 09/28/24 13:30
Potassium 3.9 mmol/L (3.5-5.1) 09/28/24 13:30
BUN 19 mg/dl (9-20) 09/28/24 13:30
Creatinine 0.9 mg/dL (0.7-1.3) 09/28/24 13:30
Glucose 195 mg/dl (70-99) H 09/28/24 13:30
Vital Signs and I&O:
Vital Signs
Temp Pulse Resp BP Pulse Ox
98.4 F 74 16 151/73 93
09/29/24 07:15 09/29/24 07:15 09/29/24 07:15 09/29/24 07:15 09/29/24 07:15
Vital Signs
Temp Pulse Resp BP Pulse Ox
98.4 F 74 16 151/73 93
09/29/24 07:15 09/29/24 07:15 09/29/24 07:15 09/29/24 07:15 09/29/24 07:15
Intake & Output
09/27/24 09/28/24 09/29/24 09/30/24
06:59 06:59 06:59 06:59
Output Total 2625 / 2625
Balance -2625 / -2625
Physical Exam
Physical Exam
General: No acute distress, AAOX3
Neck: Negative JVD
Heart: Irregularly irregular, Negative S3 positive S1/S2, Negative S4, No murmur
Lungs: CTA b/l, negative wheezes/rales/rhonchi
Abd: Positive BS, NT/ND, neg rebound/rigidity/guarding
Ext: Negative cyanosis/clubbing/edema
Neuro: nonfocal
--- NOTE | 2024-09-29 10:42 | PN.CDI ---
CDI
- -
CDI:
Physician Documentation Request
Admit Date: 09/28/24 15:46
Dear Doctor Mikhail,
Clinical Indicators:
Height: 6 ft
Weight: 309 lbs 8.4 oz
BMI:
09/29/24
06:00
Body Mass Index (BMI) 42.0
09/29 note, 'BMI: 42.0 (obese)'
If possible, please provide an associated diagnosis related to the abnormal BMI ( > or = to 40), such as:
Obesity
Morbid obesity
BMI is not significant
Other, please specify
Use of terms such as suspected, likely, concern for, or probable (associated with a specific diagnosis that is being evaluated, monitored, or treated as if it exists) are acceptable and can be coded in the inpatient setting, when documented at the
time of discharge.
Thank you,
ARCELIA Sanford RN
CDI Specialist
available via tiger text
Please use your independent medical judgment in providing your response.
[2024-09-29 11:30] LABS: Blood Urea Nitrogen 18 mg/dl (9-20); Calcium 9.4 mg/dl (8.4-10.2); Carbon Dioxide 29 mmol/L (22-30); Chloride 103 mmol/L (98-107); Estimated Creatinine Clearance 98 ml/min; Glucose 136 mg/dl (70-99); Potassium 3.9 mmol/L (3.5-5.1); Sodium 139 mmol/L (135-145); eGFR > 60.00
[2024-09-29 11:45] LABS: Glucose - Point of Care 141 mg/dl (70-99)
[2024-09-29 11:58] VITALS: BP 153/67
[2024-09-29] MEDS: ROXICODONE 5 MG PO ×2 (12:57→22:29)
[2024-09-29] MEDS: LASIX 40 MG IV (14:26)
[2024-09-29] MEDS: DILAUDID 0.5 MG IV ×2 (15:09→20:53)
[2024-09-29 15:15] VITALS: BP 153/75
[2024-09-29 17:13] LABS: Glucose - Point of Care 137 mg/dl (70-99)
[2024-09-29 19:20] VITALS: BP 154/67
[2024-09-29] MEDS: FLOMAX 0.8 MG PO (20:48)
[2024-09-29] MEDS: LIPITOR 40 MG PO (20:49)
[2024-09-29] MEDS: TYLENOL 650 MG PO (20:53)
[2024-09-29] MEDS: FLUSH (NSS) 2 FLUSH IV (20:53)
[2024-09-29 21:53] LABS: Glucose - Point of Care 142 mg/dl (70-99)
[2024-09-29 23:05] VITALS: BP 143/63
[2024-09-30] MEDS: FLUSH (NSS) 2 FLUSH IV ×2 (02:04→21:51)
[2024-09-30] MEDS: DILAUDID 0.5 MG IV ×3 (02:05→21:50)
[2024-09-30 03:05] VITALS: BP 147/81
[2024-09-30 06:00] VITALS: BMI 41.2
--- NOTE | 2024-09-30 06:52 | W.PN.UPDATE ---
Update Note
Progress Note Update
Patient on schedule for open treatment right intertrochanteric fracture October 01, [address] Dubose. Presently he is NPO after midnight and Ancef 3 g IV on-call to operating room. H&H in the morning and type and screen has been completed.
[2024-09-30 07:28] VITALS: BP 159/73
[2024-09-30] MEDS: CELEXA 10 MG PO (07:48)
[2024-09-30] MEDS: VITAMIN D3 (cholecalciferol) 125 MCG PO (07:48)
[2024-09-30] MEDS: ACTOS 30 MG PO (07:48)
[2024-09-30] MEDS: LOPRESSOR 50 MG PO ×2 (07:48→21:46)
[2024-09-30] MEDS: PROTONIX 40 MG PO (07:49)
[2024-09-30] MEDS: NORVASC 10 MG PO (07:49)
[2024-09-30 07:50] LABS: Glucose - Point of Care 139 mg/dl (70-99)
[2024-09-30] MEDS: NOVOLOG FLEXPEN-LOW RESISTANCE SC (07:50)
[2024-09-30] MEDS: LASIX 40 MG IV (07:50)
--- NOTE | 2024-09-30 09:33 | CM ---
Addendum entered by Viji Dexter RN 10/01/24 13:42:
RADHA reviewed medical records. Patient for OR today. Pending PT recommendations post operatively.
PLAN: SNF
Original Note:
Radha reviewed medical records. Patient for OR on 10/01. Cm will continue to follow for post-operative need.
PLAN: SNF pending post operative course and PT recommendations.
[2024-09-30] MEDS: ROXICODONE 5 MG PO ×3 (10:33→23:21)
--- NOTE | 2024-09-30 11:00 | W.PN.HOSP.TC ---
Today's Communication/Plan
-
OR tomorrow
Assessment / Plan
Assessment / Plan
Mechanical fall leading onto right intertrochanteric fracture
-Ortho plan for surgical repair for October 01 noted.
- DVT prophylaxis with mechanical device.
- Continue with current pain regimen.
Acute heart failure and midrange EF.
Patient on presentation admitted with progressive lower extremity edema and exertional shortness of breath. Clinically Was concerning for heart failure. BNP was elevated. Obtained a chest x-ray today which showed cardiomegaly with mildly
increased pulmonary vascularity suggesting mild CHF versus acute pulmonary edema.
Echo from 09/08/2024 showed EF of 45 to 50%.
Initiated on IV diuresis. Improved weight. Appreciate cardiology consultation.
CAD s/p PCI and coronary stents bare-metal 07/2014. Patient without angina. EKG with incomplete right bundle branch block and nonspecific T abnormalities in the inferior leads/anterior lateral leads.
Persistent atrial fibrillation-rate controlled. On Eliquis which is on hold for procedure.
Essential hypertension-continue the home medication
Diabetes mellitus type 2-on Trulicity and pioglitazone. Start on sliding scale insulin. hemoglobin A1c 6.4.
Full code
Anticipated Discharge: > 48 hours
Subjective/Interval History
-
Date of Service: September 30, 2024
No overnight events.
Denies shortness of breath.
Objective Data
-
Vital Signs:
Vital Signs
Temp Pulse Resp BP Pulse Ox
98.2 F 79 16 159/73 96
09/30/24 07:28 09/30/24 07:28 09/30/24 07:28 09/30/24 07:28 09/30/24 07:28
I&O
09/29/24 09/30/24 10/01/24
06:59 06:59 06:59
Intake Total 270 / 270
Output Total 2625 / 2625 3375 / 3375
Balance -2625 / -2625 -3105 / -3105
Review of Systems
-
Unable to obtain full review of systems at this time due to: Language Barrier (Speaks limited Japanese)
Cardiac: Denies Chest Pain
Abdomen/GI: Denies Abdominal Pain, Nausea or Vomiting
Neuro: Denies Dizzy (Mostly in bed due to pain from fracture site)
Physical Exam
-
General: Comfortable (While lying in his bed)
Respiratory: Clear to Auscultation (Anteriorly) and Non Labored Respirations; Negative Accessory Resp Muscle Use
Cardiac: S1/S2 and Irregular Rhythm; Negative Tachycardic
GI: Negative Soft
Musculoskeletal: Negative No Edema (Improving bilateral lower extremity edema)
Neuro: Awake, Alert and Oriented
Psych: Calm
--- NOTE | 2024-09-30 11:42 | W.PN.CARDCBS ---
Today's Communication / Plan
-
Cont IV diuresis with lasix 40 mg IV daily.
Is and Os are negative over 5L last 48 hrs
Wt continue to come down
pBNP was elevated on presentation
Check BMP September 30
Recent outside echo with stable EF. Cont Toprol.
Records from his primary rubber tester have been reviewed:
Lexiscan nuclear stress test from August 2024 with fixed defect but no evidence of ischemia
Echo also from August 2024 with moderate MR and mildly reduced LV systolic function
No need to repeat the above testing
Cont Eliquis washout
HR remains controlled.
He remains compensated for OR October 01
Impression / Plan
-
.
PCP: Dr. Lu Lopez
Card: Dr. Leigh Ann Daniels at [place]
Impression:
Admitted with mechanical fall and hip fracture 09/28/2024
Acute HFmrEF
EF 45 to 50% by echo 09/08/2024
CAD status post BMS x 2 unknown vessels 07/2014
Persistent A-fib
Chronic Eliquis OAC
Hyperlipidemia
DM 2
Moderate MR by echo 09/08/2024
ZIO monitor 09/08/2024: Continuous atrial fibrillation with 100% burden
Lexiscan nuclear stress test 09/08/2024: EF 54%, medium sized moderate defect in the anterior wall that is fixed
Echo 09/08/2024: [facility], EF 45 to 50%, moderate concentric LVH, mild to moderate TR, mild PHTN with PAP 40 mmHg, moderate MR, mild aortic regurgitation
Plan:
He has right hip comminuted/displaced intertrochanteric fracture and is gettingEliquis washout.
Surgery has been tentatively scheduled for October 01, [address] Dubose.
Cont IV diuresis with lasix 40 mg IV daily.
Is and Os are negative over 5L last 48 hrs
Wt continue to come down
pBNP was elevated on presentation
Check BMP September 30
Recent outside echo with stable EF. Cont Toprol.
Records from his primary rubber tester have been reviewed:
Lexiscan nuclear stress test from August 2024 with fixed defect but no evidence of ischemia
Echo also from August 2024 with moderate MR and mildly reduced LV systolic function
No need to repeat the above testing
Cont Eliquis washout
HR remains controlled.
He remains compensated for OR October 01
HPI: Patient came to [facility] ER today after a mechanical fall at home and is being admitted with hip fracture cardiology is consulted for preoperative cardiovascular evaluation and concern for possible acute heart failure. Patient is 79 and lives at
home with his family, he does not speak Serbian but multiple family members are present to help with translation. Patient slipped and fell with his slippers on the stairs outside of their home today and fell and had immediate pain and broke his
hip. Patient was brought to [facility], but generally follows with [facility] [place].
Patient has a history of abnormal stress test leading to cardiac catheterization and bare-metal stenting of unknown vessels x 2 07/2014. He last saw Dr. Daniels in the office on 08/25/2024 and complained of TEMPLE for months and increased LE edema.
Patient was found to be in newly diagnosed paroxysmal atrial fibrillation at that visit and was started on Eliquis 5 mg twice daily. He also had a monitor placed and as noted above had a 100% atrial fibrillation burden. He also had an echo that
showed moderately reduced EF at 45 to 50%. Patient is not chronically on a diuretic.
.
Progress Note - Manager Leadership Development
Subjective
Date of Service: September 30, 2024
Pt seen and examined. No complaints. No chest pain or shortness of breath.
Objective
Labs:
09/28/24 13:30
09/29/24 10:45
Labs
Hgb 11.8 g/dL (13.0-18.0) L 09/28/24 13:30
Hct 35.8 % (39.0-52.0) L 09/28/24 13:30
Plt Count 148 10^3/uL (130-400) 09/28/24 13:30
PT 17.0 Sec (11.4-14.6) H 09/28/24 13:30
INR 1.35 09/28/24 13:30
APTT 34.9 Sec (23.4-35.0) 09/28/24 13:30
Sodium Cancelled 09/29/24 10:45
Potassium Cancelled 09/29/24 10:45
BUN Cancelled 09/29/24 10:45
Creatinine Cancelled 09/29/24 10:45
Glucose Cancelled 09/29/24 10:45
Vital Signs and I&O:
Vital Signs
Temp Pulse Resp BP Pulse Ox
98.2 F 79 16 159/73 96
09/30/24 07:28 09/30/24 07:28 09/30/24 07:28 09/30/24 07:28 09/30/24 07:28
Vital Signs
Temp Pulse Resp BP Pulse Ox
98.2 F 79 16 159/73 96
09/30/24 07:28 09/30/24 07:28 09/30/24 07:28 09/30/24 07:28 09/30/24 07:28
Intake & Output
09/28/24 09/29/24 09/30/24 10/01/24
06:59 06:59 06:59 06:59
Intake Total 270 / 270
Output Total 2625 / 2625 3375 / 3375 650 / 650
Balance -2625 / -2625 -3105 / -3105 -650 / -650
Physical Exam
Physical Exam
General: No acute distress, AAOX3
Neck: Negative JVD
Heart: irregularly irregular, Negative S3 positive S1/S2, Negative S4, No murmur
Lungs: CTA b/l, negative wheezes/rales/rhonchi
Abd: Positive BS, NT/ND, neg rebound/rigidity/guarding
Ext: Negative cyanosis/clubbing/edema
Neuro: nonfocal
[2024-09-30 12:03] LABS: Glucose - Point of Care 165 mg/dl (70-99)
[2024-09-30] MEDS: NOVOLOG FLEXPEN-LOW RESISTANCE 1 UNITS SC ×2 (12:50→17:24)
[2024-09-30 13:46] LABS: Blood Urea Nitrogen 25 mg/dl (9-20); Calcium 9.4 mg/dl (8.4-10.2); Carbon Dioxide 28 mmol/L (22-30); Chloride 100 mmol/L (98-107); Estimated Creatinine Clearance 80 ml/min; Glucose 155 mg/dl (70-99); Potassium 3.6 mmol/L (3.5-5.1); Sodium 138 mmol/L (135-145); eGFR > 60.00
[2024-09-30 15:10] VITALS: BP 165/70
[2024-09-30 17:19] LABS: Glucose - Point of Care 199 mg/dl (70-99)
[2024-09-30] MEDS: SENOKOT-S 1 TABLET PO (17:24)
[2024-09-30 18:36] LABS: Hepatitis C Antibody Negative (Negative)
[2024-09-30 19:20] VITALS: BP 121/76
[2024-09-30 21:41] LABS: Glucose - Point of Care 190 mg/dl (70-99)
[2024-09-30] MEDS: LIPITOR 40 MG PO (21:46)
[2024-09-30] MEDS: FLOMAX 0.8 MG PO (21:46)
[2024-09-30 23:18] VITALS: BP 176/87
[2024-09-30] MEDS: TYLENOL 650 MG PO (23:21)
[2024-10-01] VITALS (13 sets, daily range): BP systolic 112–166; BP diastolic 59–84; BMI 41.0
[2024-10-01] MEDS: TYLENOL 650 MG PO (03:32)
[2024-10-01] MEDS: ROXICODONE 5 MG PO ×3 (03:32→22:03)
[2024-10-01] MEDS: DILAUDID 0.5 MG IV ×2 (05:05→20:18)
[2024-10-01] MEDS: FLUSH (NSS) 2 FLUSH IV (05:06)
[2024-10-01 07:08] LABS: Glucose - Point of Care 158 mg/dl (70-99)
[2024-10-01] MEDS: NOVOLOG FLEXPEN-LOW RESISTANCE SC ×2 (07:18→15:04)
[2024-10-01 08:10] LABS: Hematocrit 35.7 % (39.0-52.0); Hemoglobin 11.7 g/dL (13.0-18.0); Mean Corp Hgb Conc. 32.8 g/dL (33.0-37.0); Mean Corpuscular Hgb 27.2 pg (27.0-31.0); Mean Platelet Volume 10.3 fL (7.4-10.4); Platelet Count 155 10^3/uL (130-400); White Blood Cell Count 10.5 10^3/uL (4.8-10.8)
[2024-10-01] MEDS: LOPRESSOR 50 MG PO ×2 (08:20→20:08)
[2024-10-01] MEDS: NOVOLOG FLEXPEN-LOW RESISTANCE 1 UNITS SC (08:20)
[2024-10-01] MEDS: ACTOS 30 MG PO (08:20)
[2024-10-01] MEDS: PROTONIX 40 MG PO (08:20)
[2024-10-01] MEDS: CELEXA 10 MG PO (08:21)
[2024-10-01] MEDS: LASIX 40 MG IV (08:21)
[2024-10-01] MEDS: NORVASC 10 MG PO (08:21)
[2024-10-01] MEDS: VITAMIN D3 (cholecalciferol) 125 MCG PO (08:21)
[2024-10-01] MEDS: SENOKOT-S 1 TABLET PO (08:26)
[2024-10-01 09:09] LABS: Blood Urea Nitrogen 30 mg/dl (9-20); Carbon Dioxide 28 mmol/L (22-30); Chloride 101 mmol/L (98-107); Estimated Creatinine Clearance 87 ml/min; Glucose 168 mg/dl (70-99); Potassium 3.5 mmol/L (3.5-5.1); Sodium 137 mmol/L (135-145); eGFR > 60.00
[2024-10-01 12:22] LABS: Glucose - Point of Care 183 mg/dl (70-99)
[2024-10-01 14:26] LABS: Glucose - Point of Care 215 mg/dl (70-99)
[2024-10-01] MEDS: DILAUDID 0.25 MG IV (14:28)
--- NOTE | 2024-10-01 15:33 | PTCARENOTE ---
Pt returned to 2S in bed. Pt drowsy, but easily arouses to verbal stimulu, sleeping between care. RLE primaseals x3 with a small amount of drainage noted. Telemetry reapplied. IVF discontinued per Dr Vasquez. RLE with decreased movement, and pulses
weak to palpation. Neurovascular assessment otherwise WDL. Nasal cannula maintained. Bed locked and in the lowest position, safety maintained. Oriented to room and call pop, family at bedside.
--- NOTE | 2024-10-01 15:40 | W.PN.HOSP.TC ---
Today's Communication/Plan
-
Postoperative care
DC IV fluids
Trulicity tomorrow
Assessment / Plan
Assessment / Plan
79-year-old with a fall
CVS: S1-S2 irregular
Chest: CTA B/L
Abdomen: Soft, NT / Bowel sounds present
Extremities: right hip surgical dressing
COAT FITTER: Non focal exam
# Mechanical fall leading to right intertrochanteric fracture
Status post OR today October 01
Pain management
# Acute heart failure with midrange ejection fraction
Presented with progressive lower extremity edema and shortness of breath
Chest x-ray with cardiomegaly and pulmonary vascularity increased
Echo 09/08/2024-showed ejection fraction 45 to 50%
Continue IV diuresis
Cardiology following
# Coronary disease with history of stents July 2014
[facility] nuclear scan from August 2024 with fixed defect no evidence of ischemia
EKG incomplete RBBB and nonspecific ST-T changes
# Hyperlipidemia-continue atorvastatin
# Hypertension
On Norvasc as outpatient-Hold
Continue metoprolol
# Persistent atrial fibrillation-Eliquis restarted per orthopedics
Continue metoprolol
# Diabetes type 2-hemoglobin A1c 6.4
On Trulicity 4.5 mg subcutaneous on Wednesdays and and pioglitazone 30 mg as outpatient. He did not get it dispense [place]. Advised to bring it so he can start taking it tomorrow
Accu-Cheks and sliding scale coverage
# Anxiety/Depression-continue Celexa
# Prostate disease-continue Flomax. Watch for retention postsurgery
# Sleep apnea-continue CPAP
# Obesity with a BMI of 41
# DVT prophylaxis-Eliquis restarted
# Full code
Discussed with nursing at bedside
Discussed with family at bedside
Part of this note was created using voice recognition system. Occasional wrong word or��sound alike� substitutions may have inadvertently occurred due to the inherent limitations of voice recognition software. If noted kindly bring it to my
attention for correction.
Anticipated Discharge: 24 - 48 hours
Subjective/Interval History
-
Date of Service: October 01, 2024
Objective Data
-
Labs:
Laboratory Results
10/01/24
07:41
WBC 10.5
Hgb 11.7 L
Hct 35.7 L
Plt Count 155
Sodium 137
Potassium 3.5
Chloride 101
Carbon Dioxide 28
BUN 30 H
Creatinine 1.0
Glucose 168 H
Calcium 9.0
Vital Signs:
Vital Signs
Temp Pulse Resp BP Pulse Ox
97.7 F 79 15 131/68 100
10/01/24 15:25 10/01/24 15:25 10/01/24 15:25 10/01/24 15:25 10/01/24 15:25
I&O
09/30/24 10/01/24 10/02/24
06:59 06:59 06:59
Intake Total 270 / 270 120 / 120 75 / 75
Output Total 3375 / 3375 650 / 650 1150 / 1150
Balance -3105 / -3105 -530 / -530 -1075 / -1075
--- NOTE | 2024-10-01 16:02 | W.PN.CARDCBS ---
Today's Communication / Plan
-
Changed to Lasix 40 mg daily and sign off
Impression / Plan
-
PCP: Dr. Lu Lopez
Card: Dr. Leigh Ann Daniels at [place]
Impression:
Admitted with mechanical fall and hip fracture 09/28/2024
Acute HFmrEF
EF 45 to 50% by echo 09/08/2024
CAD status post BMS x 2 unknown vessels 07/2014
Persistent A-fib
Chronic Eliquis OAC
Hyperlipidemia
DM 2
Moderate MR by echo 09/08/2024
ZIO monitor 09/08/2024: Continuous atrial fibrillation with 100% burden
Lexiscan nuclear stress test 09/08/2024: EF 54%, medium sized moderate defect in the anterior wall that is fixed
Echo 09/08/2024: [facility], EF 45 to 50%, moderate concentric LVH, mild to moderate TR, mild PHTN with PAP 40 mmHg, moderate MR, mild aortic regurgitation
Plan:
Seen immediately postop.
Appears stable from cardiology viewpoint
BUN has increased and likely euvolemic
Will change to p.o. Lasix 40 mg daily
Resume Eliquis when okay with orthopedics
Discussed with patient's family in room
Will sign off, call with questions
Patient can follow-up with outpatient radio machinist at [place]
HPI: Patient came to [facility] ER today after a mechanical fall at home and is being admitted with hip fracture cardiology is consulted for preoperative cardiovascular evaluation and concern for possible acute heart failure. Patient is 79 and lives at
home with his family, he does not speak Nigerian but multiple family members are present to help with translation. Patient slipped and fell with his slippers on the stairs outside of their home today and fell and had immediate pain and broke his
hip. Patient was brought to [facility], but generally follows with Dr. Frances reid at [place].
Patient has a history of abnormal stress test leading to cardiac catheterization and bare-metal stenting of unknown vessels x 2 07/2014. He last saw Dr. Daniels in the office on 08/25/2024 and complained of TEMPLE for months and increased LE edema.
Patient was found to be in newly diagnosed paroxysmal atrial fibrillation at that visit and was started on Eliquis 5 mg twice daily. He also had a monitor placed and as noted above had a 100% atrial fibrillation burden. He also had an echo that
showed moderately reduced EF at 45 to 50%. Patient is not chronically on a diuretic.
.
Progress Note - Technical Account Manager
Subjective
Date of Service: October 01, 2024
Patient seen immediately postop. Sedated at present.
Objective
Labs:
10/01/24 07:41
10/01/24 07:41
Labs
Hgb 11.7 g/dL (13.0-18.0) L 10/01/24 07:41
Hct 35.7 % (39.0-52.0) L 10/01/24 07:41
Plt Count 155 10^3/uL (130-400) 10/01/24 07:41
PT 17.0 Sec (11.4-14.6) H 09/28/24 13:30
INR 1.35 09/28/24 13:30
APTT 34.9 Sec (23.4-35.0) 09/28/24 13:30
Sodium 137 mmol/L (135-145) 10/01/24 07:41
Potassium 3.5 mmol/L (3.5-5.1) 10/01/24 07:41
BUN 30 mg/dl (9-20) H 10/01/24 07:41
Creatinine 1.0 mg/dL (0.7-1.3) 10/01/24 07:41
Glucose 168 mg/dl (70-99) H 10/01/24 07:41
Vital Signs and I&O:
Vital Signs
Temp Pulse Resp BP Pulse Ox
97.7 F 79 15 131/68 100
10/01/24 15:25 10/01/24 15:25 10/01/24 15:25 10/01/24 15:25 10/01/24 15:25
Vital Signs
Temp Pulse Resp BP Pulse Ox
97.7 F 79 15 131/68 100
10/01/24 15:25 10/01/24 15:25 10/01/24 15:25 10/01/24 15:25 10/01/24 15:25
Intake & Output
09/29/24 09/30/24 10/01/24 10/02/24
06:59 06:59 06:59 06:59
Intake Total 270 / 270 120 / 120 75 / 75
Output Total 2625 / 2625 3375 / 3375 650 / 650 1150 / 1150
Balance -2625 / -2625 -3105 / -3105 -530 / -530 -1075 / -1075
Physical Exam
Physical Exam
General: Sedate at present
Neck: Supple, no JVD, HJR, carotids +2 B/L, no bruits bilaterally.
Heart: Non displaced PMI, RRR, no murmurs, No S3, S4, no rubs.
Lungs: Poor effort
Extremities: No clubbing, cyanosis or edema bilaterally.
Neuro: Sedate at present
[2024-10-01 16:58] LABS: Glucose - Point of Care 229 mg/dl (70-99)
[2024-10-01] MEDS: NOVOLOG FLEXPEN-LOW RESISTANCE 2 UNITS SC (18:16)
[2024-10-01] MEDS: MIRALAX 17 GRAMS PO (18:24)
[2024-10-01] MEDS: COLACE 100 MG PO (20:07)
[2024-10-01] MEDS: ELIQUIS 2.5 MG PO (20:07)
[2024-10-01] MEDS: ANCEF 5 IV (20:07)
[2024-10-01] MEDS: SENOKOT 17.2 MG PO (20:08)
[2024-10-01] MEDS: LIPITOR 40 MG PO (21:46)
[2024-10-01] MEDS: FLOMAX 0.8 MG PO (21:47)
[2024-10-01 21:48] LABS: Glucose - Point of Care 258 mg/dl (70-99)
[2024-10-02] VITALS (7 sets, daily range): BP systolic 131–160; BP diastolic 67–114; BMI 41.3
[2024-10-02] MEDS: DILAUDID 1 MG IV (00:14)
--- NOTE | 2024-10-02 00:33 | PTCARENOTE ---
Pt pain does not seem to be controlled with PRN medications and ice, reached out [employer] for 1X order of Dilaudid. Pt has multiple orders for severe pain same medications but different hours. Asssited @ this time with repositioning and CPAP placement
from RT.Call pop within reach
[2024-10-02] MEDS: ROXICODONE 10 MG PO ×3 (02:27→16:04)
[2024-10-02] MEDS: ANCEF 5 IV (05:26)
[2024-10-02 06:10] LABS: Hematocrit 33.4 % (39.0-52.0)
[2024-10-02 06:33] LABS: Blood Urea Nitrogen 45 mg/dl (9-20); Calcium 8.9 mg/dl (8.4-10.2); Carbon Dioxide 27 mmol/L (22-30); Chloride 98 mmol/L (98-107); Estimated Creatinine Clearance 63 ml/min; Glucose 184 mg/dl (70-99); Potassium 3.7 mmol/L (3.5-5.1); Sodium 135 mmol/L (135-145); eGFR 51.45
[2024-10-02 07:12] LABS: Glucose - Point of Care 184 mg/dl (70-99)
[2024-10-02] MEDS: PROTONIX 40 MG PO (09:00)
[2024-10-02] MEDS: ACTOS 30 MG PO (09:00)
[2024-10-02 09:02] LABS: Glucose - Point of Care 184 mg/dl (70-99)
[2024-10-02] MEDS: LOPRESSOR 50 MG PO ×2 (09:06→21:02)
[2024-10-02] MEDS: VITAMIN D3 (cholecalciferol) 125 MCG PO (09:06)
[2024-10-02] MEDS: CELEXA 10 MG PO (09:06)
[2024-10-02] MEDS: COLACE 100 MG PO ×2 (09:06→21:02)
[2024-10-02] MEDS: LASIX 40 MG PO (09:07)
[2024-10-02] MEDS: ELIQUIS 2.5 MG PO ×2 (09:07→21:02)
[2024-10-02] MEDS: SENOKOT 17.2 MG PO ×2 (09:07→21:02)
[2024-10-02] MEDS: NOVOLOG FLEXPEN-LOW RESISTANCE 1 UNITS SC (09:07)
--- NOTE | 2024-10-02 11:42 | W.PN.HOSP.TC ---
Today's Communication/Plan
-
Lasix to p.o.
Check bladder scan
Continue to follow creatinine
Bilateral shoulder x-rays
Assessment / Plan
Assessment / Plan
79-year-old with a fall
# Mechanical fall leading to right intertrochanteric fracture
Status post ORIF October 01
cw Pain management and PT tx
# Acute heart failure with midrange ejection fraction
Presented with progressive lower extremity edema and shortness of breath
Chest x-ray with cardiomegaly and pulmonary vascularity increased
Echo 09/08/2024-showed ejection fraction 45 to 50%
Continue diuresis-switch to p.o. Lasix today
Cardiology following
#SANTIAGO-creatinine bumped to 1.4 suspect probably diuresis related-switch to oral Lasix. Check bladder scan. Continue to follow creatinine.
# Coronary disease with history of stents July 2014
[facility] nuclear scan from August 2024 with fixed defect no evidence of ischemia
EKG incomplete RBBB and nonspecific ST-T changes
# Hyperlipidemia-continue atorvastatin
# Hypertension
On Norvasc as outpatient-Hold
Continue metoprolol
# Persistent atrial fibrillation-Eliquis restarted per orthopedics
Continue metoprolol
# Diabetes type 2-hemoglobin A1c 6.4
On Trulicity 4.5 mg subcutaneous on Wednesdays and and pioglitazone 30 mg as outpatient. . Advised to bring it so he can start taking it here.
Accu-Cheks and sliding scale coverage
# Anxiety/Depression-continue Celexa
# Prostate disease-continue Flomax. Watch for retention postsurgery
# Sleep apnea-continue CPAP
# Obesity with a BMI of 41
# DVT prophylaxis-Eliquis restarted
# Full code
Complains of bilateral shoulder pains. He has decent range of motion's but has discomfort. I suspect this is more because of being on his back for 2 days without mobility. Check plain x-rays of the shoulder.
Discussed with nursing at bedside
Part of this note was created using voice recognition system. Occasional wrong word or��sound alike� substitutions may have inadvertently occurred due to the inherent limitations of voice recognition software. If noted kindly bring it to my
attention for correction.
Anticipated Discharge: 24 - 48 hours
Subjective/Interval History
-
Date of Service: October 02, 2024
Today complains of bilateral shoulder discomfort at the end movement. No neck pain. He did not have it at the time of admission.
Patient has been on his back for 2 days because he could not move because the right hip was painful and he was waiting for Eliquis washout to get his hip repair
Objective Data
-
Labs:
Laboratory Results
10/02/24
05:36
Hgb 11.0 L
Hct 33.4 L
Sodium 135
Potassium 3.7
Chloride 98
Carbon Dioxide 27
BUN 45 H
Creatinine 1.4 H
Glucose 184 H
Calcium 8.9
Vital Signs:
Vital Signs
Temp Pulse Resp BP Pulse Ox
98.0 F 84 18 160/68 93
10/02/24 07:25 10/02/24 07:25 10/02/24 07:25 10/02/24 07:25 10/02/24 07:25
I&O
10/01/24 10/02/24 10/03/24
06:59 06:59 06:59
Intake Total 120 / 120 555 / 555
Output Total 650 / 650 1580 / 1580
Balance -530 / -530 -1025 / -1025
Review of Systems
-
Unable to obtain full review of systems at this time due to: Language Barrier (Limited Portuguese but able to communicate his needs and able to provide history)
Respiratory: Reports Trouble Breathing
Cardiac: Reports Chest Pain
Abdomen/GI: Reports Abdominal Pain, Nausea and Vomiting
Physical Exam
-
General: Comfortable
Respiratory: Non Labored Respirations; Negative Accessory Resp Muscle Use
Cardiac: S1/S2 and Irregular Rhythm; Negative Tachycardic
GI: Soft
Musculoskeletal: Other (Discomfort noted in shoulders with movements in both active and passive attempts)
Psych: Calm
Data Reviewed
-
Labs: Labs Reviewed by me
[2024-10-02 11:57] LABS: Glucose - Point of Care 242 mg/dl (70-99)
[2024-10-02] MEDS: NOVOLOG FLEXPEN-LOW RESISTANCE 2 UNITS SC (12:26)
--- NOTE | 2024-10-02 12:57 | W.PN.ORTHO ---
Today's Communication / Plan
-
POD#1 right hip gamma nail under the direction of Dr. Dubose
--Weight bearing as tolerated to right leg. Ambulate with assistive device
--PT/OT
--Pain medications as needed
--Surgical dressings in place. There is some drainage to the middle dressing. Can reinforce/change as needed.
--Hemoglobin 11 on AM labs. Continue to monitor
--Eliquis at modified dose x3 days, then resume normal dosing
--Case management consult for discharge planning
--We will continue to follow along
Assessment
.
Distal Motor Intact: Yes
Dressing:
there is bloody drainage to the middle dressing. will continue to monitor
Plan
.
Surgery / Date: Right hip gamma nail
DVT Prophylaxis: Other (eliquis)
Activity:
Out of bed.
PT/OT
Subjective
.
.:
Patient resting comfortably in bed. He does report pain to the right leg. He has not been out of bed yet
Vital Signs and Labs
.
Vital Signs and Labs:
Lab Results
10/02/24 05:36
10/02/24 05:36
Temp Pulse Resp BP Pulse Ox
98.2 F 91 18 150/83 92
10/02/24 11:20 10/02/24 11:20 10/02/24 11:20 10/02/24 11:20 10/02/24 11:20
PT 17.0 Sec (11.4-14.6) H 09/28/24 13:30
INR 1.35 09/28/24 13:30
Physical Exam
-
Directed exam of right hip performed. Primaseal dressings in place. There is drainage to the middle dressing. +TTP to lateral hip. thigh is soft and compressible. calf soft and nontender. NVI distally
[2024-10-02] MEDS: DILAUDID 0.5 MG IV ×2 (13:11→21:02)
[2024-10-02 15:38] LABS: Glucose - Point of Care 257 mg/dl (70-99)
[2024-10-02] MEDS: NOVOLOG FLEXPEN-LOW RESISTANCE 3 UNITS SC (16:05)
[2024-10-02] MEDS: MIRALAX 17 GRAMS PO (21:02)
[2024-10-02] MEDS: LIPITOR 40 MG PO (21:04)
[2024-10-02] MEDS: FLOMAX 0.8 MG PO (21:04)
[2024-10-02 22:15] LABS: Glucose - Point of Care 241 mg/dl (70-99)
[2024-10-03] VITALS (8 sets, daily range): BP systolic 130–159; BP diastolic 47–81; PULSE 83; O2SAT 92; BMI 41.9
[2024-10-03] MEDS: ROXICODONE 10 MG PO ×2 (00:35→11:45)
--- NOTE | 2024-10-03 00:48 | PTCARENOTE ---
Pt unable to tolerate his own CPAP for more then a few hours, placed back of 3l of O2 @ this time to maintain sats above 92%
[2024-10-03 06:09] LABS: Hematocrit 29.5 % (39.0-52.0); Hemoglobin 9.8 g/dL (13.0-18.0); Mean Corp Hgb Conc. 33.2 g/dL (33.0-37.0); Mean Corpuscular Hgb 27.7 pg (27.0-31.0); Mean Corpuscular Volume 83.3 fL (80.0-94.0); Mean Platelet Volume 10.6 fL (7.4-10.4); Platelet Count 170 10^3/uL (130-400); Red Blood Cell Count 3.54 10^6/uL (4.70-6.10); Red Cell Dist. Width 15.6 % (11.5-14.5); White Blood Cell Count 10.3 10^3/uL (4.8-10.8)
[2024-10-03 06:46] LABS: Blood Urea Nitrogen 50 mg/dl (9-20); Calcium 8.9 mg/dl (8.4-10.2); Carbon Dioxide 28 mmol/L (22-30); Chloride 96 mmol/L (98-107); Estimated Creatinine Clearance 63 ml/min; Glucose 191 mg/dl (70-99); Sodium 133 mmol/L (135-145); eGFR 51.45
[2024-10-03 07:36] LABS: Glucose - Point of Care 190 mg/dl (70-99)
[2024-10-03] MEDS: NOVOLOG FLEXPEN-LOW RESISTANCE 1 UNITS SC (07:50)
[2024-10-03] MEDS: LASIX 40 MG PO (07:51)
[2024-10-03] MEDS: COLACE 100 MG PO ×2 (07:51→21:44)
[2024-10-03] MEDS: PROTONIX 40 MG PO (07:51)
[2024-10-03] MEDS: ACTOS 30 MG PO (07:52)
[2024-10-03] MEDS: ELIQUIS 2.5 MG PO ×2 (07:52→21:44)
[2024-10-03] MEDS: LOPRESSOR 50 MG PO ×2 (07:52→21:51)
[2024-10-03] MEDS: CELEXA 10 MG PO (07:52)
[2024-10-03] MEDS: VITAMIN D3 (cholecalciferol) 125 MCG PO (07:52)
[2024-10-03] MEDS: SENOKOT 17.2 MG PO ×2 (07:52→21:44)
[2024-10-03] MEDS: DILAUDID 0.5 MG IV (09:20)
[2024-10-03 11:40] LABS: Glucose - Point of Care 267 mg/dl (70-99)
[2024-10-03] MEDS: NOVOLOG FLEXPEN-LOW RESISTANCE 3 UNITS SC ×2 (11:45→17:01)
--- NOTE | 2024-10-03 12:52 | W.PN.HOSP.TC ---
Today's Communication/Plan
-
Continue current treatments
Follow creatinine closely
DC planning
Assessment / Plan
Assessment / Plan
79-year-old with a fall
# Mechanical fall leading to right intertrochanteric fracture
Status post ORIF October 01
cw Pain management and PT tx
# Acute heart failure with midrange ejection fraction
Presented with progressive lower extremity edema and shortness of breath
Chest x-ray with cardiomegaly and pulmonary vascularity increased
Echo 09/08/2024-showed ejection fraction 45 to 50%
Continue diuresis-switched to p.o. Lasix 10/02
Cardiology following
#SANTIAGO-creatinine bumped to 1.4 suspect probably diuresis related.No high residuals on bladder scan. Continue to follow creatinine. If continued rising creatinine hold diuretics.
# Coronary disease with history of stents July 2014
[facility] scan from August 2024 with fixed defect no evidence of ischemia
EKG incomplete RBBB and nonspecific ST-T changes
# Hyperlipidemia-continue atorvastatin
# Hypertension
On Norvasc as outpatient-Hold
Continue metoprolol
# Persistent atrial fibrillation-Eliquis restarted per orthopedics
Continue metoprolol
# Diabetes type 2-hemoglobin A1c 6.4
On Trulicity 4.5 mg subcutaneous on Wednesdays and and pioglitazone 30 mg as outpatient. . Advised to bring it so he can start taking it here.
Accu-Cheks and sliding scale coverage
# Anxiety/Depression-continue Celexa
# Prostate disease-continue Flomax. Watch for retention postsurgery
# Sleep apnea-continue CPAP
# Obesity with a BMI of 41
# DVT prophylaxis-Eliquis restarted
# Full code
#bilateral shoulder pains. He has decent range of motion's but has discomfort. I suspect this is more because of being on his back for 2 days without mobility. neg plain x-rays of the shoulder.
Discussed with nursing at bedside
Part of this note was created using voice recognition system. Occasional wrong word or��sound alike� substitutions may have inadvertently occurred due to the inherent limitations of voice recognition software. If noted kindly bring it to my
attention for correction.
Anticipated Discharge: Within 24 hours
Subjective/Interval History
-
Date of Service: October 03, 2024
Sitting in the chair. Able to move his shoulders better now.
Still complains of pain from the right hip/leg area. It was difficult but was able to be transferred to a chair.
Denies any shortness of breath or chest pain.
No nausea vomiting.
Objective Data
-
Labs:
Laboratory Results
10/03/24
04:04
WBC 10.3
Hgb 9.8 L
Hct 29.5 L
Plt Count 170
Sodium 133 L
Potassium 4.0
Chloride 96 L
Carbon Dioxide 28
BUN 50 H
Creatinine 1.4 H
Glucose 191 H
Calcium 8.9
Vital Signs:
Vital Signs
Temp Pulse Resp BP Pulse Ox
98.4 F 84 17 159/81 94
10/03/24 11:25 10/03/24 11:25 10/03/24 11:25 10/03/24 11:25 10/03/24 11:25
I&O
10/02/24 10/03/24 10/04/24
06:59 06:59 06:59
Intake Total 555 / 555 1560 / 1560
Output Total 1580 / 1580 1200 / 1200
Balance -1025 / -1025 360 / 360
Physical Exam
-
General: Comfortable
Respiratory: Clear to Auscultation and Non Labored Respirations; Negative Accessory Resp Muscle Use
Cardiac: S1/S2 and Irregular Rhythm; Negative Tachycardic
GI: Soft
Neuro: AO x 3
Psych: Calm
Data Reviewed
-
Labs: Labs Reviewed by me
--- NOTE | 2024-10-03 13:26 | W.PN.ORTHO ---
Today's Communication / Plan
-
POD#2 right hip gamma nail under the direction of Dr. Dubose
--Weight bearing as tolerated to right leg. Ambulate with assistive device
--PT/OT
--Pain medications as needed
--Surgical dressings in place. There is some drainage to the proximal and middle dressing. Can reinforce/change as needed.
--Eliquis at modified dose x3 days, then resume normal dosing
--Case management consult for discharge planning
--Follow up outpatient 4 weeks. Honey may be removed at 2 weeks postop at [facility]
--Patient is orthopedically stable postoperatively. We will sign off at this time. Please reach out with any additional questions or concerns.
Assessment
.
Dressing:
Clean, dry and intact.
Plan
.
Surgery / Date: Right hip gamma nail
DVT Prophylaxis: Other (eliquis)
Activity:
Out of bed.
PT/OT
Subjective
.
.:
Patient resting comfortably in chair. He endorses pain to the lateral hip. Nurse reports that the proximal dressing was changed overnight
Vital Signs and Labs
.
Vital Signs and Labs:
Lab Results
10/03/24 04:04
10/03/24 04:04
Temp Pulse Resp BP Pulse Ox
98.4 F 84 17 159/81 94
10/03/24 11:25 10/03/24 11:25 10/03/24 11:25 10/03/24 11:25 10/03/24 11:25
PT 17.0 Sec (11.4-14.6) H 09/28/24 13:30
INR 1.35 09/28/24 13:30
Physical Exam
-
Directed exam of right hip performed. Primaseal dressings in place. There is drainage to the proximal and middle dressing. +TTP to lateral hip. thigh is soft and compressible. calf soft and nontender. NVI distally
[2024-10-03 16:54] LABS: Glucose - Point of Care 263 mg/dl (70-99)
[2024-10-03 21:39] LABS: Glucose - Point of Care 206 mg/dl (70-99)
[2024-10-03] MEDS: FLOMAX 0.8 MG PO (21:44)
[2024-10-03] MEDS: LIPITOR 40 MG PO (21:44)
[2024-10-04] VITALS (7 sets, daily range): BP systolic 140–162; BP diastolic 60–73; PULSE 72; O2SAT 95; BMI 41.7
--- NOTE | 2024-10-04 04:21 | PTCARENOTE ---
Changed drsgs to medial and distal incisions d/t excess drainage. Care ongoing.
[2024-10-04 07:48] LABS: Glucose - Point of Care 202 mg/dl (70-99)
[2024-10-04 08:04] LABS: Hematocrit 27.7 % (39.0-52.0)
[2024-10-04] MEDS: NOVOLOG FLEXPEN-LOW RESISTANCE 2 UNITS SC ×3 (08:23→17:37)
[2024-10-04 08:33] LABS: Blood Urea Nitrogen 43 mg/dl (9-20); Carbon Dioxide 31 mmol/L (22-30); Chloride 97 mmol/L (98-107); Estimated Creatinine Clearance 73 ml/min; Glucose 183 mg/dl (70-99); Potassium 3.6 mmol/L (3.5-5.1); Sodium 136 mmol/L (135-145); eGFR > 60.00
--- NOTE | 2024-10-04 08:51 | CM ---
CM spoke with patient's son. Patient's son is agreeable to SNF. CM sent referrals to [facility], [facility] and [facility]. CM will await acceptance feedback.
[2024-10-04] MEDS: VITAMIN D3 (cholecalciferol) 125 MCG PO (09:18)
[2024-10-04] MEDS: LOPRESSOR 50 MG PO ×2 (09:18→21:20)
[2024-10-04] MEDS: ELIQUIS 2.5 MG PO (09:18)
[2024-10-04] MEDS: ACTOS 30 MG PO (09:18)
[2024-10-04] MEDS: LASIX 40 MG PO (09:18)
[2024-10-04] MEDS: CELEXA 10 MG PO (09:18)
[2024-10-04] MEDS: COLACE 100 MG PO (09:18)
[2024-10-04] MEDS: PROTONIX 40 MG PO (09:19)
[2024-10-04] MEDS: SENOKOT 17.2 MG PO (09:19)
[2024-10-04 09:20] LABS: Mean Corp Hgb Conc. 32.9 g/dL (33.0-37.0); Mean Corpuscular Hgb 27.7 pg (27.0-31.0); Mean Corpuscular Volume 84.2 fL (80.0-94.0); Platelet Count 176 10^3/uL (130-400); Red Blood Cell Count 3.29 10^6/uL (4.70-6.10); Red Cell Dist. Width 15.9 % (11.5-14.5); White Blood Cell Count 8.3 10^3/uL (4.8-10.8)
[2024-10-04 09:45] LABS: Iron 24 ug/dl (49-181)
[2024-10-04] MEDS: ROXICODONE 10 MG PO (09:53)
[2024-10-04 09:54] LABS: Percent Saturation 10 % (20-50); Total Iron Binding Capacity 234 ug/dl (261-462)
[2024-10-04 12:17] LABS: Glucose - Point of Care 221 mg/dl (70-99)
[2024-10-04 13:57] LABS: Hematocrit 29.3 % (39.0-52.0); Hemoglobin 9.7 g/dL (13.0-18.0); Mean Corp Hgb Conc. 33.1 g/dL (33.0-37.0); Mean Corpuscular Hgb 27.5 pg (27.0-31.0); Mean Platelet Volume 10.8 fL (7.4-10.4); Platelet Count 204 10^3/uL (130-400); Red Blood Cell Count 3.53 10^6/uL (4.70-6.10); White Blood Cell Count 8.6 10^3/uL (4.8-10.8)
[2024-10-04] MEDS: DESENEX/MITRAZOL/ZEASORB 1 APPLIC TOPICAL (14:07)
[2024-10-04] MEDS: FERRLECIT 110 MG IV (14:24)
--- NOTE | 2024-10-04 14:36 | W.PN.HOSP.TC ---
Today's Communication/Plan
-
Medically stable for discharge to rehab
Assessment / Plan
Assessment / Plan
79-year-old with a fall
Seated in a chair
States that he has pain all over. He is not able to completely specify
Says patient has pain in the neck
Awake alert
Cardiovascular system S1-S2 appreciated
Chest clear to auscultation
Bilateral lower extremity mild edema
Right thigh edema noted mild shadowing at the dressing
#Bilateral shoulder pains. He has decent range of motion's but has discomfort. I suspect this is more because of being on his back for 2 days without mobility. neg plain x-rays of the shoulder.
Check x-ray of the cervical spine
Lidocaine patch
# Mechanical fall leading to right intertrochanteric fracture
Status post ORIF October 01
cw Pain management and PT tx
# Anemia secondary to acute blood loss postoperatively
Iron deficiency noted-IV iron ordered
Follow hemoglobin
# Acute heart failure with midrange ejection fraction
Presented with progressive lower extremity edema and shortness of breath
Chest x-ray with cardiomegaly and pulmonary vascularity increased
Echo 09/08/2024-showed ejection fraction 45 to 50%
Continue diuresis-switched to p.o. Lasix 10/02
Cardiology following
# Acute hypoxic respiratory insufficiency-secondary to heart failure and postop. Off oxygen now. IS ordered.
#SANTIAGO-creatinine bumped to 1.4 suspect probably diuresis related.No high residuals on bladder scan. Continue to follow creatinine. Creatinine better
# Coronary disease with history of stents July 2014
[facility] nuclear scan from August 2024 with fixed defect no evidence of ischemia
EKG incomplete RBBB and nonspecific ST-T changes
# Hyperlipidemia-continue atorvastatin
# Hypertension
On Norvasc as outpatient-Hold
Continue metoprolol
# Persistent atrial fibrillation-Eliquis restarted per orthopedics
Continue metoprolol
# Diabetes type 2-hemoglobin A1c 6.4
On Trulicity 4.5 mg subcutaneous on Wednesdays and and pioglitazone 30 mg as outpatient.
I had advised the family to bring in Trulicity but they have not.
Will use NovoLog insulin in the time being
Accu-Cheks and sliding scale coverage
# Anxiety/Depression-continue Celexa
# Prostate disease-continue Flomax.
# Sleep apnea-continue CPAP
# Obesity with a BMI of 41
# DVT prophylaxis-Eliquis restarted
# Full code
Discussed with nursing at bedside
Discussed with family at bedside
Discussed with pharmacy
Advised patient that he needs to be more mobile and out of bed
Part of this note was created using voice recognition system. Occasional wrong word or��sound alike� substitutions may have inadvertently occurred due to the inherent limitations of voice recognition software. If noted kindly bring it to my
attention for correction.
Anticipated Discharge: Within 24 hours
Subjective/Interval History
-
Date of Service: October 04, 2024
Objective Data
-
Labs:
Laboratory Results
10/04/24 10/04/24 10/04/24
06: 08:47 13:51
WBC 8.3 Cancelled 8.6
Hgb 9.0 L Cancelled 9.7 L
Hct 27.7 L Cancelled 29.3 L
Plt Count 176 Cancelled 204
Sodium 136
Potassium 3.6
Chloride 97 L
Carbon Dioxide 31 H
BUN 43 H
Creatinine 1.2
Glucose 183 H
Calcium 9.0
Vital Signs:
Vital Signs
Temp Pulse Resp BP Pulse Ox
98.0 F 78 20 147/66 92
10/04/24 12:07 10/04/24 12:07 10/04/24 12:07 10/04/24 12:07 10/04/24 12:07
I&O
10/03/24 10/04/24 10/05/24
06:59 06:59 06:59
Intake Total 1560 / 1560 780 / 780 110 / 110
Output Total 1200 / 1200 850 / 850
Balance 360 / 360 -70 / -70 110 / 110
[2024-10-04 15:37] LABS: Vitamin B12 249 pg/ml (239-931)
[2024-10-04] MEDS: LIDOCAINE 4% PATCH 2 PATCH TOPICAL (15:39)
--- NOTE | 2024-10-04 15:39 | CM ---
Addendum entered by Viji Dexter RN 10/05/24 10:54:
CM called [employer] to obtain a copy of patient's settings. CM is awaiting fax from [employer].
Addendum entered by Viji Dexter RN 10/05/24 10:11:
CM updated patient's son with berry picker time.
Addendum entered by Viji Dexter RN 10/05/24 08:27:
Plan for transfer to [facility] today.
[place]
Report
[phone]

Addendum entered by Viji Dexter RN 10/04/24 16:07:
Patient has been accepted to [facility] for tomorrow transfer.
Patient's son has been updated and is agreeable to plan. CM updated hospitalist.
Original Note:
CM was updated that patient would be medically ready for discharge 10/05. Family is agreeable to [facility]. Cm updated admission coordinator at to confirm acceptance.
[2024-10-04 15:46] LABS: Glucose - Point of Care 279 mg/dl (70-99)
[2024-10-04] MEDS: NOVOLOG FLEXPEN 5 UNITS SC ×2 (15:47→17:36)
[2024-10-04 17:30] LABS: Glucose - Point of Care 236 mg/dl (70-99)
[2024-10-04 21:05] LABS: Glucose - Point of Care 216 mg/dl (70-99)
[2024-10-04] MEDS: FLOMAX 0.8 MG PO (21:20)
[2024-10-04] MEDS: ELIQUIS 5 MG PO (21:20)
[2024-10-04] MEDS: LIPITOR 40 MG PO (21:20)
[2024-10-04] MEDS: SENOKOT PO (21:21)
[2024-10-04] MEDS: COLACE PO (21:21)
[2024-10-05 06:00] VITALS: BMI 41.0
[2024-10-05] MEDS: TYLENOL 650 MG PO (06:38)
[2024-10-05 07:17] LABS: Glucose - Point of Care 166 mg/dl (70-99)
[2024-10-05 07:48] VITALS: BP 146/62
--- NOTE | 2024-10-05 09:12 | W.PN.HOSP.TC ---
Today's Communication/Plan
-
discharge
Assessment / Plan
Assessment / Plan
79-year-old with a fall
He Cant remember if the patch helped or not. Pain Ok
Awake alert
Cardiovascular system S1-S2 appreciated
Chest clear to auscultation
Bilateral lower extremity mild edema
Right thigh edema noted mild shadowing at the dressing unchanged
#Bilateral shoulder pains. He has decent range of motion's but has discomfort. I suspect this is more because of being on his back for 2 days without mobility. neg plain x-rays of the shoulder.
Check x-ray of the cervical spine
Lidocaine patch
# Mechanical fall leading to right intertrochanteric fracture
Status post ORIF October 01
cw Pain management and PT tx
# Anemia secondary to acute blood loss postoperatively
Iron deficiency noted-IV iron ordered
PO at discharge
CBC in rehab
# Acute heart failure with midrange ejection fraction
Presented with progressive lower extremity edema and shortness of breath
Chest x-ray with cardiomegaly and pulmonary vascularity increased
Echo 09/08/2024-showed ejection fraction 45 to 50%
Continue diuresis-switched to p.o. Lasix 10/02
# Acute hypoxic respiratory insufficiency-secondary to heart failure and postop. Off oxygen now. IS ordered.
#SANTIAGO-creatinine bumped to 1.4 suspect probably diuresis related.No high residuals on bladder scan. Continue to follow creatinine. Creatinine better
# Coronary disease with history of stents July 2014
[facility] scan from August 2024 with fixed defect no evidence of ischemia
EKG incomplete RBBB and nonspecific ST-T changes
# Hyperlipidemia-continue atorvastatin
# Hypertension
On Norvasc as outpatient-Hold- Restart as OP if BP elevated.
Continue metoprolol
# Persistent atrial fibrillation-Eliquis restarted per orthopedics
Continue metoprolol
# Diabetes type 2-hemoglobin A1c 6.4
On Trulicity 4.5 mg subcutaneous on Wednesdays and and pioglitazone 30 mg as outpatient.
I had advised the family to bring in Trulicity can get it at rehab as for discharge today
Will use NovoLog insulin in the time being
Accu-Cheks and sliding scale coverage
# Anxiety/Depression-continue Celexa
# Prostate disease-continue Flomax.
# Sleep apnea-continue CPAP
# Obesity with a BMI of 41
# DVT prophylaxis-Eliquis restarted
# Full code
Discussed with nursing at bedside
Discussed with case management.
Advised patient that he needs to be more mobile and out of bed
Part of this note was created using voice recognition system. Occasional wrong word or��sound alike� substitutions may have inadvertently occurred due to the inherent limitations of voice recognition software. If noted kindly bring it to my
attention for correction.
More than 30 minutes spent in discharge including
Final examination of the patient
Summarizing hospital stay
Instructions for continuing care to all relevant caregivers
Preparation of discharge records, prescriptions, and referral forms
37 min
Total time spent (in minutes):
Anticipated Discharge: Today
Subjective/Interval History
-
Date of Service: October 05, 2024
Objective Data
-
Vital Signs:
Vital Signs
Temp Pulse Resp BP Pulse Ox
98.6 F 83 20 146/62 98
10/05/24 07:48 10/05/24 07:48 10/05/24 07:48 10/05/24 07:48 10/05/24 07:48
I&O
10/04/24 10/05/24 10/06/24
06:59 06:59 06:59
Intake Total 780 / 780 710 / 710
Output Total 850 / 850 660 / 660
Balance -70 / -70 50 / 50
--- NOTE | 2024-10-05 09:12 | W.DS.TRANS ---
Addendum entered and electronically signed by Misti Vasquez MD 10/05/24 14:55:
Dictation- [id number]
Original Note:
DC Summary - Obstetrics Specialist
-
Discharge Instructions:
Discharge Diagnosis/Procedures Mechanical fall and right intertrochanteric
fracture status post ORIF October 01
Anemia secondary to acute blood loss
Acute heart failure with midrange ejection
fraction
Acute hypoxic respiratory insufficiency
Acute kidney injury
Coronary artery disease
Hyperlipidemia
Hypertension
Atrial fibrillation
Diabetes
Anxiety and depression
Prostate disease
Sleep apnea
Diet 2 Gram Sodium,Restrict fluids to 64 oz
Activity As tolerated,With assistance
Driving Restrictions No driving
Blood Work CBC, BMP 3 to 4 days
Other Services PT,OT
Specialty Instructions Weigh Daily
Instructions:
Stand-Alone Forms:
Changes to Home Medications: Yes
Discharge Medications:
DC Medications w/original date entered in [facility] MD
atorvastatin 40 mg tablet 40 mg PO HS High Cholesterol 08/31/20
citalopram 10 mg tablet 10 mg PO DAILY depression/anxiety 08/31/20
metoprolol tartrate 50 mg tablet 50 mg PO BID blood pressure 08/31/20
pantoprazole 40 mg tablet,delayed release 40 mg PO DAILY GERD 09/02/23
pioglitazone 30 mg tablet 30 mg PO DAILY diabetes 09/02/23
dulaglutide 4.5 mg/0.5 mL subcutaneous pen injector (Trulicity) 4.5 mg SC WE@1900 Diabetes 09/05/23
apixaban 5 mg tablet (Eliquis) 5 mg PO BID Blood Clot Prevention/Tx 09/28/24
cholecalciferol (vitamin D3) 125 mcg (5,000 unit) tablet (Vitamin D3) 125 mcg PO DAILY Supplement 09/28/24
tamsulosin 0.4 mg capsule (Flomax) 0.8 mg PO HS Urinary Issue 09/28/24
acetaminophen 325 mg tablet 1,000 mg (3.0769 x 325 mg) PO Q8H Pain #60 tabs 10/05/24
cyanocobalamin (vitamin B-12) 1,000 mcg capsule 1,000 mcg PO DAILY Supplement #30 caps 10/05/24
ferrous sulfate 325 mg (65 mg iron) tablet 325 mg PO DAILY anemia #30 tabs 10/05/24
furosemide 40 mg tablet 40 mg PO DAILY Fluid retention/Swelling #0 tabs 10/05/24
lidocaine 4 % topical patch 2 patch topical DAILY Pain #0 ea 10/05/24
oxycodone 10 mg tablet 10 mg PO Q4HPRN PRN moderate pain #6 tabs 10/05/24
oxycodone 5 mg tablet 5 mg PO Q4HPRN PRN mild pain #6 tabs 10/05/24
polyethylene glycol 3350 17 gram oral powder packet 17 g PO DAILY constipation #0 ea 10/05/24
sennosides 8.6 mg tablet (Roxane-drew) 17.2 mg (2 x 8.6 mg) PO BID Constipation #0 tabs 10/05/24
Home Medication Changes
new
acetaminophen 325 mg tablet 1,000 mg (3.0769 x 325 mg) PO Q8H Pain #60 tabs 10/05/24
cyanocobalamin (vitamin B-12) 1,000 mcg capsule 1,000 mcg PO DAILY Supplement #30 caps 10/05/24
ferrous sulfate 325 mg (65 mg iron) tablet 325 mg PO DAILY anemia #30 tabs 10/05/24
furosemide 40 mg tablet 40 mg PO DAILY Fluid retention/Swelling #0 tabs 10/05/24
lidocaine 4 % topical patch 2 patch topical DAILY Pain #0 ea 10/05/24
oxycodone 10 mg tablet 10 mg PO Q4HPRN PRN moderate pain #6 tabs 10/05/24
oxycodone 5 mg tablet 5 mg PO Q4HPRN PRN mild pain #6 tabs 10/05/24
polyethylene glycol 3350 17 gram oral powder packet 17 g PO DAILY constipation #0 ea 10/05/24
sennosides 8.6 mg tablet (Roxane-drew) 17.2 mg (2 x 8.6 mg) PO BID Constipation #0 tabs 10/05/24
Pending Results: No
[2024-10-05] MEDS: ACTOS 30 MG PO (09:15)
[2024-10-05] MEDS: COLACE PO (09:16)
[2024-10-05] MEDS: LASIX 40 MG PO (09:16)
[2024-10-05] MEDS: CELEXA 10 MG PO (09:16)
[2024-10-05] MEDS: ELIQUIS 5 MG PO (09:16)
[2024-10-05] MEDS: LIDOCAINE 4% PATCH 2 PATCH TOPICAL (09:17)
[2024-10-05] MEDS: VITAMIN D3 (cholecalciferol) 125 MCG PO (09:18)
[2024-10-05] MEDS: PROTONIX 40 MG PO (09:18)
[2024-10-05] MEDS: SENOKOT PO (09:18)
[2024-10-05] MEDS: NOVOLOG FLEXPEN-LOW RESISTANCE 1 UNITS SC (09:18)
[2024-10-05] MEDS: LOPRESSOR 50 MG PO (09:18)
[2024-10-05] MEDS: NOVOLOG FLEXPEN 5 UNITS SC (09:19)
== END 2024-10-05 11:18 | DRG 480 ==
LOC: 2 SOUTH 15:46
PROVIDERS: Nuclear Medicine Nuclear Cardiology; Nurse Practitioner Family; Physician Assistant; Physician Assistant Surgical; ADMITTING PHYSICIAN Internal Medicine; ATTENDING PHYSICIAN Hospitalist; CONSULT PHYSICIAN Internal Medicine Cardiovascular Disease; CONSULT PHYSICIAN Specialist; EMERGENCY PHYSICIAN Student in an Organized Health Care Education/Training Program; FAMILY PHYSICIAN Nurse Practitioner Adult Health
PROC: 0QS606Z Reposition Right Upper Femur with Intramedullary Internal Fixation Device, Open Approach (ICD-10-PCS; 2024-10-01)
PROC: 5A09357 Assistance with Respiratory Ventilation, Less than 24 Consecutive Hours, Continuous Positive Airway Pressure (ICD-10-PCS; 2024-10-01)
DX: S72.141A Displaced intertrochanteric fracture of right femur, initial encounter for closed fracture (principal); I50.21 Acute systolic (congestive) heart failure; I13.0 Hypertensive heart and chronic kidney disease with heart failure and stage 1 through stage 4 chronic kidney disease, or unspecified chronic kidney disease; I48.19 Other persistent atrial fibrillation; Z68.41 Body mass index [BMI] 40.0-44.9, adult; N17.9 Acute kidney failure, unspecified; D62 Acute posthemorrhagic anemia; N18.2 Chronic kidney disease, stage 2 (mild); E11.22 Type 2 diabetes mellitus with diabetic chronic kidney disease; E78.00 Pure hypercholesterolemia, unspecified; G47.33 Obstructive sleep apnea (adult) (pediatric); R06.89 Other abnormalities of breathing; R09.02 Hypoxemia; E66.9 Obesity, unspecified; I25.10 Atherosclerotic heart disease of native coronary artery without angina pectoris; N40.0 Benign prostatic hyperplasia without lower urinary tract symptoms; K21.9 Gastro-esophageal reflux disease without esophagitis; F41.9 Anxiety disorder, unspecified; M25.512 Pain in left shoulder; M25.511 Pain in right shoulder; F32.A Depression, unspecified; W01.0XXA Fall on same level from slipping, tripping and stumbling without subsequent striking against object, initial encounter; Y93.89 Activity, other specified; Y92.007 Garden or yard of unspecified non-institutional (private) residence as the place of occurrence of the external cause; Z95.5 Presence of coronary angioplasty implant and graft; Z87.442 Personal history of urinary calculi; Z79.01 Long term (current) use of anticoagulants; Z79.85 Long-term (current) use of injectable non-insulin antidiabetic drugs; Z91.040 Latex allergy status
CPT/HCPCS: 71045; 72050; 73030; 73502; 76000; 80048; 80053; 82607; 82728; 82962; 83036; 83540; 83550; 83880; 85014; 85018; 85025; 85027; 85610; 85730; 86803; 86850; 86900; 86901; 93005; 96374; 96375; 97163; 97167; 97530; 97535; 99285; C1713; J2916

== ENCOUNTER 2025-01-17 15:26 | Inpatient (IN) | payer MEDICARE, OTHER, SELFPAY ==
[2025-01-17 09:22] VITALS: BP 149/73
[2025-01-17 10:46] VITALS: BMI 38.3
[2025-01-17 11:14] LABS: Hematocrit 36.9 % (39.0-52.0); Hemoglobin 12.0 g/dL (13.0-18.0); Mean Corp Hgb Conc. 32.5 g/dL (33.0-37.0); Mean Corpuscular Volume 75.6 fL (80.0-94.0); Nucleated Red Blood Cells % 0 % (-); Platelet Count 183 10^3/uL (130-400); Red Cell Dist. Width 18.7 % (11.5-14.5)
[2025-01-17 11:43] LABS: ALT (SGPT) 16 U/L (0-50); AST (SGOT) 18 U/L (17-59); Albumin 4.4 g/dl (3.5-5.0); Alkaline Phosphatase 117 U/L (38-126); Blood Urea Nitrogen 8 mg/dl (9-20); Calcium 9.2 mg/dl (8.4-10.2); Carbon Dioxide 25 mmol/L (22-30); Chloride 99 mmol/L (98-107); Estimated Creatinine Clearance 105 ml/min; Glucose 186 mg/dl (70-99); Lipase 68 U/L (23-300); Potassium 3.5 mmol/L (3.5-5.1); Sodium 135 mmol/L (135-145); Total Protein 7.6 g/dl (6.3-8.2); eGFR > 60.00
[2025-01-17] MEDS: ZOFRAN 4 MG IV (11:45)
[2025-01-17] MEDS: DILAUDID 0.5 MG IV ×5 (11:45→20:58)
--- NOTE | 2025-01-17 12:12 | ED.GENMED ---
History of Present Illness
General
Chief Complaint: Abdominal Pain
Source: patient and family (Son)
Exam Limitations: none
Time Seen by Provider: 01/17/25 10:24
Nursing documentation reviewed up to this point in time: agreed with
History of Present Illness
History of Present Illness:
79-year-old male with a past medical history as noted presents to the ER for evaluation of abdominal pain. Patient notably had colonoscopy 01/13/2025, had biopsies taken reportedly; this was done through [facility]. Symptoms started the next day
with abdominal pain and symptoms have been progressive since then. He reports pain in the epigastrium radiates towards the left side. No clear triggering or relieving factors noted. He has associated nausea and vomiting this morning. Denies any
change in bowel habits. No fever noted. No urinary symptoms.
Past History
Past History
ED Past Medical History: CAD, HTN, Hypercholesterolemia, NIDDM, Renal failure (Mild chronic kidney disease) and Other (BPH, low back pain, Sleep apnea, Kidney stones)
ED Past Surgical History: Cardiac (stent placement)
Patient has exhibited threatening behavior?: No
Social History
Tobacco: Non-smoker
Alcohol: None
Personal:
Living: with family
Employment: Retired
Family History
Family History: Other (Noncontributory)
Review of Systems
Review of Systems
All Other Systems: ROS reviewed and negative except as documented in HPI and ROS
Constitutional: Denies fever
Respiratory: Denies trouble breathing
Cardiac: Denies chest pain
ABD/GI: Reports abdominal pain, nausea and vomiting; Denies diarrhea
: Denies dysuria or flank pain
Musculoskeletal: Denies neck pain or back pain
Neurological: Denies headache
Phy Exam
Physical Exam
Physical Exam:
General: Awake, alert, laying in bed appears to be in moderate pain distress
Head: Normocephalic, atraumatic
Eyes: Conjunctiva normal, sclera anicteric
Throat: Airway intact, handling secretions
Neck: Trachea midline, supple without meningismus
Lungs: Clear to auscultation bilaterally, no wheezing, rales, rhonchi
Heart: Regular rate and rhythm, no murmurs, gallops, or rubs
Abd: Soft, mildly distended, diffusely tender to palpation
Neuro: Grossly intact
Skin: No rash in area of concern
Extremities: Warm and well-perfused
Scores
Heart Failure Risk
Heart Failure Risk Score: Not Applicable
Heart Score for Chest Pain Patients
STEMI patient?: Not applicable
Withdrawal Assessment of Alcohol
Withdrawal Assessment Completed?: Not applicable
Course
Orders/Labs/Results
Orders:
Orders
01/17/25 11:00
Troponin I Urgent
01/17/25 11:02
Complete Blood Count/With Diff Urgent
Comprehensive Metabolic Panel Urgent
Lipase Urgent
01/17/25 11:36
HYDROmorphone [Dilaudid] 0.5 mg IV NOW STA
Ondansetron Injectable [Zofran] 4 mg IV NOW STA
01/17/25 11:37
CT Abd/pelvis W Iv Cont Urgent
Comment:
Reason For Exam: abd pain s/p colonoscopy
01/17/25 12:11
HYDROmorphone [Dilaudid] 0.5 mg IV NOW STA
01/17/25 12:13
Electrocardiogram (*1) Urgent
Reason for Study: Abdominal Pain
EKG- Treatment ONCE
01/17/25 13:23
US Abdomen Complete/Upper Urgent
Comment:
Reason For Exam: upper abd pain
01/17/25 13:25
HYDROmorphone [Dilaudid] 0.5 mg IV NOW STA
01/17/25 13:26
0.9% Sodium Chloride 500 ml [Nss] 500 ml IV BOLUS
01/17/25 13:36
CefTRIAXone [Rocephin] 1,000 mg IV NOW STA
MetroNIDAZOLE 500 MG/100 ML [Flagyl 500 mg] 100 ml IV NOW
01/17/25 13:37
Consult Surgery [SURGICAL CONSULT] Urgent
Consulting Provider: Apollo Whipple
Was physician already notified: Yes
Abnormal Lab Results
01/17/25
11:02
Hgb 12.0 L g/dL
(13.0-18.0)
Hct 36.9 L %
(39.0-52.0)
MCV 75.6 L fL
(80.0-94.0)
MCH 24.6 L pg
(27.0-31.0)
MCHC 32.5 L g/dL
(33.0-37.0)
RDW 18.7 H %
(11.5-14.5)
Absolute Neuts (auto) 6.7 H 10^3/uL
(1.4-6.5)
Absolute Monos (auto) 0.8 H 10^3/uL
(0.1-0.6)
Lymphocytes % 17.1 L %
(20.5-51.1)
BUN 8 L mg/dl
(9-20)
Glucose 186 H mg/dl
(70-99)
Total Bilirubin 1.6 H mg/dl
(0.2-1.3)
01/17/25 11:02
01/17/25 11:02
Vital Signs
Initial and Last Documented VS:
Initial Vital Signs
Temp Pulse Resp BP Pulse Ox
36.5 C 75 18 149/73 97
01/17/25 09:22 01/17/25 09:22 01/17/25 09:22 01/17/25 09:22 01/17/25 09:22
Last Documented Vital Signs
Temp Pulse Resp BP Pulse Ox
36.5 C 75 14 158/68 98
01/17/25 09:22 01/17/25 13:00 01/17/25 13:00 01/17/25 13:00 01/17/25 13:00
MDM/Problems Addressed
Differential Diagnosis Includes:
Colon perforation, splenic injury, diverticulitis, nephrolithiasis, anginal equivalent
MDM/Problems Addressed:
79-year-old male who is a few days out from a colonoscopy presents for evaluation of abdominal pain worsening over the past few days. Vitals and exam as above. Plan to check labs including a CBC and a CMP, lipase. Will check EKG and troponin.
Will send for a CT of the abdomen pelvis. Will provide pain control and antiemetic. Monitor closely reassess after the above.
Labs reviewed: CBC shows marginal anemia, CMP no clinically significant abnormalities. T. bili marginally elevated which is chronic. Transaminases are normal and lipase is normal. EKG shows sinus rhythm and troponin is undetectable. CT abdomen
pelvis shows no definitive acute process however gallbladder is distended and there could be some pericholecystic fluid on CT. There is also some stranding around the bladder. Given the degree of pain patient is having�he required another
parenteral dose of pain medicine and continues to look uncomfortable�suspect that this may be acute cholecystitis. Will plan to follow-up with an ultrasound. Will cover with antibiotics. Discussed case with general surgery for consultation.
Discussed case with hospitalist for admission.
*Radiology
Radiology exam reviewed: radiology read reviewed
*Pulse Oximetry
SaO2: 100
Oxygen Mode of Delivery: Room air
Patient hypoxic: no (100%)
*EKG
Interpreted by ED Provider?: Yes
Heart Rate: 70
Rate: normal
Rhythm: sinus and PVC's
[place]: normal axis
Interval: normal interval
QRS Pattern: normal QRS
Ischemia: non-specific ST changes
*Critical Care Note
Total Time (30-74mins, 75-104mins- exclusive of procedures): Not Applicable
Data Reviewed
Source: patient, records and family
Patient Management
Discussion with other providers: Hospitalist (Discussed with hospitalist) and Child Care Lead Teacher (Discussed with general surgeon)
Escalation/DeEscalation of care consider admission/obs:
Admission indicated
ED Attending Note
-
Portions of this chart may have been created with voice recognition software.� Occasional wrong word or��sound alike� substitutions may have occurred due to the inherent limitations of voice recognition software.
Discharge Plan
Departure
Patient Disposition: Admit
Date of Disposition: 01/17/25
Time of Disposition: 13:37
Admit to doctor: Quinn
Presentation/result/management discussed w/ accepting MD/DO: Hospitalist
Discharge Problem:
Abdominal pain, Acute cholecystitis
Prescriptions:
No Action
atorvastatin 40 MG tablet
40 mg PO HS
citalopram 10 MG tablet
10 mg PO DAILY
metoprolol tartrate 50 MG tablet
50 mg PO BID
pantoprazole 40 mg tablet,delayed release (DR/EC)
40 mg PO DAILY
pioglitazone 30 mg tablet
30 mg PO DAILY
Trulicity 4.5 mg/0.5 mL pen injector
4.5 mg SC WE@1900
tamsulosin [Flomax] 0.4 mg Capsule
0.8 mg PO HS
cholecalciferol (vitamin D3) [Vitamin D3] 125 mcg (5,000 unit) Tablet
125 mcg PO DAILY
Eliquis 5 mg Tablet
5 mg PO BID
sennosides [Roxane-drew] 8.6 mg Tablet
17.2 mg PO BID Qty: 0 0RF
acetaminophen 325 mg Tablet
1,000 mg PO Q8H Qty: 60 0RF
oxycodone 10 mg Tablet
10 mg PO Q4HPRN PRN (Reason: moderate pain) Qty: 6 0RF
oxycodone 5 mg Tablet
5 mg PO Q4HPRN PRN (Reason: mild pain) Qty: 6 0RF
polyethylene glycol 3350 17 gram Powder In Packet
17 g PO DAILY Qty: 0 0RF
furosemide 40 mg Tablet
40 mg PO DAILY Qty: 0 0RF
lidocaine 4 % Adhesive Patch,Medicated
2 patch topical DAILY Qty: 0 0RF
cyanocobalamin (vitamin B-12) 1,000 mcg capsule
1,000 mcg PO DAILY Qty: 30 0RF
ferrous sulfate 325 mg (65 mg iron) tablet
325 mg PO DAILY Qty: 30 0RF
Referrals:
Lu Lopez NP [Family Provider, Family Practice]
Interventions
Interventions:
[id number] Assessment Last Done: 01/17/25 10:47
Discharge Date and Time
Print Language: Greenlandic
[2025-01-17 12:50] VITALS: BP 158/74
[2025-01-17 12:59] LABS: Troponin I < 0.012 ng/ml
[2025-01-17 13:00] VITALS: BP 158/68
--- NOTE | 2025-01-17 13:42 | HPS.HSE ---
Addendum entered and electronically signed by Toño Harris MD 01/17/25 15:31:
Patient seen and examined independently.
Plan of care discussed with physician sourcing assistant Elly
Impression
79 years old male with ASCVD, type 2 diabetes, obesity underwent colonoscopy on 01/14 with small rectal polyp removed. 2 days after colonoscopy patient developed abdominal pain mostly at the epigastric and right upper quadrant area nausea and dry
heaves.
Epigastric/right upper quadrant abdominal pain
Other conditions
Recent hospitalization with mechanical fall and right hip fracture requiring gamma nail fixation 10/13
Chronic CHF mildly reduced EF)�EF 45 to�50% by echo 09/12
CAD status post BMS x 2 unknown
Persistent atrial fibrillation baseline chronic Eliquis therapy.
Moderate MR
Dyslipidemia
Type 2 diabetes.
Obesity due to excessive calories BMI 38.2
BPH
Plan:
Acute concern at over epigastric abdominal pain.
Afebrile.
Exam with right upper quadrant tenderness.
CT scan of the abdomen and pelvis with IV contrast only showed no acute colonic pathology concerning for moderately distended gallbladder with questionable trace of the cholecystic fluid. No radiopaque stones appreciated.
Abdominal ultrasound showing moderate amount of sludge within the distended gallbladder with no findings of acute cholecystitis.
Concern for biliary colic, evolving acute cholecystitis.
Normal WBC, LFT, afebrile, although with right upper quadrant tenderness.
Surgery evaluation
Allow clear liquid diet
Hold Eliquis for possible cholecystectomy.
Monitor for recurrent pain.
Consider HIDA
Initiated on empiric antibiotics ceftriaxone/Flagyl while in ED
Continue PPI
ASCVD.
Permanent A-fib.
Chronic CHF mildly reduced EF.
Is compensated.
Hold Lasix acutely given reduced oral intake
Continue metoprolol, amlodipine
Type 2 diabetes.
Update hemoglobin A1c
Outpatient regimen including Trulicity and pioglitazone.
Hold pioglitazone acutely.
Moving forward TZD probably not the best option for patient with CHF
Insulin basal bolus protocol with serial Accu-Cheks
BPH.
Monitor for retention
Continue Flomax
Original Note:
Family Physician
-
Family Physician: Lu Lopez NP
Chief Complaint
-
Abdominal Pain
History of Present Illness
Patient is a 79 y/o male past medical history of CAD, CHF, A-Fib, DM, HTN, BPH and CANDICE who presents with abdominal pain. Patient underwent colonoscopy on Jan 13, and the abdominal pain started the following day. He notes pain is mostly in the
epigastric region and radiates towards the left side. He reports associated nausea and vomiting this morning. He denies changes in bowel habits and denies rectal bleeding. He denies fevers.
Medical History
Past Medical History
Past Medical History: Reports Other
Additional Past Medical History:
Coronary Artery Disease s/p Stent
Chronic HFmrEF
Permanent Atrial Fibrillation
Diabetes Mellitus, Type II
Essential Hypertension
Hyperlipidemia
Anxiety / Depression
BPH
Obstructive Sleep Apnea
Past Surgical History: Reports Other
Additional Past Surgical History:
cardiac stent
Social History
Tobacco: Non-smoker
Alcohol: None
Personal:
Living: With Family
Employment: Retired
Family History
Family History: Not pertinent
Allergies / Home Medications
Allergies reflects when Allergies were last updated in [facility].
Home Medications with original date entered in [facility]
Allergy/Medication List:
Allergies
Allergy/AdvReac Type Severity Reaction Status Date / Time
latex Allergy Rash Verified 01/17/25 09:22
Home Medications
citalopram 10 mg tablet 10 mg PO DAILY depression/anxiety 08/31/20
pantoprazole 40 mg tablet,delayed release 40 mg PO DAILY GERD 09/02/23
pioglitazone 30 mg tablet 30 mg PO DAILY diabetes 09/02/23
dulaglutide 4.5 mg/0.5 mL subcutaneous pen injector (Trulicity) 4.5 mg SC WE@1900 Diabetes 09/05/23
apixaban 5 mg tablet (Eliquis) 5 mg PO BID Blood Clot Prevention/Tx 09/28/24
tamsulosin 0.4 mg capsule (Flomax) 0.8 mg PO HS Urinary Issue 09/28/24
furosemide 40 mg tablet 40 mg PO DAILY Fluid retention/Swelling #0 tabs 10/05/24
amlodipine 10 mg tablet (Norvasc) 10 mg PO DAILY 01/17/25
atorvastatin 20 mg tablet (Lipitor) 20 mg PO QPM 01/17/25
ergocalciferol (vitamin D2) 1,250 mcg (50,000 unit) capsule 1,250 mcg PO HSU 01/17/25
metoprolol tartrate 25 mg tablet 25 mg PO BID 01/17/25
Review of Systems
-
A 12 point ROS was completed and negative except as noted: Yes
Constitutional: Denies Fever
Respiratory: Denies Cough or Trouble Breathing
Cardiac: Denies Chest Pain or Palpitations
Abdomen/GI: Denies Abdominal Pain, Nausea, Vomiting or Diarrhea
Physical Exam
Vital Signs
Vital Signs
Temp Pulse Resp BP Pulse Ox
97.7 F 75 14 158/68 98
01/17/25 09:22 01/17/25 13:00 01/17/25 13:00 01/17/25 13:00 01/17/25 13:00
Physical Exam
General: Well Developed, No Apparent Distress and Obese
HEENT: NormoCephalic, Anicteric, Moist mucous membranes and Atraumatic
Respiratory: Clear and Non Labored Respirations; No Wheezes, Rales or Rhonchi
Cardiac: S1/S2 and Irregular Rhythm; No Tachycardia
GI: Soft and Tender (Mild in epigastric region, and Moderate in Right Upper Quadrant with some voluntary guarding)
Rectal: Deferred by Provider
Musculoskeletal: No Clubbing, No Cyanosis and No Edema
Skin: Warm and Dry; No Rash
Neuro: Awake, Alert, Oriented and Nonfocal/grossly intact
Psych: Calm
Laboratory Results
-
01/17/25 11:02
01/17/25 11:02
Laboratory Results
Total Bilirubin 1.6 mg/dl (0.2-1.3) H 01/17/25 11:02
AST 18 U/L (17-59) 01/17/25 11:02
ALT 16 U/L (0-50) 01/17/25 11:02
Alkaline Phosphatase 117 U/L (38-126) 01/17/25 11:02
Troponin I < 0.012 ng/ml 01/17/25 11:00
Lipase 68 U/L (23-300) 01/17/25 11:02
Abd/Pelvis CT Scan:
1. No definitive acute abnormalities within the abdomen or pelvis.
2. Moderately distended gallbladder with questionable trace pericholecystic fluid. No radiopaque stones appreciated. If patient has right upper quadrant abdominal pain, acute cholecystitis is a consideration.
3. Mild pericystic stranding which may be chronic given findings on prior CT, however cystitis is also a consideration.
4. No colonic wall thickening appreciated. No free fluid within the abdomen or pelvis. No evidence for free air.
Data Reviewed
-
CT Scan: Report Reviewed by me
Lab Data: Labs Reviewed by me
Impression/Plan
-
Abdominal Pain, likely secondary to Acute Cholecystitis
-Await Abd US
-Consult General Surgery
-Allow clear liquids for now then NPO after midnight for possible OR tomorrow
-Continue ceftriaxone and metronidazole
Coronary Artery Disease s/p Stent
-Stable
Chronic HFmrEF
-Echo August 2024: EF 45-50%
-Hold Lasix while on decreased diet
-Monitor Is&Os and Daily Weights
Permanent Atrial Fibrillation
-Hold Eliquis pending surgical consult
-Continue Metoprolol for rate control
Diabetes Mellitus, Type II
-Monitor sugars and continue coverage insulin
-Hold pioglitazone
-Patient maintained on Trulicity as outpatient
Essential Hypertension
-Continue metoprolol
Hyperlipidemia
-Continue atorvastatin
Anxiety / Depression
-Continue Celexa
BPH
-Continue Flomax
Obstructive Sleep Apnea
-Continue CPAP
Class II Obesity due to Excess Calories
-Encourage weight loss
-Affects all aspects of care
DVT proph: SCDs until able to resume Eliquis
[2025-01-17] MEDS: ROCEPHIN 1000 MG IV (14:38)
[2025-01-17] MEDS: NSS 500 IV (14:39)
[2025-01-17] MEDS: FLAGYL 500 MG 100 IV ×2 (14:39→21:01)
--- NOTE | 2025-01-17 14:52 | CON.GS ---
Addendum entered and electronically signed by Apollo Whipple MD 01/17/25 18:37:
I saw and examined the patient independently.
The Sql Manager's note was reviewed and I agree with the note, assessment and plan except where noted below.
Comment: This is a 79-year-old male with a history of CAD, A-fib on Eliquis, diabetes, morbid obesity who presents with a 2-day history of postprandial right upper quadrant/epigastric abdominal pain. Exam, imaging, blood work all consistent with
acute cholecystitis. His last dose of Eliquis was yesterday evening.
Will plan for a laparoscopic cholecystectomy with possible cholangiogram in the OR tomorrow
N.p.o., IV fluids, IV antibiotics.
Risks/Benefits/Alternatives, expected postoperative course and possible complications (bleeding, infection, injury to surrounding structures, acute/chronic pain) discussed at length. Patient wishes to proceed with surgery. All questions answered.
Consent not obtained.
I spent 65 minutes in total for the care of this patient today including direct patient care and counseling, reviewing labs, imaging, coordination of care, as well as documentation.
Original Note:
Consultation
-
Date/Time Consultation Performed: 01/17/25 1445
Medical History
-
Chief Complaint: RUQ pain
History of Present Illness:
Mr Toney is a 79 yo male with a h/o CAD s/p stent, afib on Eliquis (LD yesterday ryan), NIDDM and colonoscopy in on 01/14 with biopsy of a small rectal polyp at that time in [place]. He did well initially after his scope and had no pain or
discomfort. He was quite hungry after his prep and had a large fatty meal with bruce and subsequently developed RUQ and epigastric discomfort and pain. He is complaining of epigastric discomfort currently with severe RUQ tenderness/+Ames's sign on
exam. He reports nausea and vomiting this morning prompting presentation to the ED for evaluation. He has been stooling normally with last BM today.
Pt seen and examined at bedside with Dr. Harris. Son present to assist with history.
Past Medical History
Past Medical History: Arrhythmias (afib on Eliquis (LD 01/16 pm)), CAD, HTN, Hypercholesterolemia, NIDDM, Renal Failure (CKD, bph, renal stone) and Valvular Disease (moderate MR)
Past Surgical History: Cardiac (cardiac stent) and Orthopedic (right femur gamma nail 09/2024)
Social History
Tobacco: Non-Smoker
Alcohol: Occasional
Family History
Family History: Reviewed & Not Pertinent
Allergies / Home Medications
Allergy/AdvReac Type Severity Reaction Status Date / Time
latex Allergy Rash Verified 01/17/25 09:22
�Medication �Instructions �Recorded �Confirmed �Type
citalopram 10 mg tablet 10 mg PO DAILY depression/anxiety 08/31/20 01/17/25 History
pantoprazole 40 mg tablet,delayed 40 mg PO DAILY GERD 09/02/23 01/17/25 History
release
pioglitazone 30 mg tablet 30 mg PO DAILY diabetes 09/02/23 01/17/25 History
dulaglutide 4.5 mg/0.5 mL 4.5 mg SC WE@1900 Diabetes 09/05/23 01/17/25 History
subcutaneous pen injector
(Trulicity)
apixaban 5 mg tablet (Eliquis) 5 mg PO BID Blood Clot 09/28/24 01/17/25 History
Prevention/Tx
tamsulosin 0.4 mg capsule (Flomax) 0.8 mg PO HS Urinary Issue 09/28/24 01/17/25 History
furosemide 40 mg tablet 40 mg PO DAILY Fluid 10/05/24 01/17/25 Rx
retention/Swelling #0 tabs
amlodipine 10 mg tablet (Norvasc) 10 mg PO DAILY 01/17/25 01/17/25 History
atorvastatin 20 mg tablet (Lipitor) 20 mg PO QPM 01/17/25 01/17/25 History
ergocalciferol (vitamin D2) 1,250 1,250 mcg PO HSU 01/17/25 01/17/25 History
mcg (50,000 unit) capsule
metoprolol tartrate 25 mg tablet 25 mg PO BID 01/17/25 01/17/25 History
Review of Systems
-
History Source: Patient and Family
All other systems: Negative unless noted
A 10 point review of systems was completed, and was negative except as per HPI.
Physical Exam
Vital Signs
Temp Pulse Resp BP Pulse Ox
97.7 F 75 14 158/68 98
01/17/25 09:22 01/17/25 13:00 01/17/25 13:00 01/17/25 13:00 01/17/25 13:00
01/16/25 01/17/25 01/18/25
06:59 06:59 06:59
Actual Weight 127.9 kg
Body Mass Index (BMI) 38.3
Lab Results
01/17/25 11:02
01/17/25 11:02
WBC 9.2 10^3/uL (4.8-10.8) 01/17/25 11:02
Hgb 12.0 g/dL (13.0-18.0) L 01/17/25 11:02
Hct 36.9 % (39.0-52.0) L 01/17/25 11:02
Plt Count 183 10^3/uL (130-400) 01/17/25 11:02
Abs Immat Gran (auto) 0.0 10^3/uL (0-0.05) 01/17/25 11:02
Neutrophils % 72.9 % (42.2-75.2) 01/17/25 11:02
Physical Exam
General: Well Developed
HEENT: Moist Mucous Membranes
GI: Soft and Tender (+Ames's/RUQ severely tender, +epigastric tenderness)
Skin: Warm and Dry
Neuro: Awake, Alert and AO x 3
Psych: Calm
Data Reviewed
-
CT Scan: Image Personally Visualized and interpreted, Report Reviewed by me, Discussed with Physician, Discussed with Patient and Discussed with Family
Ultrasound: Image Personally Visualized and interpreted, Discussed with Physician, Discussed with Patient and Discussed with Family
Labs: Labs Reviewed by me, Discussed with Physician, Discussed with Patient and Discussed with Family
Old Records: Reviewed
Assessment / Plan
-
Mr Toney is a 79 yo male with a h/o CAD s/p stent, afib on Eliquis (LD yesterday ryan), NIDDM and colonoscopy in on 01/14 with biopsy of a small rectal polyp at that time in [place]. He did well initially after his scope and had no pain or
discomfort. He was quite hungry after his prep and had a large fatty meal with bruce and subsequently developed RUQ and epigastric discomfort and pain which has persisted for the past few days with onset of n/v today. Marked RUQ tenderness on
exam/+ames's. CT imaging without evidence of bowel perforation/trauma from recent colonoscopy (although preformed without PO contrast), distended gallbladder noted, no stones noted on CT but sludge/stones noted on f/u US imaging . No significant
wall thickening or pericholecystic edema on imaging. No leukocytosis. Bilirubin mildly elevated at 1.6, transaminases normal. Afebrile, VSS.
Exam and HPI consistent with biliary colic. Given ongoing pain and nausea, would benefit from laparoscopic cholecystectomy. No emergent surgery planned today, will allow time for Eliquis washout.
Plan:
Hold Eliquis for tentative OR
Clear liquids as tolerated today, NPO after MN
Ceftriaxone/flagyl initiated in ED, will continue
Medical management as for hospitalist
--- NOTE | 2025-01-17 15:44 | EDCM ---
CM reviewed chart and met with pt and son bedside in ED. Pt is German speaking but does understand some Spanish. Lives with his , son and his family in 2 story home. Lives primarily upstairs, rarely gets OOB. Per son he does ambulate to BR with
RW. Has CPAP from [facility]. He has caregivers 13 hours a day, covered by Medicaid.
Confirms prescription coverage. [employer] form reviewed and signed by son, copy left with him.
Hx but unsure of agency. Hx [facility] for STR in 09/2024, they do not want him to return there.
PCP: Lu Lopez
Pharmacy: [facility] in [place]
CM will continue to follow for any discharge planning needs.
[2025-01-17 17:34] VITALS: BP 152/66
[2025-01-17 17:38] VITALS: BMI 40.9
[2025-01-17 18:03] LABS: Glucose - Point of Care 165 mg/dl (70-99)
[2025-01-17] MEDS: LIPITOR 20 MG PO (18:04)
[2025-01-17] MEDS: NOVOLOG FLEXPEN-LOW RESISTANCE 1 UNITS SC (18:04)
[2025-01-17] MEDS: LOPRESSOR 25 MG PO (19:49)
[2025-01-17] MEDS: FLOMAX 0.8 MG PO (21:00)
[2025-01-17 21:41] LABS: Glucose - Point of Care 168 mg/dl (70-99)
[2025-01-17 23:31] VITALS: BP 130/57
[2025-01-18] VITALS (13 sets, daily range): BP systolic 20–142; BP diastolic 38–75; BMI 39.4
[2025-01-18] MEDS: DILAUDID 0.5 MG IV ×3 (02:12→08:50)
[2025-01-18] MEDS: FLAGYL 500 MG 100 IV ×2 (05:36→21:04)
[2025-01-18 06:50] LABS: Hematocrit 39.2 % (39.0-52.0); Hemoglobin 12.5 g/dL (13.0-18.0); Mean Corp Hgb Conc. 31.9 g/dL (33.0-37.0); Mean Corpuscular Volume 77.8 fL (80.0-94.0); Platelet Count 180 10^3/uL (130-400); Red Cell Dist. Width 18.7 % (11.5-14.5)
[2025-01-18 07:29] LABS: ALT (SGPT) 16 U/L (0-50); AST (SGOT) 19 U/L (17-59); Albumin 3.8 g/dl (3.5-5.0); Alkaline Phosphatase 90 U/L (38-126); Blood Urea Nitrogen 12 mg/dl (9-20); Calcium 9.1 mg/dl (8.4-10.2); Carbon Dioxide 30 mmol/L (22-30); Chloride 96 mmol/L (98-107); Estimated Creatinine Clearance 101 ml/min; Glucose 156 mg/dl (70-99); Potassium 4.0 mmol/L (3.5-5.1); Sodium 133 mmol/L (135-145); Total Protein 6.7 g/dl (6.3-8.2); eGFR > 60.00
--- NOTE | 2025-01-18 08:09 | W.PN.GS2 ---
Today's Communication / Plan
-
-- Lap susanna with IOC
-- NPO, IVF
-- Abx: Ceftriaxone and Flagyl
Assessment / Plan
-
Patient is a 79 yo M p/w acute cholecystitis
Febrile overnight, VSS
Labs notable for WBC rise to 18, stable Hb, normal platelets, rise in bilirubin, normal LFTs and ALP
Presenting with likely severe cholecystitis. Options for management reviewed. Increased risks for operative complications with obesity and active anticoagulation.
Plan for laparoscopic cholecystectomy with possible IOC. The procedure itself, as well as the risks, benefits and alternatives was discussed. Specifically, we discusses the risks of bleeding (increased risk with Eliquis), infection, injury to
surrounding structures (bowel, bile ducts), CBD injury, need for open procedure, and anesthestic risks. All questions answered. Consent signed. Son updated by phone and present for discussion.
-- Lap susanna with IOC
-- NPO, IVF
-- Abx: Ceftriaxone and Flagyl
Subjective Data
-
Date of Service: January 18, 2025
Continued pain. No nausea. Febrile overnight.
Objective Data
-
Intake and Output
01/17/25 01/18/25 01/19/25
06:59 06:59 06:59
Intake Total 680 / 680
Output Total 350 / 350
Balance 330 / 330
Intake:
Oral fluids 480 / 480
IV piggybacks 200 / 200
Output:
Urine, Voided 350 / 350
Vital Signs
Temp Pulse Resp BP Pulse Ox
97.6 F 74 12 130/57 96
01/18/25 00:14 01/17/25 23:31 01/17/25 23:31 01/17/25 23:31 01/17/25 23:31
Lab Results
01/18/25 06:30
01/18/25 06:30
Calcium 9.1 mg/dl (8.4-10.2) 01/18/25 06:30
Total Bilirubin 2.2 mg/dl (0.2-1.3) H 01/18/25 06:30
AST 19 U/L (17-59) 01/18/25 06:30
ALT 16 U/L (0-50) 01/18/25 06:30
Alkaline Phosphatase 90 U/L (38-126) 01/18/25 06:30
Total Protein 6.7 g/dl (6.3-8.2) 01/18/25 06:30
Albumin 3.8 g/dl (3.5-5.0) 01/18/25 06:30
Physical Exam
-
Gen: NAD
Abd: soft, obese, tender in RUQ, ND, no diffuse peritonitis
Patient has a doyle catheter: No
Patient has a central line: No
[2025-01-18 08:14] LABS: Glucose - Point of Care 145 mg/dl (70-99)
--- NOTE | 2025-01-18 08:15 | W.SUR.PREOP ---
Pre-Operative Surgical Note
-
I have examined this patient prior to the performance of the scheduled procedure.
The patient's condition is unchanged from the time of the current History and
Physical and the patient is able to undergo the scheduled procedure.
[2025-01-18] MEDS: NOVOLOG FLEXPEN-LOW RESISTANCE SC ×2 (08:20→12:16)
[2025-01-18] MEDS: NORVASC 10 MG PO (08:23)
[2025-01-18] MEDS: LOPRESSOR 25 MG PO ×2 (08:23→20:02)
[2025-01-18] MEDS: PROTONIX 40 MG PO (08:23)
[2025-01-18] MEDS: CELEXA 10 MG PO (08:23)
[2025-01-18 09:00] LABS: Glycohemoglobin (HgbA1c) 6.1 % (4.0-5.6)
[2025-01-18] MEDS: NSS 1000 IV (09:40)
[2025-01-18 12:15] LABS: Glucose - Point of Care 146 mg/dl (70-99)
--- NOTE | 2025-01-18 14:39 | W.IMMPOSTOP ---
Surgical Immed Post Op Note
-
Primary Surgeon: Linda
Assisting Surgeon: None
Pre-op Diagnosis: Acute cholecystitis
Post-op Diagnosis: Acute gangrenous cholecystitis with perforation
Procedure Performed: Laparoscopic cholecystectomy
Anesthesia Type: General
Specimen / Cultures:
1 Gallbladder
Estimated Blood Loss: 7 cc
Complications: None
Operative Findings:
1. Acutely inflamed gangrenous and necrotic cholecystitis with perforation and bilious staining
2. Critical view, no IOC due to friable tissues
3. Duct and artery taken with clips
4. 19 Fr HARJINDER into operative field
--- NOTE | 2025-01-18 14:48 | W.PN.HOSP.TC ---
Today's Communication/Plan
-
Status postcholecystectomy.
Clears.
Off oral hypoglycemics.
Basal bolus protocol.
Antibiotics
Assessment / Plan
Assessment / Plan
Impression
79 years old male with ASCVD, type 2 diabetes, obesity underwent colonoscopy on 01/14 with small rectal polyp removed. 2 days after colonoscopy patient developed abdominal pain mostly at the epigastric and right upper quadrant area nausea and dry
heaves.
Acute cholecystitis
Other conditions
Recent hospitalization with mechanical fall and right hip fracture requiring gamma nail fixation 10/13
Chronic CHF mildly reduced EF)�EF 45 to�50% by echo 09/12
CAD status post BMS x 2 unknown
Persistent atrial fibrillation baseline chronic Eliquis therapy.
Moderate MR
Dyslipidemia
Type 2 diabetes.
Obstructive sleep apnea on CPAP at night
Obesity due to excessive calories BMI 38.2
BPH
Plan
Acute cholecystitis.
Status post laparoscopic cholecystectomy on 01/18. Intraoperative findings consistent with gangrenous cholecystitis
Continue to biotics: Ceftriaxone/Flagyl.
Continue holding Eliquis
Clear liquid diet
Continue PPI
ASCVD.
Permanent A-fib.
Chronic CHF mildly reduced EF.
Is compensated.
Hold Lasix acutely given reduced oral intake
Continue metoprolol, amlodipine
Type 2 diabetes.
Update hemoglobin A1c 6.1
Outpatient regimen including Trulicity and pioglitazone.
Hold pioglitazone acutely.
Moving forward TZD probably not the best option for patient with CHF
Insulin basal bolus protocol with serial Accu-Cheks
Anticipated Discharge: 24 - 48 hours
Subjective/Interval History
-
Date of Service: January 18, 2025
Objective Data
-
Labs:
Laboratory Results
01/18/25
06:30
WBC 18.5 H
Hgb 12.5 L
Hct 39.2
Plt Count 180
Sodium 133 L
Potassium 4.0
Chloride 96 L
Carbon Dioxide 30
BUN 12
Creatinine 0.8
Glucose 156 H
Calcium 9.1
Total Bilirubin 2.2 H
AST 19
ALT 16
Alkaline Phosphatase 90
Vital Signs:
Vital Signs
Temp Pulse Resp BP Pulse Ox
98.7 F 83 16 142/64 95
01/18/25 07:50 01/18/25 07:50 01/18/25 07:50 01/18/25 07:50 01/18/25 07:50
I&O
01/17/25 01/18/25 01/19/25
06:59 06:59 06:59
Intake Total 680 / 680
Output Total 350 / 350
Balance 330 / 330
Physical Exam
-
General: Well Developed and No Apparent Distress
HEENT: Normocephalic, Atraumatic and Moist Mucous Membranes
Respiratory: Clear to Auscultation
Cardiac: Regular Rhythm and S1/S2; Negative Murmur, Rub or Gallop
GI: Soft, Nontender, Nondistended and Normal Bowel Sounds; Negative Organomegaly
Rectal: Deferred by Provider
Musculoskeletal: No Clubbing, No Cyanosis and No Edema
Skin: Negative Rash
Neuro: Nonfocal/Grossly Intact
[2025-01-18] MEDS: FLAGYL 500 MG IV (15:35)
[2025-01-18 15:39] LABS: Glucose - Point of Care 182 mg/dl (70-99)
[2025-01-18] MEDS: STERILE WATER FOR INJECTION 10 ML IV (16:27)
[2025-01-18] MEDS: ROCEPHIN 1000 MG IV (16:27)
--- NOTE | 2025-01-18 16:37 | PTCARENOTE ---
Pt returned from OR s/p lap susanna. Pt alert and pleasant. Denies pain at this time. 4 lap sites on abdomen - well approximated w/ surgical glue. R abdomen HARJINDER drain in place w/ small amount of serosanguineous output. VSS.
[2025-01-18 16:53] LABS: Glucose - Point of Care 192 mg/dl (70-99)
[2025-01-18] MEDS: NOVOLOG FLEXPEN-LOW RESISTANCE 1 UNITS SC (17:19)
[2025-01-18] MEDS: LIPITOR 20 MG PO (17:19)
[2025-01-18] MEDS: FLOMAX 0.8 MG PO (21:04)
[2025-01-18 21:14] LABS: Glucose - Point of Care 288 mg/dl (70-99)
[2025-01-19] MEDS: NSS 1000 IV (04:58)
[2025-01-19] MEDS: FLAGYL 500 MG 100 IV ×3 (05:02→21:11)
[2025-01-19 05:55] VITALS: BMI 41.4
[2025-01-19 07:16] LABS: Hematocrit 33.6 % (39.0-52.0); Hemoglobin 11.3 g/dL (13.0-18.0); Mean Corp Hgb Conc. 33.6 g/dL (33.0-37.0); Mean Corpuscular Volume 77.2 fL (80.0-94.0); Nucleated Red Blood Cells % 0 % (-); Platelet Count 186 10^3/uL (130-400); Red Cell Dist. Width 18.2 % (11.5-14.5)
[2025-01-19 07:40] LABS: ALT (SGPT) 18 U/L (0-50); AST (SGOT) 23 U/L (17-59); Albumin 2.9 g/dl (3.5-5.0); Alkaline Phosphatase 72 U/L (38-126); Blood Urea Nitrogen 20 mg/dl (9-20); Calcium 8.5 mg/dl (8.4-10.2); Carbon Dioxide 30 mmol/L (22-30); Chloride 98 mmol/L (98-107); Estimated Creatinine Clearance 103 ml/min; Glucose 157 mg/dl (70-99); Potassium 3.7 mmol/L (3.5-5.1); Sodium 132 mmol/L (135-145); Total Protein 5.7 g/dl (6.3-8.2); eGFR > 60.00
[2025-01-19 08:00] VITALS: BP 136/70
[2025-01-19 08:24] LABS: Glucose - Point of Care 146 mg/dl (70-99)
[2025-01-19] MEDS: NSS IV (10:38)
[2025-01-19] MEDS: NORVASC 10 MG PO (10:38)
[2025-01-19] MEDS: NOVOLOG FLEXPEN-LOW RESISTANCE SC (10:38)
[2025-01-19] MEDS: CELEXA 10 MG PO (10:38)
[2025-01-19] MEDS: PROTONIX 40 MG PO (10:39)
[2025-01-19] MEDS: LOPRESSOR 25 MG PO ×2 (10:39→19:43)
--- NOTE | 2025-01-19 11:24 | W.PN.GS2 ---
Today's Communication / Plan
-
-- Advance to LFD
-- Abx: Ceftriaxone and Flagyl
-- DVT: Lovenox, OK to resume Eliquis 48 hours post-op
-- Maintain HARJINDER for today, removal tomorrow versus Friday
Assessment / Plan
-
Patient is a 79 yo M p/w acute cholecystitis
POD#1 s/p laparoscopic cholecystectomy
AVSS
Labs notable for downtrend in WBC, stable Hb, hyponatremia, normal renal function, normalized bilirubin, normal LFTs and ALP
Recovering well. No postoperative concerns. Dietary advancement to low-fat diet today. Continue to monitor in hospital for drain management and further IV antibiotics. Will plan on a total of 7-day postoperative course of antibiotics (likely to
be completed as an outpatient). Okay to resume Eliquis 48 hours postoperatively.
-- Advance to LFD
-- Abx: Ceftriaxone and Flagyl
-- Pain control: Tylenol, Toradol, Oxycodone
-- DVT: Lovenox, OK to resume Eliquis 48 hours post-op
-- GI:P PPI
-- Maintain HARJINDER for today, removal tomorrow versus Friday
Subjective Data
-
Date of Service: January 19, 2025
No complaints. Pain well-controlled. Denies nausea. Afebrile.
Objective Data
-
Intake and Output
01/18/25 01/19/25 01/20/25
06:59 06:59 06:59
Intake Total 680 / 680 2180 / 2180
Output Total 350 / 350 1075 / 1075
Balance 330 / 330 1105 / 1105
Intake:
Oral fluids 480 / 480 480 / 480
IV fluids (Total) 1500 / 1500
Normosol 300 / 300
IV piggybacks 200 / 200 200 / 200
Output:
Drain Output (Total) 50 / 50
Right Abdomen Juan F-Terry 50 / 50
Urine, Voided 350 / 350 1025 / 1025
Vital Signs
Temp Pulse Resp BP Pulse Ox
97.9 F 67 18 136/70 97
01/19/25 08:00 01/19/25 10:38 01/19/25 08:00 01/19/25 10:38 01/19/25 08:00
Lab Results
01/19/25 06:39
01/19/25 06:39
Calcium 8.5 mg/dl (8.4-10.2) 01/19/25 06:39
Total Bilirubin 1.1 mg/dl (0.2-1.3) D 01/19/25 06:39
AST 23 U/L (17-59) 01/19/25 06:39
ALT 18 U/L (0-50) 01/19/25 06:39
Alkaline Phosphatase 72 U/L (38-126) 01/19/25 06:39
Total Protein 5.7 g/dl (6.3-8.2) L 01/19/25 06:39
Albumin 2.9 g/dl (3.5-5.0) L 01/19/25 06:39
Physical Exam
-
Gen: NAD
Abd: soft, mild/moderate tenderness, ND, non-peritoneal, incisions c/d/i - no erythema, ecchymosis or drainage, HARJINDER serosang, non-bilious
Patient has a doyle catheter: No
Patient has a central line: No
--- NOTE | 2025-01-19 12:02 | W.PN.HOSP.TC ---
Today's Communication/Plan
-
Monitor vital signs
see plan
Advance diet per surgery
Lovenox for now
Continue to hold Eliquis
Continue with ceftriaxone and Flagyl
PT evaluation
DC further fluids
Assessment / Plan
Assessment / Plan
Impression
79 years old male with ASCVD, type 2 diabetes, obesity underwent colonoscopy on 01/14 with small rectal polyp removed. 2 days after colonoscopy patient developed abdominal pain mostly at the epigastric and right upper quadrant area nausea and dry
heaves.
Acute cholecystitis
Other conditions
Recent hospitalization with mechanical fall and right hip fracture requiring gamma nail fixation 10/13
Chronic CHF mildly reduced EF)�EF 45 to�50% by echo 09/12
CAD status post BMS x 2 unknown
Persistent atrial fibrillation baseline chronic Eliquis therapy.
Moderate MR
Dyslipidemia
Type 2 diabetes.
Obstructive sleep apnea on CPAP at night
Obesity due to excessive calories BMI 38.2
BPH
Hyponatremia
Plan
Acute cholecystitis.
Status post laparoscopic cholecystectomy on 01/18. Intraoperative findings consistent with gangrenous cholecystitis
Continue to biotics: Ceftriaxone/Flagyl.
Continue holding Eliquis; restart when ok with surgery. until then lovenox for DVTppx
diet per surgery
Continue PPI
maintain HARJINDER drain
ASCVD.
Permanent A-fib.
Chronic CHF mildly reduced EF.
Is compensated.
Hold Lasix acutely given reduced oral intake
Continue metoprolol, amlodipine
Type 2 diabetes.
Update hemoglobin A1c 6.1
Outpatient regimen including Trulicity and pioglitazone.
Hold pioglitazone acutely.
Moving forward TZD probably not the best option for patient with CHF
Insulin basal bolus protocol with serial Accu-Cheks
General: Well Developed and No Apparent Distress
HEENT: Normocephalic, Atraumatic and Moist Mucous Membranes
Respiratory: Clear to Auscultation
Cardiac: Regular Rhythm and S1/S2; Negative Murmur, Rub or Gallop
GI: Soft, Nontender, Nondistended and Normal Bowel Sounds;+ lap incisions
Musculoskeletal:No Edema
Skin: Negative Rash
Neuro: Nonfocal/Grossly Intact
Anticipated Discharge: 24 - 48 hours
Subjective/Interval History
-
Date of Service: January 19, 2025
denies nausea
Objective Data
-
Labs:
Laboratory Results
01/19/25
06:39
WBC 14.4 H
Hgb 11.3 L
Hct 33.6 L
Plt Count 186
Sodium 132 L
Potassium 3.7
Chloride 98
Carbon Dioxide 30
BUN 20
Creatinine 0.8
Glucose 157 H
Calcium 8.5
Total Bilirubin 1.1 D
AST 23
ALT 18
Alkaline Phosphatase 72
Vital Signs:
Vital Signs
Temp Pulse Resp BP Pulse Ox
97.9 F 67 18 136/70 97
01/19/25 08:00 01/19/25 10:38 01/19/25 08:00 01/19/25 10:38 01/19/25 08:00
I&O
01/18/25 01/19/25 01/20/25
06:59 06:59 06:59
Intake Total 680 / 680 2180 / 2180
Output Total 350 / 350 1075 / 1075
Balance 330 / 330 1105 / 1105
[2025-01-19 12:16] LABS: Glucose - Point of Care 196 mg/dl (70-99)
[2025-01-19 13:12] VITALS: BP 125/69
[2025-01-19] MEDS: NOVOLOG FLEXPEN-LOW RESISTANCE 1 UNITS SC (13:46)
[2025-01-19] MEDS: ROCEPHIN 1000 MG IV (13:47)
[2025-01-19] MEDS: STERILE WATER FOR INJECTION 10 ML IV (13:47)
--- NOTE | 2025-01-19 14:59 | CM ---
CM reviewed chart, patient seen bedside, primarily [place] speaking.
Call to patients son, Rashawn, to discuss therapy recommendations of home health.
Rashawn agreeable, reports patient has had home therapy in the past, unsure agency name, will find out and let CM know.
Plan to advance diet per surgery, maintain HARJINDER for today, removal tomorrow versus Friday.
CM will continue to follow for all d/c planning needs.
Plan; home with family, caregivers, [facility] agency (family will update CM on agency)
[2025-01-19 16:00] VITALS: BP 128/61
[2025-01-19 16:52] LABS: Glucose - Point of Care 222 mg/dl (70-99)
[2025-01-19] MEDS: NOVOLOG FLEXPEN-LOW RESISTANCE 2 UNITS SC (18:05)
[2025-01-19] MEDS: LIPITOR 20 MG PO (18:06)
[2025-01-19] MEDS: LOVENOX 40 MG SC (18:06)
[2025-01-19 21:00] LABS: Glucose - Point of Care 151 mg/dl (70-99)
[2025-01-19] MEDS: FLOMAX 0.8 MG PO (21:10)
[2025-01-19 23:44] VITALS: BP 136/72
[2025-01-20] MEDS: FLAGYL 500 MG 100 IV ×3 (05:01→21:11)
[2025-01-20 05:21] VITALS: BMI 40.2
[2025-01-20 08:14] LABS: Hematocrit 32.8 % (39.0-52.0); Hemoglobin 10.7 g/dL (13.0-18.0); Mean Corp Hgb Conc. 32.6 g/dL (33.0-37.0); Mean Corpuscular Volume 77.0 fL (80.0-94.0); Nucleated Red Blood Cells % 0 % (-); Platelet Count 168 10^3/uL (130-400); Red Cell Dist. Width 18.2 % (11.5-14.5)
[2025-01-20 08:31] LABS: Glucose - Point of Care 125 mg/dl (70-99)
[2025-01-20] MEDS: NOVOLOG FLEXPEN-LOW RESISTANCE SC ×2 (08:32→12:16)
[2025-01-20 08:36] LABS: ALT (SGPT) 17 U/L (0-50); AST (SGOT) 21 U/L (17-59); Albumin 3.0 g/dl (3.5-5.0); Alkaline Phosphatase 75 U/L (38-126); Blood Urea Nitrogen 24 mg/dl (9-20); Calcium 8.4 mg/dl (8.4-10.2); Carbon Dioxide 29 mmol/L (22-30); Chloride 102 mmol/L (98-107); Estimated Creatinine Clearance 102 ml/min; Glucose 139 mg/dl (70-99); Potassium 3.6 mmol/L (3.5-5.1); Sodium 136 mmol/L (135-145); Total Protein 5.7 g/dl (6.3-8.2); eGFR > 60.00
[2025-01-20 08:49] VITALS: BP 138/69
[2025-01-20] MEDS: NORVASC 10 MG PO (08:53)
[2025-01-20] MEDS: PROTONIX 40 MG PO (08:54)
[2025-01-20] MEDS: CELEXA 10 MG PO (08:54)
[2025-01-20] MEDS: LOPRESSOR 25 MG PO ×2 (08:54→19:55)
[2025-01-20 12:14] LABS: Glucose - Point of Care 146 mg/dl (70-99)
--- NOTE | 2025-01-20 12:32 | W.PN.HOSP.TC ---
Today's Communication/Plan
-
Monitor vital signs and see plan
Continue to hold Eliquis, restart when okay with surgery
Maintain HARJINDER drain per surgery
hopeful dc tomorrow
Assessment / Plan
Assessment / Plan
Impression
79 years old male with ASCVD, type 2 diabetes, obesity underwent colonoscopy on 01/14 with small rectal polyp removed. 2 days after colonoscopy patient developed abdominal pain mostly at the epigastric and right upper quadrant area nausea and dry
heaves.
Acute cholecystitis
Other conditions
Recent hospitalization with mechanical fall and right hip fracture requiring gamma nail fixation 10/13
Chronic CHF mildly reduced EF)�EF 45 to�50% by echo 09/12
CAD status post BMS x 2 unknown
Persistent atrial fibrillation baseline chronic Eliquis therapy.
Moderate MR
Dyslipidemia
Type 2 diabetes.
Obstructive sleep apnea on CPAP at night
Obesity due to excessive calories BMI 38.2
BPH
Hyponatremia
Plan
Acute cholecystitis.
Status post laparoscopic cholecystectomy on 01/18. Intraoperative findings consistent with gangrenous cholecystitis
Continue with abx Ceftriaxone/Flagyl.
Continue holding Eliquis; restart when ok with surgery. until then lovenox for DVTppx
diet per surgery
Continue PPI
maintain HARJINDER drain per surgery
ASCVD.
Permanent A-fib.
Chronic CHF mildly reduced EF.
Is compensated.
Hold Lasix acutely given reduced oral intake
Continue metoprolol, amlodipine
Type 2 diabetes.
Update hemoglobin A1c 6.1
Outpatient regimen including Trulicity and pioglitazone.
Hold pioglitazone acutely.
Moving forward TZD probably not the best option for patient with CHF
Insulin basal bolus protocol with serial Accu-Cheks
General: Well Developed and No Apparent Distress
HEENT: Normocephalic, Atraumatic and Moist Mucous Membranes
Respiratory: Clear to Auscultation
Cardiac: Regular Rhythm and S1/S2; Negative Murmur, Rub or Gallop
GI: Soft, Nontender, Nondistended and Normal Bowel Sounds;+ lap incisions
Musculoskeletal:No Edema
Skin: Negative Rash
Neuro: Nonfocal/Grossly Intact
Anticipated Discharge: Within 24 hours
Subjective/Interval History
-
Date of Service: January 20, 2025
denies pain
Objective Data
-
Labs:
Laboratory Results
01/20/25
06:56
WBC 9.7
Hgb 10.7 L
Hct 32.8 L
Plt Count 168
Sodium 136
Potassium 3.6
Chloride 102
Carbon Dioxide 29
BUN 24 H
Creatinine 0.8
Glucose 139 H
Calcium 8.4
Total Bilirubin 0.6
AST 21
ALT 17
Alkaline Phosphatase 75
Vital Signs:
Vital Signs
Temp Pulse Resp BP Pulse Ox
97.9 F 64 18 138/69 93
01/20/25 08:49 01/20/25 08:53 01/20/25 08:49 01/20/25 08:53 01/20/25 08:49
I&O
01/19/25 01/20/25 01/21/25
06:59 06:59 06:59
Intake Total 2180 / 2180 1160 / 1160
Output Total 1075 / 1075 1190 / 1190
Balance 1105 / 1105 -30 / -30
--- NOTE | 2025-01-20 13:06 | W.PN.GS2 ---
Today's Communication / Plan
-
-- Abx: Ceftriaxone and Flagyl, DC on 7 days abx total
-- DVT: Lovenox, OK to resume Eliquis
-- HARJINDER removed
-- OK for DC from surgical perspective
-- DC instructions updated
Assessment / Plan
-
Patient is a 79 yo M p/w acute cholecystitis
POD#2 s/p laparoscopic cholecystectomy
AVSS
Labs notable for normalized WBC, stable Hb, normal electrolytes, normal renal function, normalized bilirubin, normal LFTs and ALP
Recovering well. No postoperative concerns. HARJINDER drain removed. OK to resume Eliquis. DC on 7 days of antibiotics.
-- LFD
-- Abx: Ceftriaxone and Flagyl, DC on 7 days abx total
-- Pain control: Tylenol, Toradol, Oxycodone
-- DVT: Lovenox, OK to resume Eliquis
-- GI:P PPI
-- HARJINDER removed
-- OK for DC from surgical perspective
-- DC instructions updated
Subjective Data
-
Date of Service: January 20, 2025
Tolerating diet. Mild pain. No nausea or vomiting. No fevers.
Objective Data
-
Intake and Output
01/19/25 01/20/25 01/21/25
06:59 06:59 06:59
Intake Total 2180 / 2180 1160 / 1160
Output Total 1075 / 1075 1190 / 1190
Balance 1105 / 1105 -30 / -30
Intake:
Oral fluids 480 / 480 960 / 960
IV fluids (Total) 1500 / 1500
Normosol 300 / 300
IV piggybacks 200 / 200 200 / 200
Output:
Drain Output (Total) 50 / 50 90 / 90
Right Abdomen Juan F-Terry 50 / 50 90 / 90
Urine, Voided 1025 / 1025 1100 / 1100
Vital Signs
Temp Pulse Resp BP Pulse Ox
97.9 F 64 18 138/69 93
01/20/25 08:49 01/20/25 08:53 01/20/25 08:49 01/20/25 08:53 01/20/25 08:49
Lab Results
01/20/25 06:56
01/20/25 06:56
Calcium 8.4 mg/dl (8.4-10.2) 01/20/25 06:56
Total Bilirubin 0.6 mg/dl (0.2-1.3) 01/20/25 06:56
AST 21 U/L (17-59) 01/20/25 06:56
ALT 17 U/L (0-50) 01/20/25 06:56
Alkaline Phosphatase 75 U/L (38-126) 01/20/25 06:56
Total Protein 5.7 g/dl (6.3-8.2) L 01/20/25 06:56
Albumin 3.0 g/dl (3.5-5.0) L 01/20/25 06:56
Physical Exam
-
Gen: NAD
Abd: soft, mild tenderness on RIGHT abdomen, obese, ND, non-peritoneal, incisions c/d/i - no erythema, ecchymosis or drainage, HARJINDER serosang, non-bilious
Patient has a doyle catheter: No
Patient has a central line: No
--- NOTE | 2025-01-20 14:01 | CM ---
CM reviewed chart, patient seen bedside.
Call to patients son, Rashawn, discussed discharge planning. Rashawn confirms patient will have transport home when stable.
CM discussed PT recommendation of home siva, Rashawn will find out for CM tomorrow which home care agency patient had in past.
CM will continue to follow for all discharge planning needs.
Plan; home with family, son to provide name of previous home care agency to place referral.
[2025-01-20] MEDS: STERILE WATER FOR INJECTION 10 ML IV (14:19)
[2025-01-20] MEDS: ROCEPHIN 1000 MG IV (14:20)
[2025-01-20 16:24] VITALS: BP 137/62
[2025-01-20 16:57] LABS: Glucose - Point of Care 269 mg/dl (70-99)
[2025-01-20] MEDS: LIPITOR 20 MG PO (17:03)
[2025-01-20] MEDS: NOVOLOG FLEXPEN-LOW RESISTANCE 3 UNITS SC (18:27)
[2025-01-20] MEDS: ELIQUIS 5 MG PO (19:56)
[2025-01-20] MEDS: FLOMAX 0.8 MG PO (21:11)
[2025-01-20 21:31] LABS: Glucose - Point of Care 143 mg/dl (70-99)
[2025-01-20 23:20] VITALS: BP 147/79
[2025-01-21] MEDS: FLAGYL 500 MG 100 IV ×2 (05:13→13:28)
[2025-01-21 05:53] VITALS: BMI 40.2
[2025-01-21 08:03] LABS: Glucose - Point of Care 145 mg/dl (70-99)
[2025-01-21] MEDS: NOVOLOG FLEXPEN-LOW RESISTANCE SC (08:04)
[2025-01-21 08:05] VITALS: BP 143/67
[2025-01-21] MEDS: ELIQUIS 5 MG PO (08:39)
[2025-01-21] MEDS: PROTONIX 40 MG PO (08:39)
[2025-01-21] MEDS: LOPRESSOR PO (08:39)
[2025-01-21] MEDS: NORVASC 10 MG PO (08:39)
[2025-01-21] MEDS: CELEXA 10 MG PO (08:39)
[2025-01-21 08:50] LABS: Hematocrit 32.6 % (39.0-52.0); Hemoglobin 10.3 g/dL (13.0-18.0); Mean Corp Hgb Conc. 31.6 g/dL (33.0-37.0); Mean Corpuscular Volume 76.0 fL (80.0-94.0); Nucleated Red Blood Cells % 0 % (-); Platelet Count 184 10^3/uL (130-400); Red Cell Dist. Width 18.6 % (11.5-14.5)
[2025-01-21 09:45] LABS: ALT (SGPT) 20 U/L (0-50); AST (SGOT) 24 U/L (17-59); Albumin 3.0 g/dl (3.5-5.0); Alkaline Phosphatase 75 U/L (38-126); Blood Urea Nitrogen 19 mg/dl (9-20); Calcium 8.2 mg/dl (8.4-10.2); Carbon Dioxide 29 mmol/L (22-30); Chloride 102 mmol/L (98-107); Estimated Creatinine Clearance 116 ml/min; Glucose 137 mg/dl (70-99); Potassium 3.3 mmol/L (3.5-5.1); Sodium 137 mmol/L (135-145); Total Protein 5.8 g/dl (6.3-8.2); eGFR > 60.00
--- NOTE | 2025-01-21 09:48 | W.PN.GS2 ---
Today's Communication / Plan
-
dispo planning
Assessment / Plan
-
Patient is a 79 yo M p/w acute cholecystitis
POD#3 s/p laparoscopic cholecystectomy
AVSS
Labs notable for normalized WBC, stable Hb, normal electrolytes, normal renal function, normalized bilirubin, normal LFTs and ALP
Recovering well. No postoperative concerns. HARJINDER drain removed on 01/20. OK to resume Eliquis. DC on PO antibiotics for total of 7 days.
Plan
-- LFD
-- Abx: Ceftriaxone and Flagyl, transition to PO agents upon d/c for 7 days abx total
-- Pain control: Tylenol, Toradol, Oxycodone
-- Ok to continue Eliquis
-- GI:P PPI
-- OK for DC from surgical perspective
-- DC instructions updated
Subjective Data
-
Date of Service: January 21, 2025
Pt seen and examined at bedside with Dr. Whipple. Jax n/v. Tolerating diet. Minimal discomfort. Feels ready to go home.
Objective Data
-
Intake and Output
01/20/25 01/21/25 01/22/25
06:59 06:59 06:59
Intake Total 1160 / 1160 640 / 640
Output Total 1190 / 1190 1575 / 1575
Balance -30 / -30 -935 / -935
Intake:
Oral fluids 960 / 960 540 / 540
IV piggybacks 200 / 200 100 / 100
Output:
Drain Output (Total) 90 / 90
Right Abdomen Juan F-Terry 90 / 90
Urine, Voided 1100 / 1100 1575 / 1575
Vital Signs
Temp Pulse Resp BP Pulse Ox
97.6 F 59 18 143/67 95
01/21/25 08:05 01/21/25 08:39 01/21/25 08:05 01/21/25 08:05 01/21/25 08:05
Lab Results
01/21/25 08:08
01/21/25 08:07
Calcium 8.2 mg/dl (8.4-10.2) L 01/21/25 08:07
Total Bilirubin 0.5 mg/dl (0.2-1.3) 01/21/25 08:07
AST 24 U/L (17-59) 01/21/25 08:07
ALT 20 U/L (0-50) 01/21/25 08:07
Alkaline Phosphatase 75 U/L (38-126) 01/21/25 08:07
Total Protein 5.8 g/dl (6.3-8.2) L 01/21/25 08:07
Albumin 3.0 g/dl (3.5-5.0) L 01/21/25 08:07
Physical Exam
-
Gen: NAD
Abd: soft, NT, obese, ND, non-peritoneal, incisions c/d/i - no erythema, ecchymosis or drainage, prior HARJINDER site without drainage
Patient has a doyle catheter: No
Patient has a central line: No
--- NOTE | 2025-01-21 10:31 | W.PN.HOSP.TC ---
Today's Communication/Plan
-
Monitor vitals
See plan
Switch to p.o. antibiotics
Discharge today
Time of discharge 38 minutes
Assessment / Plan
Assessment / Plan
Impression
79 years old male with ASCVD, type 2 diabetes, obesity underwent colonoscopy on 01/14 with small rectal polyp removed. 2 days after colonoscopy patient developed abdominal pain mostly at the epigastric and right upper quadrant area nausea and dry
heaves.
Acute cholecystitis
Other conditions
Recent hospitalization with mechanical fall and right hip fracture requiring gamma nail fixation 10/13
Chronic CHF mildly reduced EF)�EF 45 to�50% by echo 09/12
CAD status post BMS x 2 unknown
Persistent atrial fibrillation baseline chronic Eliquis therapy.
Moderate MR
Dyslipidemia
Type 2 diabetes.
Obstructive sleep apnea on CPAP at night
Obesity due to excessive calories BMI 38.2
BPH
Hyponatremia
Plan
Acute cholecystitis.
Status post laparoscopic cholecystectomy on 01/18. Intraoperative findings consistent with gangrenous cholecystitis
Continue with abx Ceftriaxone/Flagyl. Discharge on p.o. antibiotic to complete the course
Eliquis restarted
diet per surgery
Continue PPI
HARJINDER drain removed by surgery
ASCVD.
Permanent A-fib.
Chronic CHF mildly reduced EF.
Is compensated.
restart lasix
Continue metoprolol, amlodipine
Type 2 diabetes.
Update hemoglobin A1c 6.1
Outpatient regimen including Trulicity and pioglitazone.
Hold pioglitazone acutely. hold until sees by his physician
Moving forward TZD probably not the best option for patient with CHF
Insulin basal bolus protocol with serial Accu-Cheks
General: Well Developed and No Apparent Distress
HEENT: Normocephalic, Atraumatic and Moist Mucous Membranes
Respiratory: Clear to Auscultation
Cardiac: Regular Rhythm and S1/S2; Negative Murmur, Rub or Gallop
GI: Soft, Nontender, Nondistended and Normal Bowel Sounds;+ lap incisions
Musculoskeletal:No Edema
Skin: Negative Rash
Neuro: Nonfocal/Grossly Intact
Anticipated Discharge: Today
Subjective/Interval History
-
Date of Service: January 21, 2025
Denies nausea
Objective Data
-
Labs:
Laboratory Results
01/21/25 01/21/25
08:07 08:08
WBC 6.4
Hgb 10.3 L
Hct 32.6 L
Plt Count 184
Sodium 137
Potassium 3.3 L
Chloride 102
Carbon Dioxide 29
BUN 19
Creatinine 0.7
Glucose 137 H
Calcium 8.2 L
Total Bilirubin 0.5
AST 24
ALT 20
Alkaline Phosphatase 75
Vital Signs:
Vital Signs
Temp Pulse Resp BP Pulse Ox
97.6 F 59 18 143/67 95
01/21/25 08:05 01/21/25 08:39 01/21/25 08:05 01/21/25 08:05 01/21/25 08:05
I&O
01/20/25 01/21/25 01/22/25
06:59 06:59 06:59
Intake Total 1160 / 1160 640 / 640
Output Total 1190 / 1190 1575 / 1575
Balance -30 / -30 -935 / -935
--- NOTE | 2025-01-21 10:45 | W.DCSUMMARY ---
Discharge Summary
Discharge Data
Date of Admission: 01/17/25
Date of Discharge: 01/21/25
-
Pending Results: No
Hospital Course
79-year-old male with past medical history of CHF, CAD, persistent atrial fibrillation, mitral regurgitation, hyperlipidemia, type 2 diabetes mellitus, obstructive sleep apnea, obesity, BPH came to the hospital with acute cholecystitis. Patient was
seen by surgery and was taken for laparoscopic cholecystectomy. Intraoperative findings were consistent with gangrenous cholecystitis. Patient initially required IV antibiotic which were later transitioned to p.o. antibiotic to complete the course
prior to discharge. Once his symptoms continue to improve and he was able to tolerate diet, he was then discharged home with instructions to follow-up with all his physicians outpatient.
Discharge Plan
-
Patient Disposition: Home (Routine Discharge)
Discharge Diagnosis/Procedures: Acute cholecystitis s/p laparoscopic cholecystectomy
Condition: Fair
Diet: Regular and Low Fat
Activity: No strenuous activity
Additional Activity: No heavy lifting (>20 lbs) or strenuous activities for 2 to 3 weeks postoperatively
Driving Restrictions: No driving if too sore or taking narcotics
Bathing Restrictions: OK to Shower
Wound Care: Keep incisions clean and dry. Glue will flake off in 2 to 3 weeks. Stitches will dissolve. Use ice to the abdomen to reduce any bruising or swelling.
Activity Restrictions/Additional Instructions:
Call for fevers (>100.5), nausea or vomiting, worsening abdominal pain, yellowing of the eyes or skin
Referrals:
Lu Lopez NP [Family Provider, Family Practice] - in less than 1 week
Rui Mckeon MD [Active, Surgical] - in two to four weeks
Prescriptions:
New
cefdinir 300 mg capsule
300 mg PO BID 4 Days Qty: 8 0RF
metronidazole 500 mg tablet
500 mg PO Q8H 4 Days Qty: 12 0RF
Continued
citalopram 10 MG tablet
10 mg PO DAILY
pantoprazole 40 mg tablet,delayed release (DR/EC)
40 mg PO DAILY
Trulicity 4.5 mg/0.5 mL pen injector
4.5 mg SC WE@1900
tamsulosin [Flomax] 0.4 mg Capsule
0.8 mg PO HS
Eliquis 5 mg Tablet
5 mg PO BID
furosemide 40 mg Tablet
40 mg PO DAILY Qty: 0 0RF
atorvastatin [Lipitor] 20 mg Tablet
20 mg PO QPM
amlodipine [Norvasc] 10 mg Tablet
10 mg PO DAILY
ergocalciferol (vitamin D2) 1,250 mcg (50,000 unit) Capsule
1,250 mcg PO HSU
metoprolol tartrate 25 mg Tablet
25 mg PO BID
Held
pioglitazone 30 mg tablet
30 mg PO DAILY
Hold Instructions: Restart when okay with your primary care provider
Discharge Orders:
Discharge Patient (As Directed); Ordered 01/21/25
Ordered By: Arash Arenas
Discharge Date and Time
Discharge Date/Time: 01/21/25 15:43
Print Language: American
--- NOTE | 2025-01-21 11:14 | CM ---
Addendum entered by Deedee Boston 01/21/25 11:54:
[facility]
Original Note:
CM reviewed chart, patient for d/c today.
Call to patients son, Rashawn, will provide transportation home around 2:30 p.m. after patient receives antibiotic.
Patient history with [facility]- will send referral in [facility].
IMM verbally reviewed, provided with copy, placed in chart.
CM will continue to follow for all d/c planning needs.
Plan; home with referral to [facility]
[2025-01-21 11:57] LABS: Glucose - Point of Care 198 mg/dl (70-99)
[2025-01-21] MEDS: NOVOLOG FLEXPEN-LOW RESISTANCE 1 UNITS SC (12:19)
[2025-01-21] MEDS: STERILE WATER FOR INJECTION 10 ML IV (13:28)
[2025-01-21] MEDS: ROCEPHIN 1000 MG IV (13:29)
== END 2025-01-21 15:43 | disposition home health service (06) | DRG 418 ==
LOC: 4 WEST ACU 15:26
PROVIDERS: Physician Assistant Medical; Surgery; ADMITTING PHYSICIAN Internal Medicine; ATTENDING PHYSICIAN Internal Medicine; CONSULT PHYSICIAN Surgery; EMERGENCY PHYSICIAN Emergency Medicine; FAMILY PHYSICIAN Nurse Practitioner Adult Health
PROC: 0FT44ZZ Resection of Gallbladder, Percutaneous Endoscopic Approach (ICD-10-PCS; 2025-01-18)
DX: K81.0 Acute cholecystitis (principal); E87.1 Hypo-osmolality and hyponatremia; I13.0 Hypertensive heart and chronic kidney disease with heart failure and stage 1 through stage 4 chronic kidney disease, or unspecified chronic kidney disease; I50.22 Chronic systolic (congestive) heart failure; I48.21 Permanent atrial fibrillation; R18.8 Other ascites; K82.A2 Perforation of gallbladder in cholecystitis; N18.2 Chronic kidney disease, stage 2 (mild); E11.22 Type 2 diabetes mellitus with diabetic chronic kidney disease; E78.00 Pure hypercholesterolemia, unspecified; G47.33 Obstructive sleep apnea (adult) (pediatric); I25.10 Atherosclerotic heart disease of native coronary artery without angina pectoris; N40.0 Benign prostatic hyperplasia without lower urinary tract symptoms; K76.0 Fatty (change of) liver, not elsewhere classified; K82.A1 Gangrene of gallbladder in cholecystitis; I34.0 Nonrheumatic mitral (valve) insufficiency; K82.8 Other specified diseases of gallbladder; F32.A Depression, unspecified; F41.9 Anxiety disorder, unspecified; E66.812 Obesity, class 2; Z87.442 Personal history of urinary calculi; Z95.5 Presence of coronary angioplasty implant and graft; Z79.01 Long term (current) use of anticoagulants; Z79.85 Long-term (current) use of injectable non-insulin antidiabetic drugs; Z68.38 Body mass index [BMI] 38.0-38.9, adult; Z91.040 Latex allergy status; Z79.899 Other long term (current) drug therapy; Z79.84 Long term (current) use of oral hypoglycemic drugs; Z86.0100 Personal history of colon polyps, unspecified
CPT/HCPCS: 74177; 76700; 80053; 82962; 83036; 83690; 84484; 85025; 85027; 88304; 93005; 94660; 96374; 96375; 97162; 99285; A4300; Q9967

== ENCOUNTER → 2025-02-16 14:31 | Outpatient (REF) | payer MEDICARE, OTHER, SELFPAY | LOC: HWRAD 14:31 | PROVIDERS: ATTENDING PHYSICIAN Urology; FAMILY PHYSICIAN Nurse Practitioner Adult Health | DX: N40.1 Benign prostatic hyperplasia with lower urinary tract symptoms (principal); N13.8 Other obstructive and reflux uropathy | CPT/HCPCS: 76770 ==